=== PATIENT | female | born 1960 | race Caucasian/White ===

== ENCOUNTER 2020-02-23 14:48 | Emergency (ER) | payer MEDICARE, SELFPAY ==
[2020-02-23 14:56] VITALS: BMI 22.6
[2020-02-23 15:01] VITALS: BP 152/109; PULSE 110; RESP 18; TEMP 37.1; O2SAT 97
[2020-02-23 15:08] VITALS: PULSE 99; RESP 18; O2SAT 96
--- NOTE | 2020-02-23 15:12 | PC.NURSE ---
PT STATES SHE HAS A PENDING TEST RESULT FOR COVID. PT PLACED ON DROPLET/AIRBORN PRECAUTIONS.
--- NOTE | 2020-02-23 15:17 | XR_ITS ---
WS: [id number] CHEST XRAY TECHNIQUE: Portable chest. CLINICAL INFORMATION: cough sob COMPARISON: None. FINDINGS: Heart: Normal cardiac silhouette. Lungs: Chronic emphysematous changes. No acute pulmonary infiltrates. No focal pneumonia. Bones: Normal visualized bony structures. XR/XR chest 1V portable [id number] IMPRESSION: Chronic emphysematous changes. No acute chest finding.
--- NOTE | 2020-02-23 15:17 | W.ED.GENADLT ---
HPI - General Adult General: Chief complaint: General Medical Stated complaint: poss allergic reaction Time Seen by Provider: 02/23/20 15:07 Source: patient Mode of arrival: ambulatory Limitations: no limitations History of Present Illness: HPI narrative: 60-year-old female comes in today for abnormal sensation after using a breathing treatment. Patient reports that she felt jittery and tingly all over after her second breathing treatment today. Patient has been put on albuterol with ipratropium for persistent cough with the diagnosis of pneumonia. Patient is also been tested for COVID x2 with the first test coming back negative. Patient appears well. Patient appears in no pain. Patient does appear anxious. Review of Systems General: Reports: 10 or more systems reviewed and unremarkable except in HPI and below Psych: Reports: other (tingling all over) PFSH ED PFSH: Social History Smoking and tobacco status: never smoked Physical Exam Const: COMMON NORMALS: no apparent distress and oriented x3 GENERAL APPEARANCE: cooperative HENMT: COMMON NORMALS: normocephalic, TM's normal bilaterally and external nose normal HEAD & SCALP: normal to inspection and normocephalic NOSE: external nose normal TYMPANIC MEMBRANE: TM's normal bilaterally MOUTH: oral and palatal mucosa normal THROAT: posterior oropharynx normal Eye: GENERAL EYE: normal appearance of both eyes Neck/C-Spine: COMMON NORMALS: full ROM Lymph: LYMPHATIC: no lymphadenopathy noted Chest: COMMONS NORMALS: inspection of chest normal OTHER: bibasilar rhonchi Resp: COMMON NORMALS: normal respiratory effort EFFORT & INSPECTION: Yes able to speak in complete sentences Cardio: COMMON NORMALS: regular rate and regular rhythm RATE: regular rate RHYTHM: regular rhythm GI: COMMON NORMALS: non-tender : COMMON NORMALS: Yes no CVA tenderness BLADDER/KIDNEY EXAM: Yes no CVA tenderness Back/Pelvis: COMMON NORMALS: no CVA tenderness and thoracic and lumbar spine normal to inspection Extremity: COMMON NORMALS: normal to inspection Neuro: COMMON NORMALS: oriented x3 and moves all extremities Psych: COMMON NORMALS: mental status grossly normal and cooperative Skin: COMMON NORMALS: no rashes or lesions noted GENERAL SKIN EXAM: no rashes or lesions noted Course Vital Signs: Vital signs: Vital Signs Temperature 98.8 F 02/23/20 15:01 Pulse Rate 99 02/23/20 15:08 Respiratory Rate 18 02/23/20 15:08 Blood Pressure 152/109 02/23/20 15:01 Pulse Oximetry 96 02/23/20 15:08 MDM - General Adult MDM Narrative: Medical decision making narrative: Patient comes in today for concerns of increased numbness and tingling all over after using albuterol breathing treatments. Exam lungs had good air expansion except for crackles in the bases. Respirations were even. Skin was warm and dry. No rash was noted. Differential diagnosis includes anxiety, adverse drug effect, pneumonia, respiratory failure. X-ray was done showing emphysematous type lungs. Patient has no history of COPD or asthma. Recommended patient follow-up with pulmonology due to persistent dyspnea and persistent cough. Patient was agreeable to plan. Patient has a family history of interstitial lung disease with her mother being positive for. Discharge Plan Discharge Patient Disposition: Home, Self-Care Clinical Impression: Abnormality of lung on chest x-ray Adverse effects of medication Qualifiers: Encounter type: initial encounter Qualified Code(s): T50.905A - Adverse effect of unspecified drugs, medicaments and biological substances, initial encounter Condition: Stable Prescriptions: No Action promethazine-DM 6.25-15 mg/5 mL syrup 6.25 - 15 ml PO Q6H PRN (Reason: Cough) RF: 0 albuterol sulfate 1.25 mg/3 mL Solution For Nebulization 1.25 mg INHALATION Q4H RF: 0 prednisone 20 mg tablet 20 mg PO DAILY RF: 0 citalopram 20 mg tablet 20 mg PO DAILY RF: 0 budesonide 0.5 mg/2 mL suspension for nebulization 0.5 mg inhalation BID RF: 0 diazepam 10 mg tablet 10 mg PO QID RF: 0 levofloxacin 500 mg tablet 500 mg PO DAILY RF: 0 Mucus Relief 400 mg Tablet 400 mg PO Q4H PRN (Reason: Congestion) RF: 0 duloxetine 60 mg capsule,delayed release(DR/EC) 60 mg PO DAILY RF: 0 Discharge Orders: Discharge Order (Routine); Ordered 02/23/20 Ordered By: Jmashid Salomon Referrals: Antwan Soni DO [Primary Care Provider] - Discharge Diet: Usual diet Discharge Activity: Increase activity as tolerated Patient Instructions: Pneumonia (ED) Activity Restrictions/Additional Instructions: Continue with prescribed medical treatment. Drink plenty of water with medications. Continue with self quarantine until results of second COVID test. Healthy diet and exercise. Follow-up with primary care in 1 week. Return to the emergency department for worsening symptoms or new concerns. Case management will contact you with follow-up appointment with pulmonology. Coding Level of Care Code ED Filler Feeder for Carlos Rollins Exam Comprehensive
[2020-02-23 16:39] VITALS: BP 149/94; PULSE 85; RESP 17; O2SAT 93
--- NOTE | 2020-02-25 11:10 | DCPLANNER ---
finance insurance manager had message to schedule a follow up appointment for patient with [facility], with Dr. Mayen. finance insurance manager called [facility], spoke with Becky, gave clinic patients information. A follow up appointment was scheduled for , March 02, 2020 at 11:[address] Mayen. Clinic will call patient wit appointment information.
--- NOTE | 2020-04-26 10:18 | DCPLANNER ---
Appointment scheduled for 03.02.20 with [facility] was cancelled.
== END 2020-02-23 16:28 | disposition home or self-care (01) ==
PROVIDERS: Emergency Provider Nurse Practitioner Family; PCP Internal Medicine
DX: T88.7XXA Unspecified adverse effect of drug or medicament, initial encounter (principal); T50.905A Adverse effect of unspecified drugs, medicaments and biological substances, initial encounter; R91.8 Other nonspecific abnormal finding of lung field
CPT/HCPCS: 12345; 71045; 99282

== ENCOUNTER 2020-02-29 00:29 | Inpatient (IN) | payer MEDICARE, SELFPAY ==
[2020-02-29] VITALS (8 sets, daily range): BP systolic 96–146; BP diastolic 63–104; PULSE 74–97; RESP 16–20; TEMP 37.1–37.2; O2SAT 93–97; BMI 18.6
--- NOTE | 2020-02-29 01:05 | W.ED.GENADLT ---
HPI - General Adult General: Chief complaint: General Medical Stated complaint: bleeding from nose/vag/rectum Time Seen by Provider: 02/29/20 00:35 History of Present Illness: HPI narrative: Mrs. Woo is a 60-year-old female who comes in with multiple complaints. She is tearful and almost acts like a child at times when trying to interview and examine her. The patient is a poor historian secondary to these findings. As best as I can gather the patient states that she developed a nosebleed then vaginal spotting and rectal bleeding tonight. The patient states that she was diagnosed with a viral type of bronchitis or pneumonia but has not been getting better. She states she has been tested twice for COVID-19 but is tested negative on both occasions. Patient states that she hurts diffusely. When I tried to ask her about other symptoms she continues to go back to the story of nasal and vaginal/rectal bleeding. My charge nurse talk to the patient's over the phone who states the patient has been acting bizarre for the past several days. He states it started whenever she was diagnosed with the viral bronchitis. Associated symptoms: Deny chest pain, confusion, diaphoresis, dyspnea, headache(s), malaise, nausea, rash, palpitations, syncope or vomiting Review of Systems General: Reports: other (negative unless marked) Const: Denies: fever, chills, body aches, fatigue, malaise or diaphoresis Eyes: Denies: change in vision or blurry vision ENMT: Reports: nose bleeds; Denies: throat pain, painful swallowing, hoarseness, ear pain, ear discharge, Change in hearing or nasal discharge Card: Denies: chest pain, palpitations, irregular heart rhythm, syncope, pre-syncope, shortness of breath on exertion or shortness of breath when lying down Resp: Denies: shortness of breath, productive cough, non-productive cough, wheezing, coughing up blood or chest congestion GI: Reports: blood in stool; Denies: abdominal pain, nausea, vomiting, vomiting blood, coffee grounds in vomit, diarrhea, constipation, cramping or black tarry stool : Reports: vaginal bleeding; Denies: flank pain, painful urination, urinary frequency, urinary urgency, decreased urine ouput, urinary incontinence or blood in urine Musc: Denies: neck pain, back pain, extremity pain, extremity swelling, joint pain, joint swelling, joint warmth or joint stiffness Skin/Breast: Denies: rash, skin tenderness or yellow skin Neuro: Denies: headache, numbness in extremities, weakness in extremities, changes in sensation, lack of coordination, difficulty walking, dizziness, vertigo or confusion Endo: Denies: excessive thirst, tired all the time, cold intolerance, excessive sweating, flushing or hot flashes Tyrel/Lymph: Denies: easy bruising, easy bleeding, petechiae or enlarged lymph nodes All/Imm: Denies: hives, throat swelling, tongue swelling, facial swelling or acute wheezing PFSH ED PFSH: Medical History (Updated 02/29/20 @ 03:53 by Yue Coffey MD) BPPV (benign paroxysmal positional vertigo) Depression Fibromyalgia Hypertension Normal colonoscopy Palpitations Surgical History (Updated 02/29/20 @ 03:52 by Yue Coffey MD) H/O ovarian cystectomy Hx of cholecystectomy S/P brain surgery As per the patient she has had decompressive surgeries for 8th nerve decompression for vertigo Status post right breast lumpectomy Social History Smoking and tobacco status: never smoked Physical Exam Const: COMMON NORMALS: no apparent distress, oriented x3, no limitations, healthy appearing and well nourished EXAM LIMITATIONS: no altered mental status GENERAL APPEARANCE: cooperative, well kempt and well developed ORIENTATION/CONSCIOUSNESS: Yes awake HENMT: COMMON NORMALS: normocephalic, head/scalp atraumatic, hearing grossly normal bilaterally, external ears normal, EAC's normal and external nose normal HEAD & SCALP: normal to inspection, normocephalic and atraumatic FACE & SINUS: normal facial exam and face symmetric NOSE: external nose normal and nares normal EXTERNAL EAR: Yes external ears normal EXTERNAL AUDITORY CANAL: EAC's normal MOUTH: tongue normal and moist mucous membranes abnormal Details: parched Eye: COMMON NORMALS: PERRL, EOMs intact bilaterally, conjunctivae normal and no scleral icterus GENERAL EYE: normal appearance of both eyes and normal light reflex CONJUNCTIVA: Yes conjunctivae normal SCLERA: sclerae normal CORNEA: Yes corneas normal PUPIL: Yes PERRL DIRECT OPHTHALMOSCOPY: Yes normal light reflex Neck/C-Spine: COMMON NORMALS: full ROM, no lymphadenopathy, supple, no meningeal signs and no JVD GENERAL: Yes normal visual inspection and Yes trachea midline CERVICAL SPINE: Yes cervical ROM normal Chest: COMMONS NORMALS: inspection of chest normal and palpation of chest normal Resp: COMMON NORMALS: normal respiratory effort, no retractions, no use of accessory muscles and clear to auscultation bilaterally EFFORT & INSPECTION: Yes able to speak in complete sentences AUSCULTATION: clear to auscultation bilaterally Cardio: COMMON NORMALS: no JVD, regular rate, regular rhythm, S1 normal heart sound, S2 normal heart sound, no gallops, no clicks, no murmurs and no rub JUGULAR VENOUS DISTENTION: no JVD RATE: regular rate RHYTHM: regular rhythm HEART SOUNDS: S1 normal and S2 normal GI: COMMON NORMALS: soft to palpation, non-tender, no hepatosplenomegaly and no masses INSPECTION: Yes normal to inspection PALPATION: Yes soft and Yes no hepatosplenomegaly RECTAL EXAM: visual inspection normal, normal sphincter tone and No heme positive stool : COMMON NORMALS: Yes no CVA tenderness and Yes bimanual exam normal BLADDER/KIDNEY EXAM: Yes no CVA tenderness SPECULUM EXAM - VAGINA: Yes vagina atrophic mucosa, No vaginal cyst, No vaginal erythema, No foreign body in vagina, No vaginal laceration, No vaginal lesion, No vaginal bleeding, No tissue present in vagina, No vaginal mass, No vaginal swelling, No vaginal tenderness, No vaginal polyp, No vaginal discharge and No vaginal ecchymosis SPECULUM EXAM - CERVIX: No cervical mass and No cervical tenderness BIMANUAL EXAM - VAGINA & UTERUS: Yes normal bimanual exam, Yes normal vaginal palpation, Yes normal cervical palpation, Yes cervical motion tenderness and No cervical tenderness OB/EXTERNAL & SPECULUM: no foreign bodies, no tissue noted in vagina and vaginal bleeding Back/Pelvis: COMMON NORMALS: no CVA tenderness, thoracic and lumbar spine normal to inspection, no thoracic nor lumbar tenderness and thoraco-lumbar ROM normal Extremity: COMMON NORMALS: normal to inspection, full ROM, normal capillary refill, no joint enlargement, no clubbing, cyanosis or edema and no calf tenderness Neuro: COMMON NORMALS: oriented x3, CN's II-XII intact bilaterally, moves all extremities, no focal motor deficits and no sensory deficits noted MENINGEAL SIGNS: Yes no meningeal signs Psych: COMMON NORMALS: mental status grossly normal, thought process normal, cooperative, affect normal, speech normal and activity/motor behavior normal APPEARANCE: Yes well kempt SPEECH: Yes normal speech THOUGHT PROCESS: normal thought process Skin: COMMON NORMALS: no rashes or lesions noted, skin turgor normal, no jaundice, no petechiae and no mottling GENERAL SKIN EXAM: no rashes or lesions noted and turgor normal Course ED course: 0127 - Orthostatic VSs - normal. Vital Signs: Vital signs: Vital Signs Temperature 98.7 F 02/29/20 00:44 Pulse Rate 75 02/29/20 00:44 Respiratory Rate 18 02/29/20 00:44 Blood Pressure 139/104 02/29/20 00:44 Pulse Oximetry 96 02/29/20 00:44 MDM - General Adult MDM Narrative: Medical decision making narrative: The patient acting bizarre has been a limit to my abilities to get an accurate history. She is able to answer yes/no questions so I believe her review of systems is accurate as long as she is being truthful. I have tried to reach her again by phone to get more history but he has been unreachable up to this point. Clinically the patient does appear very dehydrated as she has dry mucous membranes and we placed a straight cath in and only got 1 cc of urine out. She is also hyponatremic. It is very possible this could be a secondary dehydration due to a viral syndrome. The patient does not clinically appear to have encephalitis or meningitis. I see no evidence of pneumonia on her chest x-ray. UTI of course is a possibility and we will test this when she is able to make urine. A Col[place] catheter has been placed to strictly monitor urine output. I endorsed the case to Dr. Coffey and he will come down to see the patient in the emergency department to see if any other testing will be necessary on an inpatient basis and to admit her for at least rehydration. The patient very well need a psychiatric consult once she has been cleared definitively of any medical issues. Lab Data: Attestation: I reviewed the patient's lab results. Labs: Lab Results 02/29/20 02/29/20 02/29/20 Range/Units 01:05 01:05 01:05 WBC 16.8 H (4.0-10.0) 10^3/ uL RBC 5.37 H (4.1-5.3) 10^6/u L Hgb 15.2 (11.5-15.3) g/dL Hct 47.3 H (37.0-47.0) % MCV 88.1 (81-99) fL MCH 28.3 (28.0-34.0) pg MCHC 32.1 (30.0-36.0) g/dL RDW 13.1 (12.1-15.1) % Plt Count 377 (130-400) 10^3/c mm MPV 9.7 (7.4-10.4) fL Neut % (Auto) 91.0 % Lymph % (Auto) 5.5 % Mcdonough % (Auto) 2.9 % Eos % (Auto) 0.1 % Baso % (Auto) 0.1 % Neut # (Auto) 15.3 H (1.8-7.7) 10^3/u L Lymph # (Auto) 0.9 (0.8-4.8) 10^3/u L Mcdonough # (Auto) 0.5 (0.2-0.9) 10^3/u L Eos # (Auto) 0.0 (0.0-0.8) 10^3/u L Baso # (Auto) 0.0 (0.0-0.1) 10^3/u L Nucleated RBC % (a uto) 0 % Nucleated RBCs # 0.0 /100WBC PT 12.10 (10.5-13.3) SECO NDS INR 0.87 (0.8-1.2) APTT 28.9 (23.9-36.7) SECO NDS Sodium (136-145) mmol/L Potassium (3.5-5.1) mmol/L Chloride (98-107) mmol/L Carbon Dioxide (22-29) mmol/L Anion Gap (5-19) BUN (6-20) mg/dL Creatinine (0.5-0.9) mg/dL GFR Calculation (90-130) mL/min Glucose (65-115) mg/dL Calculated Osmolal ity (285-295) mOsm/k g Lactic Acid (0.5-2.2) mmol/L Calcium (8.5-10.5) mg/dL Total Bilirubin (0.15-1.2) mg/dL AST (0-32) U/L ALT (0-33) U/L Alkaline Phosphata se (35-105) IU/L Troponin T Baselin e (0-10) ng/mL Troponin T 120 Min [place] (0-10) ng/mL Delta Troponin T (0-10) ABS# Total Protein (6.6-8.7) g/dL Albumin (3.5-5.2) g/dL Globulin (1.3-4.6) g/dL Urine Color (Yellow) Urine Appearance (CLEAR) Urine pH (5-7) Ur Specific Gravit y (1.005-1.030) Urine Protein (Negative) Urine Glucose (UA) (Normal) Urine Ketones (Negative) Urine Blood (Negative) Urine Nitrate (Negative) Urine Bilirubin (NEGATIVE) Urine Urobilinogen (Negative) mg/dL Ur Leukocyte Selam ase (Negative) Urine RBC (0-2) /hpf Urine WBC (0-5) /hpf Ur Squamous Epith Cells (0-5) Urine Bacteria (NONE) Serum Ketones (Negative) Blood Type A Positive Rho(D) Type Positive Antibody Screen Negative 02/29/20 02/29/20 02/29/20 Range/Units 01:05 01:05 02:32 WBC (4.0-10.0) 10^3/ uL RBC (4.1-5.3) 10^6/u L Hgb (11.5-15.3) g/dL Hct (37.0-47.0) % MCV (81-99) fL MCH (28.0-34.0) pg MCHC (30.0-36.0) g/dL RDW (12.1-15.1) % Plt Count (130-400) 10^3/c mm MPV (7.4-10.4) fL Neut % (Auto) % Lymph % (Auto) % Mcdonough % (Auto) % Eos % (Auto) % Baso % (Auto) % Neut # (Auto) (1.8-7.7) 10^3/u L Lymph # (Auto) (0.8-4.8) 10^3/u L Mcdonough # (Auto) (0.2-0.9) 10^3/u L Eos # (Auto) (0.0-0.8) 10^3/u L Baso # (Auto) (0.0-0.1) 10^3/u L Nucleated RBC % (a uto) % Nucleated RBCs # /100WBC PT (10.5-13.3) SECO NDS INR (0.8-1.2) APTT (23.9-36.7) SECO NDS Sodium 127 L (136-145) mmol/L Potassium 4.4 (3.5-5.1) mmol/L Chloride 84 L (98-107) mmol/L Carbon Dioxide 24 (22-29) mmol/L Anion Gap 23.4 H (5-19) BUN 6 (6-20) mg/dL Creatinine 0.6 (0.5-0.9) mg/dL GFR Calculation 102.7 (90-130) mL/min Glucose 99 (65-115) mg/dL Calculated Osmolal ity 260 L (285-295) mOsm/k g Lactic Acid 1.1 (0.5-2.2) mmol/L Calcium 10.0 (8.5-10.5) mg/dL Total Bilirubin 1.1 (0.15-1.2) mg/dL AST 28 (0-32) U/L ALT 16 (0-33) U/L Alkaline Phosphata se 157 H (35-105) IU/L Troponin T Baselin e 11 H (0-10) ng/mL Troponin T 120 Min [place] (0-10) ng/mL Delta Troponin T (0-10) ABS# Total Protein 8.6 (6.6-8.7) g/dL Albumin 5.2 (3.5-5.2) g/dL Globulin 3.4 (1.3-4.6) g/dL Urine Color (Yellow) Urine Appearance (CLEAR) Urine pH (5-7) Ur Specific Gravit y (1.005-1.030) Urine Protein (Negative) Urine Glucose (UA) (Normal) Urine Ketones (Negative) Urine Blood (Negative) Urine Nitrate (Negative) Urine Bilirubin (NEGATIVE) Urine Urobilinogen (Negative) mg/dL Ur Leukocyte Selam ase (Negative) Urine RBC (0-2) /hpf Urine WBC (0-5) /hpf Ur Squamous Epith Cells (0-5) Urine Bacteria (NONE) Serum Ketones (Negative) Blood Type Rho(D) Type Antibody Screen 02/29/20 02/29/20 02/29/20 Range/Units 02:32 03:15 03:24 WBC (4.0-10.0) 10^3/ uL RBC (4.1-5.3) 10^6/u L Hgb (11.5-15.3) g/dL Hct (37.0-47.0) % MCV (81-99) fL MCH (28.0-34.0) pg MCHC (30.0-36.0) g/dL RDW (12.1-15.1) % Plt Count (130-400) 10^3/c mm MPV (7.4-10.4) fL Neut % (Auto) % Lymph % (Auto) % Mcdonough % (Auto) % Eos % (Auto) % Baso % (Auto) % Neut # (Auto) (1.8-7.7) 10^3/u L Lymph # (Auto) (0.8-4.8) 10^3/u L Mcdonough # (Auto) (0.2-0.9) 10^3/u L Eos # (Auto) (0.0-0.8) 10^3/u L Baso # (Auto) (0.0-0.1) 10^3/u L Nucleated RBC % (a uto) % Nucleated RBCs # /100WBC PT (10.5-13.3) SECO NDS INR (0.8-1.2) APTT (23.9-36.7) SECO NDS Sodium (136-145) mmol/L Potassium (3.5-5.1) mmol/L Chloride (98-107) mmol/L Carbon Dioxide (22-29) mmol/L Anion Gap (5-19) BUN (6-20) mg/dL Creatinine (0.5-0.9) mg/dL GFR Calculation (90-130) mL/min Glucose (65-115) mg/dL Calculated Osmolal ity (285-295) mOsm/k g Lactic Acid (0.5-2.2) mmol/L Calcium (8.5-10.5) mg/dL Total Bilirubin (0.15-1.2) mg/dL AST (0-32) U/L ALT (0-33) U/L Alkaline Phosphata se (35-105) IU/L Troponin T Baselin e (0-10) ng/mL Troponin T 120 Min [place] 8.70 (0-10) ng/mL Delta Troponin T -2.30 L (0-10) ABS# Total Protein (6.6-8.7) g/dL Albumin (3.5-5.2) g/dL Globulin (1.3-4.6) g/dL Urine Color Yellow (Yellow) Urine Appearance Clear (CLEAR) Urine pH 6.5 (5-7) Ur Specific Gravit y 1.005 (1.005-1.030) Urine Protein Neg (Negative) Urine Glucose (UA) Norm (Normal) Urine Ketones 2+ H (Negative) Urine Blood 2+ H (Negative) Urine Nitrate Negative (Negative) Urine Bilirubin Neg (NEGATIVE) Urine Urobilinogen Norm (Negative) mg/dL Ur Leukocyte Selam ase Negative (Negative) Urine RBC 0-4 H (0-2) /hpf Urine WBC Rare (0-5) /hpf Ur Squamous Epith Cells 0-4 H (0-5) Urine Bacteria 1+ H (NONE) Serum Ketones Negative (Negative) Blood Type Rho(D) Type Antibody Screen Imaging Data^: CXR: My impression: Hyperinflation but no evidence of acute cardiopulmonary disease. Similar to previous. EKG Data^: EKG 1: Attestation: I personally reviewed and interpreted this EKG as follows: EKG interpretation date: 02/29/20 EKG interpretation time: 02:55 Interpretation: Normal sinus rhythm at 72 beats a minute, setting of wandering and baseline artifact. No definite ST or T wave changes. Discharge Plan Discharge Patient Disposition: Placed in Observation Clinical Impression: Acute dehydration, Acute hyponatremia Altered mental status Qualifiers: Altered mental status type: unspecified Qualified Code(s): R41.82 - Altered mental status, unspecified Condition: Stable Referrals: Antwan Soni DO [Primary Care Provider] - Coding Level of Care Code ED Nuclear Fuel Processing Technician for g Fwd Exam Comprehensive
[2020-02-29 01:13] LABS: Basophils % 0.1 %; Eosinophils % 0.1 %; Hematocrit 47.3 % (37.0-47.0); Hemoglobin 15.2 g/dL (11.5-15.3); Lymphocytes # 0.9 10^3/uL (0.8-4.8); Lymphocytes % 5.5 %; Mean Corpuscular HGB Conc 32.1 g/dL (30.0-36.0); Mean Corpuscular Hemoglobin 28.3 pg (28.0-34.0); Mean Corpuscular Volume 88.1 fL (81-99); Mean Platelet Volume 9.7 fL (7.4-10.4); Monocytes # 0.5 10^3/uL (0.2-0.9); Monocytes % 2.9 %; Neutrophils # 15.3 10^3/uL (1.8-7.7); Nucleated Red Blood Cells % 0 %; Platelet Count 377 10^3/cmm (130-400); Red Blood Count 5.37 10^6/uL (4.1-5.3); Red Cell Distribution Width 13.1 % (12.1-15.1); White Blood Count 16.8 10^3/uL (4.0-10.0)
--- NOTE | 2020-02-29 01:21 | XR_ITS ---
WS: [id number] PORTABLE CHEST HISTORY: cough COMPARISON: 02/23/2020 Pulmonary hyperexpansion with emphysema. No pneumonia. Normal vasculature. No pleural effusion or pne umothorax. Cardiac size: Normal. Mediastinum/Aorta: Normal mediastinum. No osseous abnormality seen. XR/XR chest 1V portable [id number] IMPRESSION: Chronic emphysema with no acute cardiopulmonary disease.
[2020-02-29 01:24] LABS: INR 0.87 (0.8-1.2)
[2020-02-29 01:25] LABS: Partial Thromboplastin Time 28.9 SECONDS (23.9-36.7)
[2020-02-29 01:35] LABS: Alanine Aminotransferase 16 U/L (0-33); Albumin Level 5.2 g/dL (3.5-5.2); Alkaline Phosphatase 157 IU/L (35-105); Anion Gap 23.4 (5-19); Aspartate Amino Transferase 28 U/L (0-32); Blood Urea Nitrogen 6 mg/dL (6-20); Carbon Dioxide 24 mmol/L (22-29); Chloride 84 mmol/L (98-107); Globulin 3.4 g/dL (1.3-4.6); Glomerular Filtration Rate 102.7 mL/min (90-130); Glucose 99 mg/dL (65-115); Osmolality Calculated 260 mOsm/kg (285-295); Potassium 4.4 mmol/L (3.5-5.1); Sodium 127 mmol/L (136-145); Total Bilirubin 1.1 mg/dL (0.15-1.2); Total Protein 8.6 g/dL (6.6-8.7)
--- NOTE | 2020-02-29 01:40 | ECG_ITS ---
Measurements Intervals [place] Rate: 72 P: MA: 0 QRS: 65 QRSD: 74 T: 101 QT: 382 QTc: [address] & T-WAVE ABNORMALITY ABNORMAL RHYTHM ECG No previous ECG available for comparison Electronically Signed On 02-29-2020 18:09:55 CDT by Yue Ramirez M.D. [id number]
[2020-02-29 02:14] LABS: Troponin(5th) Baseline 11 ng/mL (0-10)
[2020-02-29 02:51] LABS: ABG PCO2 33.8 mmHg (35-45); ABG PH Result 7.43 (7.35-7.45); Arterial Blood Gas Hematocrit 41.4 % (37-47); Base Excess ABG -1.3 mmol/L (-2.0-2.0); Blood Gas Allen Test Pos; Blood Gas Sample Site Brachial, left; Blood Gas Sample Type Arterial; HCO3 ABG 22.4 mmol/L (22-26); PO2 ABG 76.8 mmHg (80.0-100.0)
[2020-02-29 02:55] LABS: Lactic Sepsis W/Reflex 1.1 mmol/L (0.5-2.2)
[2020-02-29] MEDS: sodium chloride 0.9% 1,000 ML 999 ML IV (02:57)
[2020-02-29 02:59] LABS: Ketone (Acetest) Serum Negative (Negative)
--- NOTE | 2020-02-29 03:40 | ECG_ITS ---
Measurements Intervals [place] Rate: 69 P: 89 MO: 125 QRS: 78 QRSD: 76 T: 60 QT: 357 QTc: 384 SINUS RHYTHM RIGHT ATRIAL ENLARGEMENT [0.3mV P WAVE] POSSIBLE LEFT ATRIAL ENLARGEMENT [-0.1mV P WAVE IN V1/V2] NONSPECIFIC T-WAVE ABNORMALITY No previous ECG available for comparison Electronically Signed On 02-29-2020 18:12:48 CDT by Yue Ramirez M.D. [email or web address]
[2020-02-29] MEDS: sodium chloride 0.9% 1,000 ML 100 ML IV ×2 (03:42→09:30)
[2020-02-29 03:44] LABS: Bacteria Urine 1+; Bilirubin Urine Neg (NEGATIVE); Blood Urine 2+ (Negative); Glucose Urine UA Norm (Normal); Ketones Urine 2+ (Negative); Leukocyte Esterase Urine Negative (Negative); Nitrate Urine Negative (Negative); Protein Urine Neg (Negative); RBC Urine 0-4 /hpf (0-2); Specific Gravity, Urine 1.005 (1.005-1.030); Squamous Epithelial Cell Urine 0-4 (0-5); Urine Appearance Clear (CLEAR); Urine Color Yellow (Yellow); Urobilinogen Urine Norm (Negative); WBC Urine RARE /hpf (0-5); pH Urine 6.5 (5-7)
--- NOTE | 2020-02-29 03:48 | PM.HP ---
Providers/Chief Complaint Primary Care Provider: Antwan Soni DO Chief Complaint: bleeding from nose/vag/rectum History of Present Illness Alla Woo is a 60 year old female who carries diagnosis of fibromyalgia, anxiety/depression came in after experiencing generalized body aches. Patient is stating that she suffered from upper airway infection 3 weeks ago for which she was treated with p.o. antibiotics, she was tested for COVID twice which was negative. She is stating that she is hurting all over, her energy is very low, she also endorsed some of her feelings that God came down to take care of her, he took her in his lap . She is endorsing that she is not eating well because of abnormal taste, she is not able to drink water because of abnormal taste as well. She is denying orthopnea, PND, fever, dysuria, change in bowel habits. Endorsing nonproductive cough, difficulty concentration while talking or doing any activity. As per the she has been acting bizarre since diagnosis of bronchitis. She told ER physician back she came to the hospital because she was bleeding from her nose, per rectum and vaginally, ER physician examined her, no evidence of bleeding was found. Diagnostics in ER revealed signs of dehydration with positive urinary ketones, hyponatremia, leukocytosis, normal hemodynamics, chest x-ray shows normal lungs however hyperinflated, EKG showing sinus rhythm with normal heart rate Review of Systems Const: Reports: chills, body aches, change in appetite, change in weight and fatigue; Denies: fever Eyes: Denies: change in vision ENMT: Reports: throat pain, mouth pain and dry mouth Card: Denies: chest pain Resp: Denies: shortness of breath GI: Denies: abdominal pain or nausea : Denies: flank pain or difficulty urinating Musc: Reports: back pain, extremity pain, joint pain and muscle cramps Skin/Breast: Denies: rash Neuro: Denies: headache Psych: Denies: anxiety Endo: Denies: excessive urination Tyrel/Lymph: Denies: easy bruising All/Imm: Denies: hives Medications/Allergies Home Medications Medication Instructions Recorded Confirmed Last Taken Type albuterol sulfate 1.25 mg INHALATION Q4H 02/23/20 02/23/20 02/23/20 History budesonide 0.5 mg INHALATION BID 02/23/20 02/23/20 02/23/20 History citalopram 20 mg PO DAILY 02/23/20 02/23/20 02/23/20 History diazepam 10 mg PO QID 02/23/20 02/23/20 02/23/20 History duloxetine 60 mg PO DAILY 02/23/20 02/23/20 02/23/20 History guaifenesin [Mucus Relief] 400 mg PO Q4H PRN 02/23/20 02/23/20 02/23/20 History levofloxacin 500 mg PO DAILY 02/23/20 02/23/20 02/23/20 History prednisone 20 mg PO DAILY 02/23/20 02/23/20 02/23/20 History promethazine-DM 6.25 - 15 ml PO Q6H PRN 02/23/20 02/23/20 02/23/20 History Allergies Allergy/AdvReac Type Severity Reaction Status Date / Time codeine Allergy Unknown Verified 02/23/20 15:03 [email or web address] [From Nubain] Allergy ALGY-Rash Verified 02/23/20 15:03 PFSH Acute PFSH: Medical History BPPV (benign paroxysmal positional vertigo) Depression Fibromyalgia Hypertension Normal colonoscopy Palpitations Surgical History H/O ovarian cystectomy Hx of cholecystectomy S/P brain surgery As per the patient she has had decompressive surgeries for 8th nerve decompression for vertigo Status post right breast lumpectomy Family History (Updated 02/29/20 @ 04:54 by Yue Coffey MD) Denies family history of Diabetes Clotting disorder Dementia Social History (Updated 02/29/20 @ 04:54 by Yue Coffey MD) Smoking and tobacco status: never smoked Alcohol intake: never Substance/Drug Use: never Household members: spouse Housing: House Vitals/I&O/Wt Last Vital Signs Temp 98.7 F 02/29/20 00:44 Pulse 75 02/29/20 00:44 Resp 18 02/29/20 00:44 BP 139/104 02/29/20 00:44 Pulse Ox 96 02/29/20 00:44 Weight last 48 hrs Weight 77.111 kg Physical Exam Narrative: EXAM NARRATIVE: Patient covered in multiple layers complaining of chills She is articulating in a childish manner, Able to state above-mentioned story, awake alert oriented x3, GCS 15, she complains of pain wherever I touch on her upper and lower extremities She looks dehydrated, extremely dry tongue S1, S2 no active murmur Abdomen soft, nontender, nondistended bowel sound present Lungs are clear to auscultation She seems very anxious and talking about God taking care of her, dilated pupils reactive to light, Skin does not show any sign of ischemia gangrene or ulcer Colmenares catheter that was placed in the ER only drained 1 cc of urine, catheter was removed later on Data : 02/29/20 01:05 02/29/20 01:05 A&P Assessment and plan (1) Acute dehydration: Status: Acute (2) Hyponatremia: Status: Acute (3) Metabolic encephalopathy: Status: Acute (4) Altered mental status: Status: Acute Qualifiers: Altered mental status type: unspecified Qualified Code(s): R41.82 - Altered mental status, unspecified (5) Adverse effects of medication: Status: Acute Qualifiers: Encounter type: initial encounter Qualified Code(s): T50.905A - Adverse effect of unspecified drugs, medicaments and biological substances, initial encounter (6) Bizarre behavior: Status: Acute Additional A&P Information Metabolic encephalopathy due to dehydration Trend sodium level, sodium level to be checked at 8 AM and then around 12 PM Clinically patient is dry and dehydrated Patient has not been maintaining good p.o. intake, denying diarrhea or urinary frequency Normal saline at 100 mL, fluid rate to be titrated depending on next sodium level Hypovolemic hyponatremia She is dehydrated We will check urine and serum osmolarity, urine sodium level, acuity of hyponatremia is difficult to assess at this time however labs from 2008 shows normal sodium level, for now I would manage her as chronic hyponatremia with slow correction of sodium level I would go ahead and start normal saline for now Stop SSRI Check TSH and uric acid Fibromyalgia: Patient is complaining of hurting all over: Would continue duloxetine for now Subacute bronchitis Nonproductive cough, chest x-ray showing hyperinflated lungs without acute remarkable findings, I would treat her for upper airway infection with azithromycin Leukocytosis: This is most likely reaction to stress because of dehydration, no active source of infection identified, she is not septic, she is afebrile, lactic acid normal Full code DVT prophylaxis: Lovenox She might need a psychiatry consult for readjustment of her antidepressants Attestations Medical Necessity Statement*: Anticipating discharge in less than 48 hours if she improves clinically, trend sodium level, currently suffering from metabolic encephalopathy Time Spent in Patient Care: 45 Coding Level of Care Code Acute Computer Network Specialist for [facility] Fwd Diagnoses Acute dehydration E86.0 Hyponatremia E87.1 Metabolic encephalopathy G93.41 Altered mental status R41.82 Altered mental status type: unspecified Adverse effects of medication T50.376N Encounter type: initial encounter Bizarre behavior R46.2
[2020-02-29 07:44] LABS: Thyroid Stimulating Hormone 0.33 uIU/mL (0.27-4.20)
[2020-02-29 09:18] LABS: Sodium 139 mmol/L (136-145)
[2020-02-29] MEDS: duloxetine 60 mg Capsule PO (09:29)
[2020-02-29] MEDS: azithromycin 250 mg Tablet 500 MG PO (09:29)
[2020-02-29] MEDS: enoxaparin 40 mg/0.4 mL Syringe SUBCUT (09:30)
[2020-02-29 10:17] LABS: Urine Random Sodium 39 mmol/L
--- NOTE | 2020-02-29 12:00 | PC.CHAP ---
Pastoral Care Encounter/Spiritual Assessment Type of Contact [] Declined train brakeman visit [] Patient/Family/Request visit [] Outpatient visit [] Follow-up visit [] Physician referral [] Code/Alert [x] Routine visit [] Staff referral [] Actively dying [] Patient sleeping [] Family support [] [] Out of room [] Palliative care [] [x] Receiving care in room [] Pre-surgical visit [] Trauma [] Long length of stay [] ICU visit [] Other: Relational/Emotional Strength [x] Patient feels connected with others/family/visitors/staff [x] Distress [] Loneliness/isolation [] Abandonment Spirituality of Patient [x] Person of Na [] Attends Druze of their Na [x] Believes in Prayer [] Reads Bible or Islam materials [] There are Spiritual issues to be addressed Collection Analyst Interventions [x] Prayer [x] Active listening [x] Non-anxious presence [x] Spiritual/emotional support [x] Crisis/trauma care [x] Spiritual counseling [] Bereavement support [] Provided bereavement packet [] Provided Bible/devotional materials [] Provided toy/stuffed animal, coloring book to patient or family member [] Provided Communion [] Anointing/[employer] [] Salvation [x] Completed spiritual assessment [] Other: Impact on Illness or Injury [] Angry [] Fearful [x] Anxious [] Often cries [] Exhaustion [] Unable to work [] Unable to attend congregational [] Unable to walk/stand [] Unable to read [] Unable to drive [x] Unable to eat/drink [] Unable to sleep [] Unable to be with family [] Patient intubated [] Other: Summary unable to communiate well up set almost in tears, she felt better after tahing with her, does know aboiut treatments as of now? Time spent with patient 10 mins
[2020-02-29 12:36] LABS: Sodium 139 mmol/L (136-145)
[2020-02-29] MEDS: LORazepam 2 mg/mL INJ 1 mL 0.5 MG IVP ×3 (13:08→23:52)
--- NOTE | 2020-02-29 13:11 | PC.NURSE ---
patient states she had pills stuck in throat from 929, patient states she feels her throat is closing. technical document writer notified Dr Carlisle of change in condition.
--- NOTE | 2020-02-29 13:21 | PC.NURSE ---
patient refuses any oral intake at this time. patient refuses pain medication.
[2020-02-29 15:44] LABS: Rapid Strep A Test Negative (Negative)
[2020-02-29 16:50] LABS: Anion Gap 17.6 (5-19); Blood Urea Nitrogen 5 mg/dL (6-20); Calcium 8.9 mg/dL (8.5-10.5); Carbon Dioxide 22 mmol/L (22-29); Chloride 102 mmol/L (98-107); Glomerular Filtration Rate 102.7 mL/min (90-130); Glucose 90 mg/dL (65-115); Osmolality Calculated 281 mOsm/kg (285-295); Potassium 3.6 mmol/L (3.5-5.1); Sodium 138 mmol/L (136-145)
--- NOTE | 2020-02-29 17:15 | PM.PN ---
Subjective Subjective: Interval history: This morning she is feeling anxious, feels like she had swallowed her pills this morning, however, feels they did not completely progress to her stomach. She did subsequently have lunch without any issues, but still does feels the sensation that pills in her throat had progressed down to the base of her neck, but were still there. She states that previously she did not have any anaphylactic reactions to medications, recently had a reaction to albuterol which made her have nausea and vomiting last week. She reports feeling hot, at the same time having shaking/tremors/rigors in her arms and legs, although does not feel a chill. Was having this this morning. Reports at home was having a fever, although cannot exactly say how high. She says that she had previously called into the hospital stating that her temperature was 108 something, however, was told that could not survive with a temperature of like that, and now thinks that maybe it was 100.8, or 101.8. She says that then sometimes her temperature would be low. 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 She gets more emotional as she describes these events, although does redirect successfully. She appears very anxious. During the conversation she appears to calm down somewhat, and when her mind gets distracted does stop having the tremor, sugar, and they also intermittently slow down in amplitude. There is no focality to these findings. She denies having this issue in the past. She does complain of sore throat. She also has been having a cough, and has been tested for COVID-19 twice, both times with negative results. She does complain of sore throat. Vitals/I&O/Wt Last Vital Signs Temp 99.0 F 02/29/20 15:45 Pulse 74 02/29/20 15:45 Resp 16 02/29/20 15:45 BP 126/75 02/29/20 15:45 Pulse Ox 93 02/29/20 15:45 02/29/20 02/29/20 02/29/20 06:59 14:59 22:59 Intake Total 1000 / 1000 1420 / 1420 Balance 1000 / 1000 1420 / 1420 Weight last 48 hrs Weight 77.111 kg Physical Exam Narrative: EXAM NARRATIVE: Anxious. Tremulous. Const: COMMON NORMALS: no apparent distress and oriented x3 HENMT: TEETH & GINGIVA: Yes other (Erythema of pharynx, hypopharynx) Neck/C-Spine: COMMON NORMALS: no JVD Resp: COMMON NORMALS: normal respiratory effort AUSCULTATION: wheezes (mild) Cardio: COMMON NORMALS: no JVD, regular rhythm, S1 normal heart sound, S2 normal heart sound and no murmurs RHYTHM: regular rhythm HEART SOUNDS: S1 normal and S2 normal GI: COMMON NORMALS: normal to inspection, nondistended, normoactive bowel sounds, soft to palpation and non-tender PALPATION: Yes soft Extremity: COMMON NORMALS: no joint enlargement and no pedal edema Neuro: COMMON NORMALS: oriented x3 and moves all extremities OTHER: She is extremely very anxious, but cooperates, answers questions, follows commands. Tremulous at rest, which appears to stop if she gets distracted, given accounts of her prior history, although these tend to make her more emotional. She does not appear to have focal abnormality. She describes feeling hot. At the same time she has no rigidity. When she calm somewhat with conversation, no rigidity or clonus is present. Intermittently develops upper and lower bilateral symmetric tremor, variable in amplitude. Skin: COMMON NORMALS: no rashes or lesions noted GENERAL SKIN EXAM: no rashes or lesions noted Urinary Catheter Management^: Colmenares: Cath Placed During This Visit: yes Reason for Continuing Indwelling Catheter: Accurate Measurement of Urinary Output in Critically Ill Patients Urinary Catheter Date of Insertion: 02/29/20 Urinary Catheter Time of Insertion: 03:15 Data : 02/29/20 01:05 02/29/20 16:07 A&P Assessment and plan (1) Altered mental status: Very anxious this morning, with tremor, and subjectively she was stating may be feeling like her muscles are tightening, although on examination absolutely no rigidity, no clonus. Tremors appear to come and go, and appeared correlated with worsening when she becomes more emotional. I suspect that this may be an anxiety attack, possibly I may be concerned about withdrawal. Home medications list that she takes 10 mg diazepam 4 times daily, and so benzodiazepine withdrawal would be high on my differential. Cannot entirely rule out, but I would be less concerned regarding some toxicity from her antidepressant medication with duloxetine, citalopram. Although without rigidity, clonus, she is afebrile as well, would consider something like serotonin syndrome less likely. At the same time will decrease dose of SSRI, monitor. Tremulousness was reported on the way up to the floor this morning. Ativan as needed for symptoms of anxiety and concern for withdrawal. She was having some tingling sensation on her face, and was complaining of pills getting stuck in her throat, slow on progress down. At the same time after taking the pill she had an uneventful lunch, and has kept the food down. I suspect she may be having some pill esophagitis, or irritation secondary to pharyngitis. Her hypopharynx appears erythematous, although I do not see purulence. She is complaining about some soreness under the tongue, and does appear to have several aphthous ulcers there. There is no tongue swelling, throat swelling, or other indication that she is having anaphylactic reaction to azithromycin or Lovenox which she got this morning. There is mild wheezing on exam associated with her bronchitis. Blood pressure stable, she is not tachycardic. She responded well to Ativan. Will check rapid strep, which possibly could be because of her reported fever at home, chills here, although realizing that after course of antibiotics high likelihood test may be negative. She should have some coverage for this from azithromycin. She has been on prednisone, and acute encephalopathy secondary to steroid may be considered as well. She had a fairly quick rise in sodium, and so normal saline was discontinued, however, after initial rise this has plateaued, and decrease slightly down to 138. Hold off any additional IV fluids. Status: Acute Qualifiers: Altered mental status type: unspecified Qualified Code(s): R41.82 - Altered mental status, unspecified (2) Pharyngitis: As above. With dysphagia. In addition symptomatic phenaseptic septic spray. Change to liquid diet. She has been on inhaled steroid, and it appears possibly prednisone, (her will call with her medications), so concerned may be for candidal esophagitis as well. We will add nystatin swish and swallow. We will check Monospot. EBV. HIV. Status: Acute (3) Acute dehydration: Status: Acute (4) Hyponatremia: After IV hydration sodium andreea up to 139 fairly rapidly. Discontinued normal saline. On recheck stable. Slight decrease to 138 subsequently. Hold off any additional IV fluids at this time. Status: Acute (5) Metabolic encephalopathy: Status: Acute (6) Adverse effects of medication: Status: Acute Qualifiers: Encounter type: initial encounter Qualified Code(s): T50.900V - Adverse effect of unspecified drugs, medicaments and biological substances, initial encounter (7) Bizarre behavior: Status: Acute Additional A&P Information Fibromyalgia: Patient is complaining of hurting all over: Check CK. Subacute bronchitis. Nonproductive cough, chest x-ray showing hyperinflated lungs without acute remarkable findings. Azithromycin. Levalbuterol as needed as reports having some nausea from albuterol. Low suspicion for COVID-19 as she has been tested twice, and both times negative. Still unidentified cause of bronchitis, not well responding to treatment with outpatient antibiotic. Possible other viral bronchitis, pharyngitis, and with constellation of other above symptoms. For now will maintain under droplet isolation. Leukocytosis Attestations Medical Necessity Statement*: Continue admission for assessment of management of acute mental status changes, suspected medication withdrawal, medication adverse reaction, hyponatremia, pharyngitis and dysphagia, and bronchitis. Coding Level of Care Code Acute Montessori Toddler Teacher for [facility] Diagnoses Altered mental status R41.82 Altered mental status type: unspecified Pharyngitis J02.9 Acute dehydration E86.0 Hyponatremia E87.1 Metabolic encephalopathy G93.41 Adverse effects of medication T50.908I Encounter type: initial encounter Bizarre behavior R46.2
[2020-02-29] MEDS: phenol oral Spray 177 mL 3 SPRAY MUCOUS MEM (17:31)
--- NOTE | 2020-02-29 17:44 | PC.NURSE ---
patient's is going to call with med list. health technical writer notified Dr Carlisle
[2020-02-29 20:40] LABS: Creatine Phosphokinase 116 U/L (26-192)
[2020-02-29] MEDS: nystatin 100,000 unit/mL UDC 5 mL 400000 UNIT PO (20:51)
[2020-02-29 21:15] LABS: Monoscreen Negative (Negative)
[2020-02-29 21:36] LABS: HIV 1 & 2 Antibody Non-Reactive (Non-Reactiv); HIV 1 & 2 Antigen Non-Reactive (Non-Reactiv)
[2020-02-29] MEDS: levalbuterol 0.63 mg/3 mL Neb INHALATION (22:28)
[2020-03-01] VITALS (9 sets, daily range): BP systolic 114–144; BP diastolic 73–85; PULSE 69–80; RESP 16–22; TEMP 36.7–37; O2SAT 91–99
[2020-03-01 05:31] LABS: Basophils % 0.2 %; Eosinophils # 0.2 10^3/uL (0.0-0.8); Eosinophils % 2.3 %; Hematocrit 38.7 % (37.0-47.0); Lymphocytes # 2.1 10^3/uL (0.8-4.8); Lymphocytes % 21.8 %; Mean Corpuscular Hemoglobin 28.6 pg (28.0-34.0); Mean Corpuscular Volume 92.4 fL (81-99); Mean Platelet Volume 9.8 fL (7.4-10.4); Monocytes # 0.7 10^3/uL (0.2-0.9); Monocytes % 7.1 %; Neutrophils # 6.5 10^3/uL (1.8-7.7); Neutrophils % 68.4 %; Nucleated Red Blood Cells % 0 %; Platelet Count 278 10^3/cmm (130-400); Red Blood Count 4.19 10^6/uL (4.1-5.3); White Blood Count 9.5 10^3/uL (4.0-10.0)
[2020-03-01 05:51] LABS: Alanine Aminotransferase 14 U/L (0-33); Albumin Level 3.5 g/dL (3.5-5.2); Alkaline Phosphatase 87 IU/L (35-105); Anion Gap 15.3 (5-19); Aspartate Amino Transferase 19 U/L (0-32); Blood Urea Nitrogen 3 mg/dL (6-20); Calcium 8.8 mg/dL (8.5-10.5); Carbon Dioxide 24 mmol/L (22-29); Chloride 104 mmol/L (98-107); Globulin 2.4 g/dL (1.3-4.6); Glomerular Filtration Rate 126.7 mL/min (90-130); Glucose 97 mg/dL (65-115); Osmolality Calculated 286 mOsm/kg (285-295); Potassium 3.3 mmol/L (3.5-5.1); Sodium 140 mmol/L (136-145); Total Bilirubin 0.3 mg/dL (0.15-1.2); Total Protein 5.9 g/dL (6.6-8.7)
[2020-03-01] MEDS: azithromycin 250 mg Tablet 500 MG PO (09:05)
[2020-03-01] MEDS: nystatin 100,000 unit/mL UDC 5 mL 400000 UNIT PO ×4 (09:06→21:17)
--- NOTE | 2020-03-01 10:08 | PC.CHAP ---
Pastoral Care Encounter/Spiritual Assessment Type of Contact [] Declined sinker winder visit [] Patient/Family/Request visit [] Outpatient visit [] Follow-up visit [] Physician referral [] Code/Alert [x] Routine visit [] Staff referral [] Actively dying [] Patient sleeping [] Family support [] [] Out of room [] Palliative care [] [] Receiving care in room [] Pre-surgical visit [] Trauma [] Long length of stay [] ICU visit [] Other: Relational/Emotional Strength [] Patient feels connected with others/family/visitors/staff [] Distress [] Loneliness/isolation [] Abandonment Spirituality of Patient [x] Person of Na [] Attends Sabianist of their Na [x] Believes in Prayer [] Reads Bible or Yarsani materials [] There are Spiritual issues to be addressed Design Printing Machine Set Up Operator Interventions [x] Prayer [] Active listening [] Non-anxious presence [] Spiritual/emotional support [] Crisis/trauma care [] Spiritual counseling [] Bereavement support [] Provided bereavement packet [] Provided Bible/devotional materials [] Provided toy/stuffed animal, coloring book to patient or family member [] Provided Communion [] Anointing/[place] [] Salvation [x] Completed spiritual assessment [] Other: Impact on Illness or Injury [] Angry [x] Fearful [x] Anxious [] Often cries [] Exhaustion [] Unable to work [] Unable to attend episcopalian [] Unable to walk/stand [] Unable to read [] Unable to drive [] Unable to eat/drink [] Unable to sleep [] Unable to be with family [] Patient intubated [] Other: Summary Patient has difficulty remembering. Patient is afraid she is not being told what is wrong with her. Vasyl stressed na, and understanding in all things. Time spent with patient 15 min
--- NOTE | 2020-03-01 15:02 | PC.NURSE ---
Patient's mother Bety Rawls called to check on patient, she was not on the list to disclose information to. Patient was asked to see if it were okay if we speak with her mother, pt approved and mother updated.
[2020-03-01 15:06] LABS: Osmolality Serum 256 mOsm/kg (278-305)
--- NOTE | 2020-03-01 21:59 | PM.PN ---
Subjective Subjective: Interval history: She is feeling better today. Tremors have resolved in her lower extremities. Still feels like muscles and upper extremities are spasming a little bit. The feeling of pill stuck in her throat has passed. Sore throat has improved, responding well to spray medication. Reports she has stopped taking her Valium for several days prior to admission after instructed to do so while taking newly prescribed medications. Vitals/I&O/Wt Last Vital Signs Temp 98.1 F 03/01/20 19:23 Pulse 80 03/01/20 20:22 Resp 16 03/01/20 20:22 BP 136/83 03/01/20 19:23 Pulse Ox 97 03/01/20 20:22 03/01/20 03/01/20 03/01/20 06:59 14:59 22:59 Intake Total 120 / 2740 80 / 80 1120 / 1200 Output Total 575 / 1900 1250 / 1250 Balance -455 / 840 80 / 80 -130 / -50 Weight last 48 hrs Weight 77.111 kg Physical Exam Narrative: EXAM NARRATIVE: Anxious, but less so today. Tremors have resolved. Const: COMMON NORMALS: no apparent distress and oriented x3 HENMT: TEETH & GINGIVA: Yes other (Erythema of pharynx, hypopharynx) Neck/C-Spine: COMMON NORMALS: no JVD Resp: COMMON NORMALS: normal respiratory effort AUSCULTATION: wheezes (mild) Cardio: COMMON NORMALS: no JVD, regular rhythm, S1 normal heart sound, S2 normal heart sound and no murmurs RHYTHM: regular rhythm HEART SOUNDS: S1 normal and S2 normal GI: COMMON NORMALS: normal to inspection, nondistended, normoactive bowel sounds, soft to palpation and non-tender PALPATION: Yes soft Extremity: COMMON NORMALS: no joint enlargement and no pedal edema Neuro: COMMON NORMALS: oriented x3 and moves all extremities OTHER: Anxious, but much less so today no tremors. No rigidity, although has subjectively been feeling some muscle spasms. Skin: COMMON NORMALS: no rashes or lesions noted GENERAL SKIN EXAM: no rashes or lesions noted Urinary Catheter Management^: Colmenares: Cath Placed During This Visit: yes Reason for Continuing Indwelling Catheter: Not indwelling catheter Urinary Catheter Date of Insertion: 02/29/20 Urinary Catheter Time of Insertion: 03:15 Data : 03/01/20 05:23 03/01/20 05:23 A&P Assessment and plan (1) Altered mental status: Suspected withdrawal from benzodiazepines as she had discontinued taking diazepam, previously taking 3-4 tablets of 10 mg diazepam in a day. Symptoms have improved with intermittent IV Ativan administration. Will resume lower dose diazepam at 5 mg 3 times daily for now. Monitor. Status: Acute Qualifiers: Altered mental status type: unspecified Qualified Code(s): R41.82 - Altered mental status, unspecified (2) Pharyngitis: Rapid strep negative, although may be negative due to recent antibiotic administration. Continue azithromycin for now which should provide coverage alongside for bronchitis, although rapid strep considered less likely. Dysphagia improved. In addition symptomatic phenaseptic septic spray. Liquid diet. Continue nystatin swish and swallow. Less erythema today. Monospot negative. EBV. HIV negative. Status: Acute (3) Acute dehydration: Status: Acute (4) Hyponatremia: Sodium appears relatively stable, without further decreases. Status: Acute (5) Metabolic encephalopathy: Status: Acute (6) Adverse effects of medication: Status: Acute Qualifiers: Encounter type: initial encounter Qualified Code(s): T50.905A - Adverse effect of unspecified drugs, medicaments and biological substances, initial encounter (7) Bizarre behavior: Status: Acute Additional A&P Information Fibromyalgia: Patient is complaining of hurting all over: Check CK. Subacute bronchitis. Nonproductive cough, chest x-ray showing hyperinflated lungs without acute remarkable findings. Azithromycin. Levalbuterol as needed as reports having some nausea from albuterol. Low suspicion for COVID-19 as she has been tested twice, and both times negative. Still unidentified cause of bronchitis, not well responding to treatment with outpatient antibiotic. Possible other viral bronchitis, pharyngitis, and with constellation of other above symptoms. For now will maintain under droplet isolation. Leukocytosis Attestations Medical Necessity Statement*: Continue hospitalization for assessment of management of benzodiazepine withdrawal. 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
[2020-03-02] VITALS (10 sets, daily range): BP systolic 107–152; BP diastolic 68–89; PULSE 61–83; RESP 16–22; TEMP 36.5–37.2; O2SAT 95–99
[2020-03-02] MEDS: diazePAM 5 mg Tablet PO ×4 (00:21→20:20)
[2020-03-02] MEDS: acetaminophen 325 mg Tablet 650 MG PO ×3 (00:21→20:48)
[2020-03-02] MEDS: LORazepam 2 mg/mL INJ 1 mL 0.5 MG IVP (04:42)
[2020-03-02 05:26] LABS: Basophils % 0.2 %; Eosinophils # 0.3 10^3/uL (0.0-0.8); Hematocrit 39.9 % (37.0-47.0); Hemoglobin 12.5 g/dL (11.5-15.3); Lymphocytes # 2.5 10^3/uL (0.8-4.8); Lymphocytes % 27.9 %; Mean Corpuscular HGB Conc 31.3 g/dL (30.0-36.0); Mean Corpuscular Hemoglobin 28.5 pg (28.0-34.0); Mean Corpuscular Volume 90.9 fL (81-99); Mean Platelet Volume 10.3 fL (7.4-10.4); Monocytes # 0.8 10^3/uL (0.2-0.9); Neutrophils # 5.4 10^3/uL (1.8-7.7); Neutrophils % 59.7 %; Nucleated Red Blood Cells % 0 %; Platelet Count 287 10^3/cmm (130-400); Red Blood Count 4.39 10^6/uL (4.1-5.3); Red Cell Distribution Width 13.9 % (12.1-15.1); White Blood Count 9.1 10^3/uL (4.0-10.0)
[2020-03-02 05:42] LABS: Alanine Aminotransferase 13 U/L (0-33); Albumin Level 3.6 g/dL (3.5-5.2); Alkaline Phosphatase 84 IU/L (35-105); Anion Gap 12.6 (5-19); Aspartate Amino Transferase 17 U/L (0-32); Blood Urea Nitrogen 2 mg/dL (6-20); Calcium 8.9 mg/dL (8.5-10.5); Carbon Dioxide 28 mmol/L (22-29); Chloride 106 mmol/L (98-107); Globulin 2.2 g/dL (1.3-4.6); Glomerular Filtration Rate 102.7 mL/min (90-130); Glucose 95 mg/dL (65-115); Osmolality Calculated 291 mOsm/kg (285-295); Potassium 3.6 mmol/L (3.5-5.1); Sodium 143 mmol/L (136-145); Total Bilirubin 0.3 mg/dL (0.15-1.2); Total Protein 5.8 g/dL (6.6-8.7)
[2020-03-02] MEDS: azithromycin 250 mg Tablet 500 MG PO (08:22)
--- NOTE | 2020-03-02 10:08 | PC.NURSE ---
Patient unable to follow simple commands, ask her to touch her nose with her finger, unable to perform, even with eyes open. Ask patient to close right eyes, open the left. Patient unable to perform. ask patient to follow pen light with her eyes, without moving her head. Patient unable to perform. Patients unable to follow commands to squeeze my hand to check for packing checker strength. Patient unable to perform red heel exercise. Patient could wiggle toes. Patient asked her [place], [place] [facility] [place] Ask her what day, date, or month, patient was not able to answer. Speech slurred, speaking in coherently at times. Patient offered a bath, and she refused. Assisted patient with tray setup for breakfast. Patient was eating jello without spoon, smashing the container to her face, refusing to use a spoon. Reported concerns to charge nurse.
--- NOTE | 2020-03-02 10:37 | PC.CHAP ---
Pastoral Care Encounter/Spiritual Assessment Type of Contact [x] Declined penetration tester visit [] Patient/Family/Request visit [] Outpatient visit [] Follow-up visit [] Physician referral [] Code/Alert [] Routine visit [] Staff referral [] Actively dying [] Patient sleeping [] Family support [] [] Out of room [] Palliative care [] [] Receiving care in room [] Pre-surgical visit [] Trauma [] Long length of stay [] ICU visit [] Other: Relational/Emotional Strength [] Patient feels connected with others/family/visitors/staff [] Distress [] Loneliness/isolation [] Abandonment Spirituality of Patient [] Person of Na [] Attends Holiness of their Na [] Believes in Prayer [] Reads Bible or Methodist materials [] There are Spiritual issues to be addressed Roofing Superintendent Interventions [] Prayer [] Active listening [] Non-anxious presence [] Spiritual/emotional support [] Crisis/trauma care [] Spiritual counseling [] Bereavement support [] Provided bereavement packet [] Provided Bible/devotional materials [] Provided toy/stuffed animal, coloring book to patient or family member [] Provided Communion [] Anointing/[place] [] Salvation [] Completed spiritual assessment [] Other: Impact on Illness or Injury [] Angry [] Fearful [] Anxious [] Often cries [] Exhaustion [] Unable to work [] Unable to attend methodist [] Unable to walk/stand [] Unable to read [] Unable to drive [] Unable to eat/drink [] Unable to sleep [] Unable to be with family [] Patient intubated [] Other: Summary Time spent with patient
--- NOTE | 2020-03-02 10:39 | PC.NURSE ---
pt concerned for patient, wants to speak to physician. pt has family who works for [employer] who have also voiced concerns and would like to be present for physician rounds. This was approved through Dr. Carlisle. I spoke with Michael who was in agreeance with the plan. Dr. Carlisle also spoke with patient over the phone.
[2020-03-02] MEDS: nystatin 100,000 unit/mL UDC 5 mL 400000 UNIT PO ×2 (10:54→20:20)
--- NOTE | 2020-03-02 11:32 | MR_ITS ---
WS: [id number] MRI BRAIN WITH AND WITHOUT CONTRAST HISTORY: difficulty with speech, confusion COMPARISON: None available. TECHNIQUE: Multiplanar imaging performed through the brain with Prohance 17 ml's IV. Very tiny diffusion-weighted infarcts noted in the cortex of the RIGHT frontoparietal region. Area of increased T2 signal in the inferior RIGHT parietal lobe. There is no enhancement or diffusion-weight ed abnormality. Favor this is probably from a remote infarct. No hemorrhage. No susceptibility artifacts or prior lacunar infarcts. Ventricles and extra-axial spaces are normal. Clivus and pituitary gland are normal. Postcontrast images are negative for masses or vascular malformations. Fenestration basilar artery. Dural venous sinuses are normal. Paranasal sinuses: Well aerated with no significant disease. Mastoid air cells: Normal. Calvarium and scalp: Normal. MR/MR head wo/w con [id number] IMPRESSION: 1. Tiny acute lacunar infarct cortex RIGHT frontoparietal region. 2. Remote infarct inferior RIGHT cerebellum. 3. No enhancing masses. 4. Quality the study is slightly limited by motion.
--- NOTE | 2020-03-02 14:56 | PC.NURSE ---
Patient tolerated her diet/lunch well. Patient became agitated while tray was being picked up. She wanted to keep the plastic lids and trash on her tray. Patient tried to explain why she wanted them, but struggled to find her words. Patient given Valium. She said she was shaking on the inside. Patient to have MRI at 1500 today. Family notified.
--- NOTE | 2020-03-02 15:42 | PC.NURSE ---
Transport team with patient to transfer patient to [facility] for MRI. Patient needed max assist to transfer times 2, to stretcher. Patient was incontinent of stool. Has large amount of stool.
--- NOTE | 2020-03-02 19:49 | P.PN_ITS ---
Subjective Subjective: Interval history: Today she is noted with slowed/delayed responses, taking her a while to collect her thoughts, produce verbal responses, or follow commands. She has been using her hands more to communicate. Has been somewhat more withdrawn, not as cooperative. When asked to perform different tasks at times stops and refuses to perform them, stating that she cannot. Complaining of some soreness in both feet. Still feeling some tremors. Denies numbness or weakness in any particular extremity. She is very tearful. Not able to express well what is troubling her or causing her sluggishness. Her niece is visiting with her at bedside, whom she recognizes. Vitals/I&O/Wt Last Vital Signs Temp 98.4 F 03/02/20 14:44 Pulse 83 03/02/20 14:44 Resp 20 H 03/02/20 14:44 BP 133/81 03/02/20 14:44 Pulse Ox 99 03/02/20 14:44 03/02/20 03/02/20 03/02/20 06:59 14:59 22:59 Intake Total 480 / 480 360 / 840 Output Total 1400 / 2650 2150 / 2150 350 / 2500 Balance -1400 / -1450 -1670 / -1670 10 / -1660 Physical Exam Narrative: EXAM NARRATIVE: Anxious. Delayed responses. Tearful, not very cooperative. Word finding difficulty, taking her a while to formulate short responses. Const: COMMON NORMALS: oriented x3 Neck/C-Spine: COMMON NORMALS: no JVD Resp: COMMON NORMALS: normal respiratory effort AUSCULTATION: no wheezes Cardio: COMMON NORMALS: no JVD, regular rhythm, S1 normal heart sound, S2 normal heart sound and no murmurs RHYTHM: regular rhythm HEART SOUNDS: S1 normal and S2 normal GI: COMMON NORMALS: normal to inspection, nondistended, normoactive bowel sounds, soft to palpation and non-tender PALPATION: Yes soft Extremity: COMMON NORMALS: no joint enlargement and no pedal edema Neuro: COMMON NORMALS: oriented x3 OTHER: The neurological exam is very difficult today. Definitely has had a change, although timing is unclear, today taking a very long time to formulate even short statements, and I am having very difficult time having her produce commands. She inconsistently participates in exam, and sometimes performs actions, and other times refuses to perform them. Sometimes performs actions when she is distracted by another action, for example stating she cannot open her right eye, but does so when asked to perform other actions. Appears to have some sluggishness in the left arm, although after some encouragement power appears to be symmetrical. No drift is noted in upper or lower extremities. She does eventually follow all commands. Does not have issues with tracking. Visual miller full to confrontation on the left side, although did not participate in exam on the right. Did well on cerebellar functions, although performing actions very slowly. No dysmetria in upper extremities. Noted possibly mild dysmetria in the lower extremities, although she is complaining of some aching in her feet, particularly dorsal right foot, although no erythema, swelling or other changes noted on exam. Sensation appears to be symmetrical and intact, though she gives inconsistent responses. Skin: COMMON NORMALS: no rashes or lesions noted GENERAL SKIN EXAM: no rashes or lesions noted Urinary Catheter Management^: Colmenares: Cath Placed During This Visit: yes Reason for Continuing Indwelling Catheter: Acute Urinary Retention or Obstruction Urinary Catheter Date of Insertion: 02/29/20 Urinary Catheter Time of Insertion: 03:15 Data : 03/02/20 04:52 03/02/20 04:52 Micro: Microbiology 02/29/20 14:44 Group A Streptococcus Rapid Screen - Preliminary Throat A&P Assessment and plan (1) Altered mental status: Today with noted worsening in her responsiveness, worse yesterday was anxious, and still with some altered mental status per family, with some mild tremulousness, mild spasm complaints, today during my visit is very slow to respond, and it takes her a while to formulate even short statements. Inconsistently follows commands. After discussing with her and her family neurological examination is inconsistent, however, they were agreeable for additional assessment by MRI to rule out additional structural etiology contributing to her symptoms in addition to already suspected benzodiazepine withdrawal, possibly encephalopathy due to steroid, perhaps other medication. Appears to have several CVA noted on MRI, and older and a more acute on the right side. Exact timing of onset of symptoms and changes in symptoms cannot be pinpointed, unfortunately. Discussing her today's condition with her he noted similar troubles and expressing herself, waxing and waning, as well as inconsistent movement issues since around Friday. She is started on aspirin, statin. Given lack of clear timing she is not a candidate for intervention. Will evaluate for additional risk factors for CVA. Assess with A1c, continue telemetry, assess carotid Doppler, echo. PT, OT, ST assessment. 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 Significance of whether this relates to her CVA is not clear. No aneurysm is noted on the postcontrast study. Would recommend additional follow-up with neurology in clinic. Suspected withdrawal from benzodiazepines as she had discontinued taking diazepam, previously taking 3-4 tablets of 10 mg diazepam in a day. Supportive care with lorazepam. Restarted on 5 mg diazepam 3 times daily. Monitor for any additional withdrawal symptoms. Discussed with her possible withdrawal yesterday, and she felt indeed that a lot of her symptoms fit this possible diagnosis. Earlier today some medications were removed from her room by nursing staff after worsening in her condition, although it is not clear whether she had taken any of her home medications on her own. Status: Acute Qualifiers: Altered mental status type: unspecified Qualified Code(s): R41.82 - Altered mental status, unspecified (2) Pharyngitis: Rapid strep negative, although may be negative due to recent antibiotic administration. Continue azithromycin for now which should provide coverage alongside for bronchitis, although rapid strep considered less likely. Continue nystatin swish and swallow. Monospot negative. EBV. HIV negative. Status: Acute (3) Acute dehydration: Status: Acute (4) Hyponatremia: Sodium appears relatively stable, without further decreases. Status: Acute (5) Metabolic encephalopathy: Status: Acute (6) Adverse effects of medication: Status: Inactive Qualifiers: Encounter type: initial encounter Qualified Code(s): T50.905A - Adverse effect of unspecified drugs, medicaments and biological substances, initial encounter (7) Bizarre behavior: Status: Acute Additional A&P Information Fibromyalgia: Patient is complaining of hurting all over: Check CK. Subacute bronchitis. Improving. Barely any cough. Wheezing has resolved. Azithromycin. Levalbuterol as needed as reports having some nausea from albuterol. Low suspicion for COVID-19 as she has been tested twice, and both times negative. Still unidentified cause of bronchitis, not well responding to treatment with outpatient antibiotic. Possible other viral bronchitis, pharyngitis, and with constellation of other above symptoms. For now will maintain under droplet isolation. Leukocytosis Attestations Medical Necessity Statement*: Morning admission of over 2 midnights for assessment and management of acute encephalopathy, CVA, medication withdrawal. 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
[2020-03-02] MEDS: aspirin 325 mg Tablet PO (20:19)
[2020-03-02] MEDS: atorvastatin 40 mg Tablet PO (20:20)
[2020-03-03] VITALS (8 sets, daily range): BP systolic 104–130; BP diastolic 69–87; PULSE 64–100; RESP 16–20; TEMP 36.4–37.2; O2SAT 92–97
[2020-03-03 03:33] LABS: Estmated Average Glucose 126
[2020-03-03 05:44] LABS: Basophils % 0.3 %; Eosinophils # 0.3 10^3/uL (0.0-0.8); Eosinophils % 2.6 %; Hematocrit 46.1 % (37.0-47.0); Hemoglobin 13.8 g/dL (11.5-15.3); Lymphocytes # 3.2 10^3/uL (0.8-4.8); Lymphocytes % 26.2 %; Mean Corpuscular HGB Conc 29.9 g/dL (30.0-36.0); Mean Corpuscular Hemoglobin 29.7 pg (28.0-34.0); Mean Corpuscular Volume 99.1 fL (81-99); Monocytes # 0.7 10^3/uL (0.2-0.9); Monocytes % 5.9 %; Neutrophils # 7.9 10^3/uL (1.8-7.7); Neutrophils % 64.7 %; Nucleated Red Blood Cells % 0 %; Platelet Count 285 10^3/cmm (130-400); Red Blood Count 4.65 10^6/uL (4.1-5.3); Red Cell Distribution Width 14.5 % (12.1-15.1); White Blood Count 12.3 10^3/uL (4.0-10.0)
[2020-03-03 06:36] LABS: Basophils % 0.3 %; Eosinophils # 0.4 10^3/uL (0.0-0.8); Eosinophils % 3.1 %; Hematocrit 40.8 % (37.0-47.0); Hemoglobin 12.5 g/dL (11.5-15.3); Lymphocytes # 2.9 10^3/uL (0.8-4.8); Lymphocytes % 24.5 %; Mean Corpuscular HGB Conc 30.6 g/dL (30.0-36.0); Mean Corpuscular Hemoglobin 28.7 pg (28.0-34.0); Mean Corpuscular Volume 93.8 fL (81-99); Mean Platelet Volume 10.1 fL (7.4-10.4); Monocytes # 0.8 10^3/uL (0.2-0.9); Monocytes % 6.9 %; Neutrophils # 7.7 10^3/uL (1.8-7.7); Neutrophils % 64.9 %; Nucleated Red Blood Cells % 0 %; Platelet Count 250 10^3/cmm (130-400); Red Blood Count 4.35 10^6/uL (4.1-5.3); Red Cell Distribution Width 13.9 % (12.1-15.1); White Blood Count 11.9 10^3/uL (4.0-10.0)
--- NOTE | 2020-03-03 07:00 | USCV_ITS ---
Alla Woo Age: 60 Gender: F : 1960 Exam Date: 03/03/2020 13:52 Ordering Phys: Quan Carlisle MD Technologist: Aroldo Felder [place] [facility] [place]: CVA BP: 112 / 68 HR: 83 Rhythm: Sinus Technical Quality: Good MEASUREMENTS (Male / Female) Normal Values 2D ECHO LV Diastolic Diameter PLAX 3.5 cm 4.2 - 5.9 / 3.9 - 5.3 cm LV Systolic Diameter PLAX 1.7 cm IVS Diastolic Thickness 0.8 cm 0.6 - 1.0 / 0.6 - 0.9 cm IVS Systolic Thickness 1.0 cm LVPW Diastolic Thickness 0.8 cm 0.6 - 1.0 / 0.6 - 0.9 cm LVPW Systolic Thickness 0.9 cm LVOT Diameter 2.0 cm LV Ejection Fraction 2D Teich 84.1 % LV Ejection Fraction MOD 2C 54.7 % LV Ejection Fraction 2C AL 55.7 % LA Diameter 2.9 cm LA Width 3.3 cm LA Height 4.3 cm RA Width 4.0 cm RA Height 3.5 cm Aorta at Sinotubular Diameter 3.1 cm M-MODE LV Diastolic Diameter MM 3.6 cm 4.2 - 5.9 / 3.9 - 5.3 cm LV Systolic Diameter MM 1.9 cm LV Ejection Fraction MM Teich 79.1 % IVS Diastolic Thickness MM 1.0 cm 0.6 - 1.0 / 0.6 - 0.9 cm IVS Systolic Thickness MM 1.2 cm LVPW Diastolic Thickness MM 0.8 cm 0.6 - 1.0 / 0.6 - 0.9 cm LVPW Systolic Thickness MM 1.2 cm RV Diastolic Diameter MM 1.8 cm Aortic Annulus Diameter 3.1 cm LA Ao Ratio MM 0.9 MV E Point Septal Separation 0.5 cm DOPPLER AV Peak Velocity 134.0 cm/s LVOT Peak Velocity 132.0 cm/s AV Area Cont Eq vti 2.8 cm squared AV Area Cont Eq pk 3.2 cm squared MV Area PHT 5.0 cm squared Mitral E to A Ratio 0.7 MV E' Velocity 10.0 cm/s Mitral E to MV E' Ratio 6.6 Mitral E to LV E' Lateral Ratio 6.4 Mitral E to LV E' Septal Ratio 6.9 TR Peak Velocity 228.0 cm/s TR Peak Gradient 20.7 mmHg TV Peak E Velocity 90.0 cm/s Right Atrial Pressure 3.0 mmHg Pulmonary Artery Systolic Pressu 23.8 mmHg FINDINGS Left Ventricle Normal left ventricular cavity size. Normal left ventricular systolic function. No regional wall motion abnormalities. Left ventricular ejection fraction is estimated at 60 %. Grade I/IV diastolic dysfunction (abnormal relaxation filling pattern), normal to mildly elevated filling pressures. Right Ventricle The right ventricle is normal in size and function. Right Atrium The right atrium is normal in size. Left Atrium The left atrium is normal in size. Mitral Valve Structurally normal mitral valve without significant stenosis or prolapse. There is no mitral regurgitation. Aortic Valve Moderate aortic valve calcification. No aortic valve stenosis. Mild aortic valve regurgitation. Tricuspid Valve Mild tricuspid valve regurgitation. Pulmonic Valve Structurally normal pulmonic valve without significant stenosis. There is no pulmonic regurgitation. Pericardium Normal pericardium without effusion. Aorta Normal ascending aorta dimension. CONCLUSIONS 1-Normal left ventricular cavity size. Normal left ventricular systolic function. No regional wall motion abnormalities. Left ventricular ejection fraction is estimated at 60 %. Grade I/IV diastolic dysfunction (abnormal relaxation filling pattern), normal to mildly elevated filling pressures. 2-Moderate aortic valve calcification. No aortic valve stenosis. Mild aortic valve regurgitation. 3-There is no pericardial effusion. 4-Pulmonary artery systolic pressure is within normal limits. 5-Right atrial pressure is around 5 mm of mercury. 6-There are no prior echocardiogram studies to compare. Yue Ramirez MD (Electronically Signed) Final Date: 03 Mar 2020 16:12 S
--- NOTE | 2020-03-03 07:00 | USCV_ITS ---
Alla Woo Age: 60 Gender: F : 1960 Exam Date: 03/03/2020 14:07 Ordering Phys: Quan Carlisle MD Technologist: Aroldo Felder [place] [facility] [place]: CVA Risk Factors: Previous Vascular Surgery: Right Brachial BP: / Left Brachial BP: / Right Left Velocity (cm/s) Spectral Plaque Velocity (cm/s) Spectral Plaque Syst/Diast Broadening Syst/Diast Broadening 85.20/ 30.20 Prox CCA 67.20 / 21.00 76.00/ 22.90 Mid CCA 73.10 / 23.50 72.40/ 9.20 Distal CCA 70.60 / 25.20 69.60/ 11.40 Prox ICA 62.20 / 18.50 72.40/ 22.70 Mid ICA 73.10 / 22.70 75.60/ 25.20 Distal ICA 80.20 / 32.60 77.90 ECA 66.40 0.89 ICA/CCA 1.10 Antegrade Vertebral Antegrade 58.80/ 25.20 cm/s 38.30/ 11.30 cm/s Tri Subclavian Tri 89.10 86.50 FINDINGS Comparison: none available. No significant elevation of systolic or diastolic velocities. Waveforms are normal. No significant amount of calcified plaque or intimal thickening identified. CONCLUSIONS Normal carotid doppler ultrasound. Dr. Glenda Solomon DO (Electronically Signed) Final Date: 03 Mar 2020 16:16 S
[2020-03-03] MEDS: azithromycin 250 mg Tablet 500 MG PO (07:44)
[2020-03-03] MEDS: citalopram 20 mg Tablet 10 MG PO (07:44)
[2020-03-03] MEDS: aspirin 325 mg Tablet PO (07:44)
[2020-03-03] MEDS: diazePAM 5 mg Tablet PO ×3 (07:45→20:53)
[2020-03-03] MEDS: duloxetine 30 mg Capsule PO (07:59)
[2020-03-03] MEDS: nystatin 100,000 unit/mL UDC 5 mL 400000 UNIT PO ×4 (08:00→20:53)
--- NOTE | 2020-03-03 10:05 | PC.CHAP ---
Pastoral Care Encounter/Spiritual Assessment Type of Contact [] Declined library media specialist visit [] Patient/Family/Request visit [] Outpatient visit [] Follow-up visit [] Physician referral [] Code/Alert [x] Routine visit [] Staff referral [] Actively dying [] Patient sleeping [] Family support [] [] Out of room [] Palliative care [] [] Receiving care in room [] Pre-surgical visit [] Trauma [] Long length of stay [] ICU visit [] Other: Relational/Emotional Strength [] Patient feels connected with others/family/visitors/staff [] Distress [] Loneliness/isolation [] Abandonment Spirituality of Patient [] Person of Na [] Attends Shinto of their Na [x] Believes in Prayer [] Reads Bible or Muslim materials [] There are Spiritual issues to be addressed 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 Interventions [x Prayer [] Active listening [] Non-anxious presence [] Spiritual/emotional support [] Crisis/trauma care [] Spiritual counseling [] Bereavement support [] Provided bereavement packet [x] Provided Bible/devotional materials [] Provided toy/stuffed animal, coloring book to patient or family member [] Provided Communion [] Anointing/[place] [] Salvation [x] Completed spiritual assessment [] Other: Impact on Illness or Injury [] Angry [] Fearful [] Anxious [] Often cries [] Exhaustion [] Unable to work [] Unable to attend buddhist [] Unable to walk/stand [] Unable to read [] Unable to drive [] Unable to eat/drink [] Unable to sleep [] Unable to be with family [] Patient intubated [] Other [place] met this patient Friday. This visit she doesn't speak, understands conversation. Provided her with color book and colors to pass her time. Time spent with patient 20min
--- NOTE | 2020-03-03 14:00 | XRR_ITS ---
PROCEDURE INFORMATION: Exam: XR Chest, 1 View Exam date and time: 03/03/2020 2:40 PM Age: 60 years old Clinical indication: Other: Leukocytosis TECHNIQUE: Imaging protocol: XR of the chest Views: 1 view. COMPARISON: CR XR chest 1V portable [id number] 02/29/2020 1:58 AM FINDINGS: Lungs: There is no pulmonary vascular congestion. There is no evidence of focal parenchymal consolidation. Pleural space: There are no pleural effusions. There is no evidence of pneumothorax. Heart/Mediastinum: The cardiac silhouette is within normal limits. Bones/joints: No acute osseous abnormality is identified. XR/XR chest 1V portable [id number] IMPRESSION: No acute cardiopulmonary disease identified.
[2020-03-03 15:01] LABS: EBV IGM TEST <36.00 U/mL
--- NOTE | 2020-03-03 17:42 | PC.NURSE ---
passing pt room metallurgical technician stopped me to tell me that the pt had pulled out her tabor.saw pt bent over side of bed with tabor in hand. nurse notified
--- NOTE | 2020-03-03 18:32 | PC.NURSE ---
PT ROUNDING 1515 PROPERTY COORDINATOR REPORTED TO NURSE THAT PT PULLED OUT SCHULTZ CATHETER. NURSE CHECKED ON PT. PT NOTED TO HAVE SMALL AMOUNT OF ON BLOOD ON MEATUS. NURSE CLEANED PT UP AND ASKED PT WHAT HAPPENED. PT SAID, IT FELL OUT. NURSE ASKED PT IF SHE HAD ANY PAIN. PT REPLIED, NO, I DON'T HAVE ANY PAIN, BUT IT DOES HURT. NURSE NOTIFIED DR. ELISE. WILL CONTINUE TO MONITOR.
--- NOTE | 2020-03-03 18:48 | PC.NURSE ---
pt voided in bed post tabor removal. nurse notified
[2020-03-03] MEDS: atorvastatin 40 mg Tablet PO (20:53)
--- NOTE | 2020-03-03 21:38 | PM.PN ---
Subjective Subjective: Interval history: Today she is doing slightly better. She states were as before if things were as bad as 1000% , currently they are down to 10% . She does overall appear to have less trouble with speech fluency today. Certainly a lot less sluggish. Sluggishness in movements appears to fluctuate depending on how much attention she is being to what she is doing. Vitals/I&O/Wt Last Vital Signs Temp 99 F 03/03/20 20:00 Pulse 76 03/03/20 20:51 Resp 18 03/03/20 20:51 BP 121/82 03/03/20 20:00 Pulse Ox 96 03/03/20 20:51 03/03/20 03/03/20 03/03/20 06:59 14:59 22:59 Output Total 1450 / 3950 200 / 200 Balance -1450 / -3110 -200 / -200 Physical Exam Narrative: EXAM NARRATIVE: Today she is less anxious, in better spirits. Cooperative. Much more alert and responsive. Const: COMMON NORMALS: oriented x3 Neck/C-Spine: COMMON NORMALS: no JVD Resp: COMMON NORMALS: normal respiratory effort AUSCULTATION: no wheezes Cardio: COMMON NORMALS: no JVD, regular rhythm, S1 normal heart sound, S2 normal heart sound and no murmurs RHYTHM: regular rhythm HEART SOUNDS: S1 normal and S2 normal GI: COMMON NORMALS: normal to inspection, nondistended, normoactive bowel sounds, soft to palpation and non-tender PALPATION: Yes soft Extremity: COMMON NORMALS: no joint enlargement and no pedal edema Neuro: COMMON NORMALS: oriented x3 OTHER: Still complains of intermittent tremors of all muscles, which she complains are also sore. Intermittently having tremors which do appear like conscious shivering and which appears like she is able to stop volitionally. Again no rigidity noted on exam, no clonus. Sensation is symmetrical. She does not have any pronator drift. Has very good power while at rest, although does say she gets easily fatigued. Visual miller are full to confrontation. She is tracking well. No nystagmus. Follows commands very well. Does perfectly on FNF without any dysmetria. Today very mild a aphasia noted. No dysarthria. Skin: COMMON NORMALS: no rashes or lesions noted GENERAL SKIN EXAM: no rashes or lesions noted Urinary Catheter Management^: Colmenares: Cath Placed During This Visit: yes, but has since been removed by the nurse Reason for Continuing Indwelling Catheter: Not indwelling catheter Urinary Catheter Date of Insertion: 02/29/20 Urinary Catheter Time of Insertion: 03:15 Date Urinary Catheter Removed: 03/03/20 Time Urinary Catheter Discontinued: 16:40 Data : 03/03/20 06:26 03/02/20 04:52 Micro: Microbiology 02/29/20 14:44 Group A Streptococcus Rapid Screen - Final Throat A&P Assessment and plan (1) Altered mental status: Today with improvement, much more interactive, less sluggish in responses, movements. Much more fluency in speech, and in fact before I walked in fluently speaking with echocardiogram tech, although I note mild aphasia during my visit. Still complains of intermittent tremor, and sometimes appears to be having some shivers, although these appear somewhat volitional. There is no rigidity, no clonus, and serotonin syndrome is not suspected. 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 Pending carotid Doppler, echocardiogram, continuous monitoring on telemetry. Aspirin, statin. Will evaluate for additional risk factors for CVA. Assess with A1c, continue telemetry, assess carotid Doppler, echo. PT, OT, ST assessment. 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 Significance of whether this relates to her CVA is not clear. No aneurysm is noted on the postcontrast study. Would recommend additional follow-up with neurology in clinic. Suspected withdrawal from benzodiazepines as she had discontinued taking diazepam, previously taking 3-4 tablets of 10 mg diazepam in a day. Supportive care with lorazepam. Restarted on 5 mg diazepam 3 times daily. Monitor for any additional withdrawal symptoms. Discussed with her possible withdrawal yesterday, and she felt indeed that a lot of her symptoms fit this possible diagnosis. Earlier today some medications were removed from her room by nursing staff after worsening in her condition, although it is not clear whether she had taken any of her home medications on her own. Given her overall deconditioning, recovering from acute encephalopathy, functional decline she would benefit from rehabilitation prior to return home. Appreciate discharge planning assistance with arrangements she and are agreeable. Status: Acute Qualifiers: Altered mental status type: unspecified Qualified Code(s): R41.82 - Altered mental status, unspecified (2) Pharyngitis: Rapid strep negative, although may be negative due to recent antibiotic administration. Continue azithromycin for now which should provide coverage alongside for bronchitis, although rapid strep considered less likely. Continue nystatin swish and swallow. Monospot negative. EBV serologies suggestive of past infection. HIV negative. Status: Acute (3) Acute dehydration: Improved. Status: Acute (4) Hyponatremia: Sodium appears relatively stable, without further decreases. Status: Acute (5) Metabolic encephalopathy: Status: Acute (6) Adverse effects of medication: Status: Inactive Qualifiers: Encounter type: initial encounter Qualified Code(s): T50.905A - Adverse effect of unspecified drugs, medicaments and biological substances, initial encounter (7) Bizarre behavior: Status: Acute Additional A&P Information Fibromyalgia: Patient is complaining of hurting all over: Check CK. Subacute bronchitis. Improving. Barely any cough. Wheezing has resolved. Azithromycin. Levalbuterol as needed as reports having some nausea from albuterol. Low suspicion for COVID-19 as she has been tested twice, and both times negative. Still unidentified cause of bronchitis, not well responding to treatment with outpatient antibiotic. Possible other viral bronchitis, pharyngitis, and with constellation of other above symptoms. For now will maintain under droplet isolation. Leukocytosis: Today there is return of mild leukocytosis. Because of this is not clear. She is afebrile. No tachycardia or other signs of sepsis. Will monitor clinically for development of any suggestion of infection. Attestations Medical Necessity Statement*: Continue admission versus management of acute encephalopathy, CVA. Coding Level of Care Code Acute Mandolin Repair Person for Carlos Rollins Diagnoses Altered mental status R41.82 Altered mental status type: unspecified Pharyngitis J02.9 Acute dehydration E86.0 Hyponatremia E87.1 Metabolic encephalopathy G93.41 Adverse effects of medication T50.906S Encounter type: initial encounter Bizarre behavior R46.2
[2020-03-04] VITALS (9 sets, daily range): BP systolic 92–130; BP diastolic 55–78; PULSE 74–95; RESP 17–18; TEMP 36.7–37.1; O2SAT 93–99
[2020-03-04 06:21] LABS: Basophils % 0.3 %; Eosinophils # 0.3 10^3/uL (0.0-0.8); Eosinophils % 2.9 %; Hematocrit 38.1 % (37.0-47.0); Hemoglobin 11.7 g/dL (11.5-15.3); Lymphocytes % 16.6 %; Mean Corpuscular HGB Conc 30.7 g/dL (30.0-36.0); Mean Corpuscular Hemoglobin 28.3 pg (28.0-34.0); Mean Platelet Volume 9.8 fL (7.4-10.4); Monocytes % 8.1 %; Neutrophils # 8.5 10^3/uL (1.8-7.7); Neutrophils % 71.7 %; Nucleated Red Blood Cells % 0 %; Platelet Count 281 10^3/cmm (130-400); Red Blood Count 4.14 10^6/uL (4.1-5.3); Red Cell Distribution Width 14.3 % (12.1-15.1); White Blood Count 11.8 10^3/uL (4.0-10.0)
[2020-03-04 06:38] LABS: Anion Gap 11.8 (5-19); Blood Urea Nitrogen 14 mg/dL (6-20); Calcium 8.7 mg/dL (8.5-10.5); Carbon Dioxide 30 mmol/L (22-29); Chloride 103 mmol/L (98-107); Glomerular Filtration Rate 102.7 mL/min (90-130); Glucose 116 mg/dL (65-115); Osmolality Calculated 289 mOsm/kg (285-295); Potassium 3.8 mmol/L (3.5-5.1); Sodium 141 mmol/L (136-145)
[2020-03-04] MEDS: levalbuterol 0.63 mg/3 mL Neb INHALATION (07:42)
--- NOTE | 2020-03-04 08:30 | XRR_ITS ---
PROCEDURE INFORMATION: Exam: XR Chest, 1 View Exam date and time: 03/04/2020 10:49 AM Age: 60 years old Clinical indication: Chest pain; Additional info: Assess for pna TECHNIQUE: Imaging protocol: XR of the chest Views: 1 view. COMPARISON: CR XR chest 1V portable [id number] 03/03/2020 5:04 PM FINDINGS: Lungs: Emphysematous change and interstitial prominence. No acute infiltrate. Pleural space: No pleural effusion. Heart/Mediastinum: Normal configuration of the heart. Bones/joints: Mild degenerative change. When correlating with the previous study, no significant interval changes are present. XR/XR chest 1V portable [id number] IMPRESSION: Emphysematous change and interstitial prominence.
[2020-03-04] MEDS: azithromycin 250 mg Tablet 500 MG PO (09:11)
[2020-03-04] MEDS: citalopram 20 mg Tablet 10 MG PO (09:11)
[2020-03-04] MEDS: aspirin 325 mg Tablet PO (09:12)
[2020-03-04] MEDS: diazePAM 5 mg Tablet PO ×3 (09:12→22:31)
[2020-03-04] MEDS: dextrose 5% 1,000 ML 30 ML IV (09:16)
[2020-03-04] MEDS: nystatin 100,000 unit/mL UDC 5 mL 400000 UNIT PO ×4 (09:27→22:31)
[2020-03-04 13:17] LABS: Add Urine Microscopic? NO
[2020-03-04 13:24] LABS: Bilirubin Urine Neg (NEGATIVE); Blood Urine Neg (Negative); Glucose Urine UA Norm (Normal); Ketones Urine Negative (Negative); Leukocyte Esterase Urine Negative (Negative); Nitrate Urine Negative (Negative); Protein Urine Neg (Negative); Sulfosalicylic Acid Urine Negative (Negative); Urine Appearance Clear (CLEAR); Urine Color Yellow (Yellow); Urobilinogen Urine Norm (Negative); pH Urine 8 (5-7)
[2020-03-04] MEDS: acetaminophen 325 mg Tablet 650 MG PO (14:36)
--- NOTE | 2020-03-04 19:36 | P.PN_ITS ---
Subjective Subjective: Interval history: States that still having muscle aches, occasional shivers. Experience shivering episode during my presence, closes her eyes, and begins having a tremor, holding out her index finger up here to pause during conversation. During episode I asked her whether she is having a shaver, and she nods yes . After about 30 seconds 3 opens her eyes, and we continue with the conversation. Subjectively she feels she has been coughing up some phlegm, and has coughed multiple times during my visit. She states that she feels warm as if she is running a fever. States that has not been agreeable with the temperature measurements feeling that they should be higher than they are when they are read as normal. Vitals/I&O/Wt Last Vital Signs Temp 98.0 F 03/04/20 15:43 Pulse 82 03/04/20 15:43 Resp 18 03/04/20 15:43 BP 103/65 03/04/20 15:43 Pulse Ox 98 03/04/20 15:43 03/04/20 03/04/20 03/04/20 06:59 14:59 22:59 Intake Total 1440 / 1440 1080 / 2520 Output Total 350 / 550 600 / 600 600 / 1200 Balance -350 / -550 840 / 840 480 / 1320 Physical Exam Narrative: EXAM NARRATIVE: Today similar to yesterday. Speech is more fluent, with occasional episode of a aphasia, sometimes slower movements to try to reach for something or perform an action. Again depends on how much she is focusing on it. Const: COMMON NORMALS: oriented x3 HENMT: TEETH & GINGIVA: Yes other (Erythema of pharynx, hypopharynx) Neck/C-Spine: COMMON NORMALS: no JVD Resp: COMMON NORMALS: normal respiratory effort AUSCULTATION: no wheezes Cardio: COMMON NORMALS: no JVD, regular rhythm, S1 normal heart sound, S2 normal heart sound and no murmurs RHYTHM: regular rhythm HEART SOUNDS: S1 normal and S2 normal GI: COMMON NORMALS: normal to inspection, nondistended, normoactive bowel sounds, soft to palpation and non-tender PALPATION: Yes soft Extremity: COMMON NORMALS: no joint enlargement and no pedal edema Neuro: COMMON NORMALS: oriented x3 OTHER: Still complains of intermittent tremors or shivers/rigors of all muscles, which she complains are also sore. Intermittently having tremors which do appear like conscious shivering and which appears like she is able to stop volitionally. Again no rigidity noted on exam, no clonus. Sensation is symmetrical. She does not have any pronator drift. Has very good power while at rest, although does say she gets easily fatigued. Visual miller are full to confrontation. She is tracking well. No nystagmus. Follows commands very well. Does perfectly on FNF without any dysmetria. Today very mild a aphasia noted. No dysarthria. Skin: COMMON NORMALS: no rashes or lesions noted GENERAL SKIN EXAM: no rashes or lesions noted Urinary Catheter Management^: Colmenares: Cath Placed During This Visit: yes, but has since been removed by the nurse Reason for Continuing Indwelling Catheter: Decision to DC Catheter Urinary Catheter Date of Insertion: 02/29/20 Urinary Catheter Time of Insertion: 03:15 Date Urinary Catheter Removed: 03/03/20 Time Urinary Catheter Discontinued: 10:53 Data : 03/04/20 06:02 03/04/20 06:02 A&P Assessment and plan (1) Altered mental status: She has worked with physical therapy today. Requiring set-up, minimal or standby assist on many of the tasks with OT. Perseverates on tasks. Per discussion with her prior to the current illness she has had issues with her balance over the past 30 years due to chronic neurologic condition, although had been able to shower herself, feed herself, and get around. He states that she does still have issues with her speech, speaking like a negative person in an old Western movie . He does state that the subjects that they discuss with her over the phone are kind of like the usual topics they used to talk about prior to the current illness. Today she is coughing more during my visit. She does have leukocytosis, and blood pressure is somewhat soft. Requested for repeat chest x-ray due to concern for progression of pneumonia. Does have some interstitial changes. Discussed with her that she may be having viral pneumonia other than COVID-19. Perhaps this may also explain her recurrent episodes of Reiger's. She has been, however, afebrile. Carotid Doppler unremarkable. TTE is good with normal ejection fraction, grade 1 diastolic dysfunction. No obvious thrombus or vegetation. I do not see A. fib on continuous monitoring on telemetry. Continue aspirin, statin. A1c is normal. 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 Significance of whether this relates to her CVA is not clear. No aneurysm is noted on the postcontrast study. PT, OT, ST assessment. Per discussion with her and her, the preference is for her to return home with home health. He is arranging for his granddaughter to also stay with them to help care for her needs. Suspected multifactorial encephalopathy on presentation with combination of viral bronchitis/pneumonia, withdrawal from benzodiazepines as she had discontinued taking diazepam, previously taking 3-4 tablets of 10 mg diazepam in a day. Possible encephalopathy secondary to steroid. Frontoparietal CVA. At this time meningitis or other [employer] infection is probably less likely given she does not have meningeal signs, fever. If there is any worsening may consider obtaining an LP. There were no temporal findings on MRI to suggest HSV encephalitis. On presentation also with sodium 127 with hypovolemic hyponatremia. This andreea to 139 after she received IV hydration, so IVF was discontinued and sodium remained stable, decreasing slightly to 138. I doubt ODS given not very severe initial hyponatremia and not a very severe increase, although in very rare instances it may be possible. Discussed w her . Will additionally reassess TSH which was borderline low, B12, folic acid, ESR, CRP. Would recommend additional follow-up with neurology in clinic. Additional component of somatic symptomatology may be also consideredas well. describes recent significant stress in the family, and states she always gets easily affected emotionally by things. Discussed with that this is possible as well. Status: Acute Qualifiers: Altered mental status type: unspecified Qualified Code(s): R41.82 - Altered mental status, unspecified (2) Viral pneumonia: She is having leukocytosis, today also with soft BP in the morning. Some recurrence of rigors (although much milder than on presentation). On repeat chest x-ray interstitial changes without systemic signs of fluid overload. I suspect this may be again part of the same syndrome with her bronchitis, pharyngitis. Will request rapid flu. Requested also for UA as she had had a Colmenares catheter. This is unremarkable, however. Given overall somewhat strange constellation of symptoms, will additionally check ESR, CRP. Status: Acute (3) Pharyngitis: Rapid strep negative, although may be negative due to recent antibiotic administration. Continue azithromycin for now which should provide coverage alongside for bronchitis, although rapid strep considered less likely. Continue nystatin swish and swallow. Monospot negative. EBV serologies suggestive of past infection. HIV negative. Status: Acute (4) Acute dehydration: Improved. Status: Acute (5) Hyponatremia: Sodium appears relatively stable, without further decreases. Status: Acute (6) Metabolic encephalopathy: Status: Acute (7) Adverse effects of medication: Status: Inactive Qualifiers: Encounter type: initial encounter Qualified Code(s): T50.904U - Adverse effect of unspecified drugs, medicaments and biological substances, initial encounter (8) Bizarre behavior: Status: Acute Additional A&P Information Fibromyalgia: Patient is complaining of hurting all over: CK initially normal. Today worse muscle ache. Will recheck. Subacute bronchitis. Improving. Barely any cough. Wheezing has resolved. Azithromycin. Levalbuterol as needed as reports having some nausea from albuterol. Low suspicion for COVID-19 as she has been tested twice, and both times negative. Still unidentified cause of bronchitis, not well responding to treatment with outpatient antibiotic. Possible other viral bronchitis, pharyngitis, and with constellation of other above symptoms. Leukocytosis: Today there is return of mild leukocytosis. As above. Attestations Medical Necessity Statement*: Due to multifactorial acute encephalopathy, with reaction to medication, CVA, and concern for ongoing infection requires additio nal assessment and inpatient care. Continuing arrangements for discharge. Coding Level of Care Code Acute Weight Control Engineer for Carlos Rollins Diagnoses Altered mental status R41.82 Altered mental status type: unspecified Viral pneumonia J12.9 Pharyngitis J02.9 Acute dehydration E86.0 Hyponatremia E87.1 Metabolic encephalopathy G93.41 Adverse effects of medication T50.902W Encounter type: initial encounter Bizarre behavior R46.2
[2020-03-04 20:25] LABS: Procalcitonin 0.15 ng/mL (0-0.5); Thyroid Stimulating Hormone 0.93 uIU/mL (0.27-4.20); Vitamin B12 569 pg/mL (232-1245)
[2020-03-04 20:38] LABS: C Reactive Protein 42.7 mg/L (0.0-4.9); Creatine Phosphokinase 48 U/L (26-192)
[2020-03-04 20:58] LABS: Folate Level 5.1 ng/mL (4.8-37.3)
[2020-03-04 21:00] LABS: Erythrocyte Sedimentation Rate 7 mm/hr (0-15)
[2020-03-04] MEDS: atorvastatin 40 mg Tablet PO (22:31)
[2020-03-05] VITALS (8 sets, daily range): BP systolic 102–147; BP diastolic 62–88; PULSE 64–85; RESP 18–22; TEMP 36.2–36.7; O2SAT 95–98
--- NOTE | 2020-03-05 02:44 | PC.NURSE ---
rash pt has very red, barely blanchable rash to right buttocks and hamstring that is reaching to left buttock fold. pt is complaining of pain to that area. this nurse had pt last night and redness had not been noted.
[2020-03-05 03:06] LABS: Influenza A by IFA Negative (Negative); Influenza B by IFA Negative (Negative)
--- NOTE | 2020-03-05 03:20 | PM.EVENT ---
Event Note Event Note: I was called to evaluate skin rash Patient has skin eruption around her right buttocks area without any purulent drainage, I have demarcated the rash area, it is maculopapular rash without any purulent drainage, tender and warm on palpation, no aphthous ulcers or conjunctival rash or hyperemia patient is endorsing skin dryness, mouth ulcers, recurrent genital ulcers. She has not received any medication that she is allergic to. She has been admitted with altered mental status, with recurrent oral and genital lesions and the skin rash my suspicion will be high for Behcet's disease. I would start Keflex send ANGEL to rule out vasculitis Start low-dose prednisone
[2020-03-05] MEDS: predniSONE 10 mg Tablet PO ×2 (03:50→09:33)
[2020-03-05] MEDS: ibuprofen 200 mg Tablet 400 MG PO ×2 (03:50→09:44)
[2020-03-05 05:50] LABS: Basophils % 0.4 %; Eosinophils # 0.4 10^3/uL (0.0-0.8); Eosinophils % 4.3 %; Hematocrit 40.4 % (37.0-47.0); Hemoglobin 12.3 g/dL (11.5-15.3); Lymphocytes # 2.8 10^3/uL (0.8-4.8); Lymphocytes % 28.3 %; Mean Corpuscular HGB Conc 30.4 g/dL (30.0-36.0); Mean Corpuscular Hemoglobin 28.4 pg (28.0-34.0); Mean Corpuscular Volume 93.3 fL (81-99); Mean Platelet Volume 10.2 fL (7.4-10.4); Monocytes # 0.7 10^3/uL (0.2-0.9); Monocytes % 6.9 %; Neutrophils # 5.8 10^3/uL (1.8-7.7); Neutrophils % 59.8 %; Nucleated Red Blood Cells % 0 %; Platelet Count 271 10^3/cmm (130-400); Red Blood Count 4.33 10^6/uL (4.1-5.3); Red Cell Distribution Width 14.1 % (12.1-15.1); White Blood Count 9.7 10^3/uL (4.0-10.0)
[2020-03-05 06:11] LABS: Anion Gap 14.2 (5-19); Blood Urea Nitrogen 15 mg/dL (6-20); Calcium 8.8 mg/dL (8.5-10.5); Carbon Dioxide 31 mmol/L (22-29); Chloride 103 mmol/L (98-107); Glomerular Filtration Rate 102.7 mL/min (90-130); Glucose 100 mg/dL (65-115); Osmolality Calculated 296 mOsm/kg (285-295); Potassium 3.2 mmol/L (3.5-5.1); Sodium 145 mmol/L (136-145)
[2020-03-05] MEDS: levalbuterol 0.63 mg/3 mL Neb INHALATION (08:36)
[2020-03-05] MEDS: cephALEXin 500 mg Capsule PO ×2 (09:32→14:16)
[2020-03-05] MEDS: azithromycin 250 mg Tablet 500 MG PO (09:32)
[2020-03-05] MEDS: citalopram 20 mg Tablet 10 MG PO (09:32)
[2020-03-05] MEDS: nystatin 100,000 unit/mL UDC 5 mL 400000 UNIT PO ×3 (09:33→21:41)
[2020-03-05] MEDS: diazePAM 5 mg Tablet PO ×3 (09:33→21:41)
[2020-03-05] MEDS: aspirin 325 mg Tablet PO (09:33)
--- NOTE | 2020-03-05 14:46 | XR_ITS ---
WS: [id number] XR hip RT 2-3V wo/w pel* [id number] REASON FOR EXAM: R buttock erythema, pt not sure if she fell FINDINGS: The right hip is rotated slightly but there is no definite fractures of the head, neck, or intertrochanteric area. The right hemipelvis appears to be normal. XR/XR hip RT 2-3V wo/w pel* [id number] IMPRESSION: Negative right hip and pelvis.
--- NOTE | 2020-03-05 15:02 | PC.SOCIAL ---
Pg 2 IMM Explained to pt Pg 2 IMM. Pt verbally understands. No questions voiced. Provided pt a copy & left on pt's bedside table. Signed, dated, & timed a copy & placed in pt's chart.
--- NOTE | 2020-03-05 19:57 | PM.PN ---
Subjective Subjective: Interval history: Today feeling achy, and has developed a large area of rash over the right buttock and proximal posterior lateral right thigh. Vitals/I&O/Wt Last Vital Signs Temp 98.1 F 03/05/20 15:24 Pulse 72 03/05/20 15:24 Resp 18 03/05/20 15:24 BP 104/62 03/05/20 15:24 Pulse Ox 98 03/05/20 15:24 03/05/20 03/05/20 03/05/20 06:59 14:59 22:59 Intake Total 720 / 720 1120 / 1840 Output Total 1700 / 1700 600 / 2300 Balance -980 / -980 520 / -460 Physical Exam Narrative: EXAM NARRATIVE: Today he is slightly more restless, tangential, speech appears from fluid to moderately aphasic. Const: COMMON NORMALS: oriented x3 HENMT: TEETH & GINGIVA: Yes other (Erythema of pharynx, hypopharynx) Neck/C-Spine: COMMON NORMALS: no JVD Resp: COMMON NORMALS: normal respiratory effort AUSCULTATION: no wheezes Cardio: COMMON NORMALS: no JVD, regular rhythm, S1 normal heart sound, S2 normal heart sound and no murmurs RHYTHM: regular rhythm HEART SOUNDS: S1 normal and S2 normal GI: COMMON NORMALS: normal to inspection, nondistended, normoactive bowel sounds, soft to palpation and non-tender PALPATION: Yes soft Extremity: COMMON NORMALS: no joint enlargement and no pedal edema Neuro: COMMON NORMALS: oriented x3 OTHER: Still complains of intermittent tremors or shivers/rigors of all muscles, which she complains are also sore. Intermittently having tremors which do appear like conscious shivering and which appears like she is able to stop volitionally. Again no rigidity noted on exam, no clonus. Sensation is symmetrical. She does not have any pronator drift. Has very good power while at rest, although does say she gets easily fatigued. Visual miller are full to confrontation. She is tracking well. No nystagmus. Follows commands very well. Does perfectly on FNF without any dysmetria. Today very mild a aphasia noted. No dysarthria. Skin: RASHES: rashes noted (Right buttock, posterior lateral proximal right thigh area of confluent erythema with few smaller surrounding islands of macular lesions, small amount of excoriation) Urinary Catheter Management^: Colmenares: Cath Placed During This Visit: yes, but has since been removed by the nurse Reason for Continuing Indwelling Catheter: Decision to DC Catheter Urinary Catheter Date of Insertion: 02/29/20 Urinary Catheter Time of Insertion: 03:15 Date Urinary Catheter Removed: 03/03/20 Time Urinary Catheter Discontinued: 10:53 Data : 03/05/20 05:11 03/05/20 05:11 A&P Assessment and plan (1) Altered mental status: Persistent of aphasia which varies in intensity from fluent speech to moderate aphasia. Today again having some slight radiation, stating that God was speaking to her last night. This appears possibly delirium associated with the current rash, either cellulitis, or possible vasculitic process. With persistent encephalopathy, which appears to be multifactorial with combination of viral bronchitis/pneumonia, withdrawal from benzodiazepines as she had discontinued taking diazepam, previously taking 3-4 tablets of 10 mg diazepam in a day. Possible encephalopathy secondary to steroid. Frontoparietal CVA. Symptoms started reportedly with bronchitis and/or viral pneumonia. Some of theses changes appear to be persistent on lung images. Covid19 had been negative twice. Now also appears with cellulitis with some suspicion for possible vasculitic process on R buttock, although ESR is entirely normal. CRP is moderately eleavted at 42.7. Started on antibiotic. Will obtain biopsy for pathology. ANGEL pending. B12, folate normal. TSH normal. Continue aspirin, statin. Carotid Doppler unremarkable. TTE is good with normal ejection fraction, grade 1 diastolic dysfunction. No obvious thrombus or vegetation. I do not see A. fib on continuous monitoring on telemetry. A1c is normal. 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 Significance of whether this relates to her CVA is not clear. No aneurysm is noted on the postcontrast study. 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 If there is any worsening consider obtaining an LP. There were no temporal findings on MRI to suggest HSV encephalitis. On presentation also with sodium 127 with hypovolemic hyponatremia. This andreea to 139 after she received IV hydration, so IVF was discontinued and sodium remained stable, decreasing slightly to 138. I doubt ODS given not very severe initial hyponatremia and not a very severe increase, although in very rare instances it may be possible. Discussed w her . PT, OT, ST assessment. Per discussion with her and her, the preference is for her to return home with home health. He is arranging for his granddaughter to also stay with them to help care for her needs. Would recommend additional follow-up with neurology in clinic. Additional component of somatic symptomatology may be also consideredas well. describes recent significant stress in the family, and states she always gets easily affected emotionally by things. Status: Acute Qualifiers: Altered mental status type: unspecified Qualified Code(s): R41.82 - Altered mental status, unspecified (2) Viral pneumonia: Leukocytosis resolved. She is afebrile. Leukocytosis may been related to helping cellulitis on right buttock. Recurrence of rigors (although much milder than on presentation). On repeat chest x-ray interstitial changes without systemic signs of fluid overload. I suspect this may be again part of the same syndrome with her bronchitis, pharyngitis. Rapid flu negative. Covid 19 had been negative. HIV negative. Procalcitonin negative. UA unremarkable. Status: Acute (3) Pharyngitis: Rapid strep negative, although may be negative due to recent antibiotic administration. Monospot negative. EBV serologies suggestive of past infection. Continue azithromycin for now which should provide coverage alongside for bronchitis, although rapid strep considered less likely. Continue nystatin swish and swallow. HIV negative. Status: Acute (4) Acute dehydration: Improved. Status: Acute (5) Hyponatremia: Sodium appears relatively stable, without further decreases. Status: Acute (6) Metabolic encephalopathy: Status: Acute (7) Adverse effects of medication: Status: Inactive Qualifiers: Encounter type: initial encounter Qualified Code(s): T50.905A - Adverse effect of unspecified drugs, medicaments and biological substances, initial encounter (8) Bizarre behavior: Status: Acute (9) Rash: Status: Acute Additional A&P Information Fibromyalgia: Patient is complaining of hurting all over: Complains of muscle aches with CK repeatedly normal. Subacute bronchitis. Improving. Barely any cough. Wheezing has resolved. Azithromycin. Levalbuterol as needed as reports having some nausea from albuterol. Low suspicion for COVID-19 as she has been tested twice, and both times negative. Still unidentified cause of bronchitis, not well responding to treatment with outpatient antibiotic. Possible other viral bronchitis, pharyngitis, and with constellation of other above symptoms. Leukocytosis: Resolved. As above. Attestations Medical Necessity Statement*: Continue admission management of cellulitis, IV antibiotic, additional assessment as above for acute encephalopathy, CVA, protracted viral bronchitis/pneumonia. 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
[2020-03-05] MEDS: atorvastatin 40 mg Tablet PO (21:41)
[2020-03-06] VITALS (7 sets, daily range): BP systolic 124–158; BP diastolic 78–84; PULSE 70–87; RESP 18–20; TEMP 36.4–36.9; O2SAT 95–97
[2020-03-06 05:57] LABS: Anion Gap 16.2 (5-19); Blood Urea Nitrogen 17 mg/dL (6-20); Calcium 8.7 mg/dL (8.5-10.5); Carbon Dioxide 23 mmol/L (22-29); Chloride 107 mmol/L (98-107); Glomerular Filtration Rate 126.7 mL/min (90-130); Glucose 131 mg/dL (65-115); Osmolality Calculated 292 mOsm/kg (285-295); Potassium 4.2 mmol/L (3.5-5.1); Sodium 142 mmol/L (136-145)
[2020-03-06 06:25] LABS: Basophils % 0.2 %; Eosinophils # 0.2 10^3/uL (0.0-0.8); Hematocrit 37.1 % (37.0-47.0); Hemoglobin 11.4 g/dL (11.5-15.3); Lymphocytes # 2.9 10^3/uL (0.8-4.8); Lymphocytes % 27.5 %; Mean Corpuscular HGB Conc 30.7 g/dL (30.0-36.0); Mean Corpuscular Hemoglobin 29.1 pg (28.0-34.0); Mean Corpuscular Volume 94.6 fL (81-99); Mean Platelet Volume 10.3 fL (7.4-10.4); Monocytes # 0.8 10^3/uL (0.2-0.9); Monocytes % 7.7 %; Neutrophils # 6.6 10^3/uL (1.8-7.7); Neutrophils % 62.3 %; Nucleated Red Blood Cells % 0 %; Platelet Count 254 10^3/cmm (130-400); Red Blood Count 3.92 10^6/uL (4.1-5.3); Red Cell Distribution Width 14.5 % (12.1-15.1); White Blood Count 10.6 10^3/uL (4.0-10.0)
[2020-03-06] MEDS: levalbuterol 0.63 mg/3 mL Neb INHALATION (08:10)
[2020-03-06] MEDS: aspirin 325 mg Tablet PO (09:19)
[2020-03-06] MEDS: nystatin 100,000 unit/mL UDC 5 mL 400000 UNIT PO ×3 (09:19→17:20)
[2020-03-06] MEDS: diazePAM 5 mg Tablet PO ×2 (09:20→17:20)
[2020-03-06] MEDS: citalopram 20 mg Tablet 10 MG PO (09:20)
[2020-03-06] MEDS: predniSONE 10 mg Tablet PO (09:20)
[2020-03-06] MEDS: azithromycin 250 mg Tablet 500 MG PO (09:25)
--- NOTE | 2020-03-06 09:40 | PC.CHAP ---
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 [] Patient/Family/Request visit [] Outpatient visit [x] Follow-up visit [] Physician referral [] Code/Alert [] Routine visit [] Staff referral [] Actively dying [] Patient sleeping [] Family support [] [] Out of room [] Palliative care [] [] Receiving care in room [] Pre-surgical visit [] Trauma [] Long length of stay [] ICU visit [] Other: Relational/Emotional Strength [] Patient feels connected with others/family/visitors/staff [] Distress [] Loneliness/isolation [] Abandonment Spirituality of Patient [x] Person of Na [] Attends Islam of their Na [x] Believes in Prayer [] Reads Bible or Mandaen materials [] There are Spiritual issues to be addressed Safety Investigator Interventions [x] Prayer [] Active listening [] Non-anxious presence [] Spiritual/emotional support [] Crisis/trauma care [] Spiritual counseling [] Bereavement support [] Provided bereavement packet [] Provided Bible/devotional materials [] Provided toy/stuffed animal, coloring book to patient or family member [] Provided Communion [] Anointing/Waddy [] Salvation [x] Completed spiritual assessment [] Other: Impact on Illness or Injury [] Angry [] Fearful [] Anxious [] Often cries [] Exhaustion [] Unable to work [] Unable to attend yarsani [] Unable to walk/stand [] Unable to read [] Unable to drive [] Unable to eat/drink [] Unable to sleep [] Unable to be with family [] Patient intubated [] Other: Summary Patient speaking with more clarity this visit. Patient continues to speak of spiritual matters. Time spent with patient 20min
--- NOTE | 2020-03-06 10:21 | PC.NURSE ---
trying to obtain consent for biopsy of skin lesion on thigh, insurance underwriter sales called [phone] and [phone], no answer at this time. will call again.
--- NOTE | 2020-03-06 10:56 | PC.NURSE ---
called patient's family for consent for biopsy. [phone] and [phone]. no answer
[2020-03-06 15:46] LABS: Anti-Double Strand DNA AB <1 IU/mL; Jo-1 Antibody <1.0 NEG AI (<1.0 NEG); SM/RNP Antibodies <1.0 NEG AI (<1.0 NEG); SS-B/LA IGG <1.0 NEG AI (<1.0 NEG); Scleroderma Ab(Scl-70) Ab <1.0 NEG AI (<1.0 NEG); Ss-A/Ro Igg <1.0 NEG AI (<1.0 NEG)
--- NOTE | 2020-03-06 16:38 | P.PCN_ITS ---
Procedure Note: Date of procedure: 03/06/20 Pre-procedure diagnosis: Suspicious skin rash posterior right thigh Post-procedure diagnosis: same Op report anesthesia: Local Performing Provider: Benjamin Vickers Pathology: other Other Information: The posterior aspect of the right thigh around the rash was prepped and draped in a sterile manner after consent had been obtained from the . 5 cc of 1% lidocaine was infiltrated and using 4 mm punch biopsy blade, 2 specimens were obtained and sent in formalin. Pressure dressings were applied. Patient was stable throughout the procedure. Coding Level of Care Code Acute Grounds Person for Carlos Rollins
[2020-03-06] MEDS: lidocaine 1% INJ 20 mL INJECTION (17:20)
[2020-03-06 18:06] LABS: Vancomycin Trough 20.3 ug/mL (10-15)
--- NOTE | 2020-03-06 22:08 | PM.DCS ---
Discharge Providers Date of Admission: 03/02/20 13:35 Date of Discharge: March 06, 2020 Attending Provider at Admission: Yue Coffey MD Attending Provider at Discharge: Quan Carlisle Primary Care Provider: Antwan Soni DO Diagnoses at Discharge Discharge Diagnosis (1) Altered mental status: Status: Acute Qualifiers: Altered mental status type: unspecified Qualified Code(s): R41.82 - Altered mental status, unspecified (2) Viral pneumonia: Status: Acute (3) Pharyngitis: Status: Acute (4) Acute dehydration: Status: Acute (5) Hyponatremia: Status: Acute (6) Metabolic encephalopathy: Status: Acute (7) Adverse effects of medication: Status: Inactive Qualifiers: Encounter type: initial encounter Qualified Code(s): T50.905A - Adverse effect of unspecified drugs, medicaments and biological substances, initial encounter (8) Bizarre behavior: Status: Acute (9) Rash: Status: Acute Problem details: Pending skin biopsy. Most likely cellulitis, but cannot exclude vasculitis. Pending ANGEL, ANCA. (10) CVA (cerebral vascular accident): Status: Acute Reason for Visit Reason for Visit: Reason For Visit: [facility] Hospital Course: Pleasant 60-year-old lady with history of balance and gait difficulties over the past 40 years following neurological surgery of decompression of 8th cranial nerve due to chronic vertigo, HTN, depression, anxiety, fibromyalgia, was recently assessed by several providers due to viral bronchitis and pneumonia starting about 3 weeks ago, and had received treatment with antibiotic, as well as prednisone. She was tested for COVID 19 twice, both times negative. Starting from around last Friday, noted with worsening difficulties with ambulation, movement, on and off difficulties with speech fluency, as well as hyper latter day ideation, which was not previously present. On presentation to the hospital she was complaining of hurting all over, with low energy, and stating that God came down to take care of her . She complained of poor appetite, as well as sore throat, and shortly after admission with scraping in the back of the throat as if a pill got stuck there. She had persistent nonproductive cough. Difficulties with concentration. She was noted to have hyponatremia, as well as dehydration, for which was started on normal saline. Her SSRI was stopped. Thyroid function was checked and was normal. Duloxetine initially continued. She was started on azithromycin due to concern for persistent bronchitis. She had very mild wheezing still present on admission. Initially with leukocytosis, which resolved after holding prednisone. She complaint of sore throat and some aphthous ulcers, with erythema noted, and recently with antibiotic and steroid administration, symptoms most likely consistent with candidal pharyngitis, and was treated with nystatin swish and swallow with improvement. Rapid strep was negative. EBV was assessed indicating possible past infection. HIV negative. On presentation with noted intermittent tremors/rigors, extreme anxiety. She was complaining of muscle spasms, tenderness. CK was checked and was normal. At the same time when she was talked to, on assessment of muscular tone, no rigidity could be noted, or clonus elicited. She remained afebrile. Serotonin syndrome was considered, but thought not likely with her symptoms. Citalopram was initially held. Duloxetine initially also discontinued due to vague motor complaints. On additional questioning she revealed that she had stopped taking diazepam when she initiated antibiotic and steroid stating that someone had told her there may be concern for interaction. She normally takes 10 mg of diazepam 3 and sometimes 4 times a day. Acute delirium secondary to withdrawal from benzodiazepine is highly likely, as well as possible encephalopathy secondary to steroid. Initially noted emotional lability, severe anxiety. Next day also noted worsening of speech fluency with a aphasia of unclear timing of onset. On exam noted also variable/changing degree of weakness of left upper extremity, as well as variable delay in following commands during neurological examination. Worsened emotional lability, more withdrawn. Possibly some sensory neglect, although difficult to assess as he was not cooperating with exam very well. Discussed findings with her who also stated she has had some variable degree of motor dysfunction, and trouble speaking starting around Friday. also did describe that recently she has been under a lot of emotional stress, and that she has always had some difficulties coping with stressful situations, although never had history of extremely strange behavior. With possibility of some the focal neurologic deficits masked by encephalopathy, was assessed by MRI brain for CVA. With unclear timing with multiple different symptoms ongoing for days was not a candidate for intervention. Was noted to have what appears to be old CVA in the right cerebellum, and per radiology noted tiny CVA focus in frontoparietal cortex. She was started on aspirin, statin, underwent assessment for risk factors of CVA with carotid Doppler which was unremarkable, telemetry monitoring which did not show A. fib, A1c which was normal, blood pressure monitoring which was mostly well controlled. TTE was performed and was unremarkable without sign of obvious thrombus or vegetation. With initial therapy her symptoms appear to have improved, fluency of language returned, however, she had recurrent episodes of variable degree a aphasia, recurrent short lasting shivers/tremors during which she would close her eyes and intensely focus, which would last a variable duration. She still complains of muscle spasms, and tenderness, although again with normal repeat CK. Without rigidity or clonus. MRI without suggestion of temporal lobe involvement to suggest HSV encephalitis. Her electrolytes remained normal. B12, folic acid, thyroid function were normal. Her symptoms did appear to improve initially with symptomatic Ativan and resumption of diazepam 5 mg 3 times daily, but were still recurrent/persistent. Her electrolytes remained normal. Her sodium did increase after initial hydration from 127 to 139 where it stayed and decreased slightly later in the day. Discussed with her that in rare situations osmotic demyelination syndrome may occur although is less likely with this degree of hyponatremia, without signs noted on MRI. ESR and CRP were assessed, and CRP was moderately elevated at 42.7. ESR was normal. She worked with PT/OT/ST making progress. Citalopram was reduced at lower dose, but this did not seem to make much difference. Duloxetine was also held for time during hospitalization, but will be resumed on discharge at reduced dosing. With persistence of symptoms as well as recurrence of mild leukocytosis of 11,000 was reassessed with chest x-ray, with finding of emphysema, possibly mild interstitial prominence, UA which was unremarkable. 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 Steroid was not continued. Antibiotic while in hospital switched over to vancomycin from Keflex. With most likely cellulitis, with mild abrasion, and she did state that she try to get out from bed by herself, and slipped against the edge (although per discussion with RN bed alarm should have been maintained most of the time, and this was not reported or documented, so questioned). Right hip x-ray negative for fracture or acute pathology. Due to unusual constellation of symptoms, elevated CRP, area of erythema was also assessed by skin biopsy. Results will be pending and need to be followed up for possible vasculitis. Due to this we will also have her follow-up with rheumatology. ANGEL and ANCA were ordered and pending. Erythema did significantly improve after treatment today. She will complete the course with cephalexin. Per discussion with neurology she will be followed up with outpatient repeat MRI and EEG as stroke and right frontoparietal cortex is not impressive. She will subsequently be seen by neurology in office for additional assessment and recommendations. Discussed with her , as well as with her PCP regarding the strange presentation and lack of clear etiology. Her primary care provider will be expecting her in office, as well as to follow-up on pending studies and referrals. Discussed with her that she requires constant supervision, and per their preference she is returning home with home health as opposed to care home facility. He is arranged for extra family members to help out at home. The patient was overjoyed about returning home as was her since they are not used to staying apart from each other for any prolonged amount of time. Physical Exam Narrative: EXAM NARRATIVE: Today he is slightly more restless, tangential, speech appears from fluid to moderately aphasic. Const: COMMON NORMALS: oriented x3 HENMT: TEETH & GINGIVA: Yes other (Erythema of pharynx, hypopharynx almost resolved. No ulcers noted in the mouth.) Neck/C-Spine: COMMON NORMALS: no JVD Resp: COMMON NORMALS: normal respiratory effort AUSCULTATION: no wheezes Cardio: COMMON NORMALS: no JVD, regular rhythm, S1 normal heart sound, S2 normal heart sound and no murmurs RHYTHM: regular rhythm HEART SOUNDS: S1 normal and S2 normal GI: COMMON NORMALS: normal to inspection, nondistended, normoactive bowel sounds, soft to palpation and non-tender PALPATION: Yes soft Extremity: COMMON NORMALS: no joint enlargement and no pedal edema Neuro: COMMON NORMALS: oriented x3 OTHER: Still complains of intermittent tremors or shivers/rigors of all muscles, which she complains are also sore. Intermittently having tremors which do appear like conscious shivering and which appears like she is able to stop volitionally. Again no rigidity noted on exam, no clonus. Sensation is symmetrical. She does not have any pronator drift. Has very good power while at rest, although does say she gets easily fatigued. Visual miller are full to confrontation. She is tracking well. No nystagmus. Follows commands very well. Does perfectly on FNF without any dysmetria. Variable degree of aphasia. Skin: COMMON NORMALS: no rashes or lesions noted GENERAL SKIN EXAM: no rashes or lesions noted RASHES: rashes noted (Right buttock, posterior lateral proximal right thigh area of confluent erythema with few smaller macular lesions, small amount of excoriation. Significantly paler today.) Urinary Catheter Management^: Colmenares: Cath Placed During This Visit: yes, but has since been removed by the nurse Reason for Continuing Indwelling Catheter: Decision to DC Catheter Urinary Catheter Date of Insertion: 02/29/20 Urinary Catheter Time of Insertion: 03:15 Date Urinary Catheter Removed: 03/03/20 Time Urinary Catheter Discontinued: 10:53 Discharge Data Data Completed and Pending: Completed Studies During Hospitalization Category Date Time Status XR chest 1V jose ble [id number] Routine Exams 03/03/20 14:00 Completed XR chest 1V jose ble [id number] Routine Exams 03/04/20 08:30 Completed XR chest 1V jose ble [id number] Stat Exams 02/29/20 01:21 Completed XR hip RT 2-3V wo /w pel* [id number] Rout ine Exams 03/05/20 14:46 Completed MR head wo/w con [id number] Routine MRI 03/02/20 11:32 Completed CV carotid duplex BI* [id number] Routine Ultrasound 03/03/20 07:00 Completed CV echo complete* [id number] Routine Ultrasound 03/03/20 07:00 Completed Pending at discharge Category Date Time Status ANGEL Screen w/ Ref serina Routine Lab 03/06/20 17:50 Received Complete Blood Co unt w/Auto AM LABS Lab 03/07/20 04:00 Ordered Miscellaneous Paula t Routine Lab 03/06/20 17:50 Received Pathology: Surgic al [PTH] Routine Pth 03/06/20 16:47 Ordered Labs from last 24 hours 03/06/20 03/06/20 03/06/20 15:30 06:07 04:34 WBC 10.6 H RBC 3.92 L Hgb 11.4 L Hct 37.1 MCV 94.6 MCH 29.1 MCHC 30.7 RDW 14.5 Plt Count 254 MPV 10.3 Neut % (Auto) 62.3 Lymph % (Auto) 27.5 Cole % (Auto) 7.7 Eos % (Auto) 2.0 Baso % (Auto) 0.2 Neut # (Auto) 6.6 Lymph # (Auto) 2.9 Cole # (Auto) 0.8 Eos # (Auto) 0.2 Baso # (Auto) 0.0 Nucleated RBC % (a uto) 0 Nucleated RBCs # 0.0 Sodium 142 Potassium 4.2 Chloride 107 Carbon Dioxide 23 Anion Gap 16.2 BUN 17 Creatinine 0.5 GFR Calculation 126.7 Glucose 131 H Calculated Osmolal ity 292 Calcium 8.7 Vancomycin Trough 20.3 H SHANTI-1 Antibody SS-A/Ro IgG Antibo dy SS-B/La IgG Antibo dy Anti-nRNP/Sm IgG A b Scl-70 Scleroderma Ab Anti-ds DNA IgG Ab 03/05/20 05:11 WBC RBC Hgb Hct MCV MCH MCHC RDW Plt Count MPV Neut % (Auto) Lymph % (Auto) Cole % (Auto) Eos % (Auto) Baso % (Auto) Neut # (Auto) Lymph # (Auto) Cole # (Auto) Eos # (Auto) Baso # (Auto) Nucleated RBC % (a uto) Nucleated RBCs # Sodium Potassium Chloride Carbon Dioxide Anion Gap BUN Creatinine GFR Calculation Glucose Calculated Osmolal ity Calcium Vancomycin Trough SHANTI-1 Antibody <1.0 neg SS-A/Ro IgG Antibo dy <1.0 neg SS-B/La IgG Antibo dy <1.0 neg Anti-nRNP/Sm IgG A b <1.0 neg Scl-70 Scleroderma Ab <1.0 neg Anti-ds DNA IgG Ab <1 Vitals: Last Vital Signs Temp 98.4 F 03/06/20 16:00 Pulse 70 03/06/20 16:00 Resp 18 03/06/20 16:00 BP 143/84 03/06/20 16:00 Pulse Ox 97 03/06/20 16:00 Discharge Plan Discharge Patient Disposition: Home Health Service Condition: Stable Prescriptions: New atorvastatin 40 mg Tablet 40 mg PO BEDTIME Qty: 30 RF: 0 azithromycin 250 mg Tablet 500 mg PO DAILY Qty: 2 RF: 0 aspirin 325 mg Tablet 325 mg PO DAILY Qty: 30 RF: 0 cephalexin 500 mg Capsule 500 mg PO QID 7 Days Qty: 28 RF: 0 nystatin 100,000 unit/mL Suspension 400,000 unit PO QID Qty: 200 RF: 0 Continued promethazine-DM 6.25-15 mg/5 mL syrup 5 - 10 ml PO Q6H PRN (Reason: Cough) RF: 0 albuterol sulfate 1.25 mg/3 mL Solution For Nebulization 1.25 mg INHALATION Q4H RF: 0 Mucus Relief 400 mg Tablet 400 mg PO Q4H PRN (Reason: Congestion) RF: 0 Changed ipratropium-albuterol 0.5 mg-3 mg(2.5 mg base)/3 mL Solution For Nebulization 3 ml INHALATION QID PRN (Reason: Shortness Of Breath Or Wheezing) Qty: 0 RF: 0 citalopram 20 mg tablet 10 mg PO DAILY Qty: 0 RF: 0 diazepam 10 mg tablet 5 mg PO TID Qty: 0 RF: 0 duloxetine 60 mg capsule,delayed release(DR/EC) 60 mg PO EVERY OTHER DAY Qty: 0 RF: 0 Discontinued prednisone 20 mg tablet 20 mg PO DAILY RF: 0 budesonide 0.5 mg/2 mL suspension for nebulization 0.5 mg inhalation BID RF: 0 levofloxacin 500 mg tablet 500 mg PO DAILY RF: 0 duloxetine 60 mg capsule,delayed release(DR/EC) 60 mg PO DAILY RF: 0 Discharge Orders: Discharge Order (Routine); Ordered 03/06/20 Ordered By: Quan Carlisle Other Ambulatory Orders: EEG electroencephalogram (Routine) Timeframe: 3 Days Facility: [facility] - Location: Neurology Ordered By: Quan Carlisle MR head wo/w con [id number] (Routine) Timeframe: 3 Days Facility: [facility] - Location: Radiology [facility] Ordered By: Quan Carlisle Referrals: Rheumatology [Provider Group] - 2 weeks (Tomorrow morning, please call [facility] to schedule an appointment to be seen in 2 weeks. [phone]) [facility] [Outside] Sara Ontiveros MD [Physician] - 1 week (After MRI and EEG, Please call Dr. Lopez office to schedule a followup) Antwan Soni DO [Primary Care Provider] - 4-7 days (Tomorrow Morning, Please call to schedule a hospital followup with Dr. Soni to be seen in 4 to 7 days.) Discharge Diet: Full LIquid Discharge Activity: Increase activity as tolerated and As per PT/OT instructions Patient Instructions: Dehydration - Adult, Cephalexin (By mouth), Aspirin (By mouth), Azithromycin (By mouth), Atorvastatin (By mouth), Altered Mental Status (GEN) Activity Restrictions/Additional Instructions: Maintain strict fall precautions. Strict aspiration precautions. Continue working with speech therapy as well as physical and Occupational Therapy. Please maintain supervision at all times. [facility] Centralized Scheduling Department will be calling to set your outpatient MRI and EEG. If you don't hear from them by by tomorrow afternoon, please call them at [phone]. Please complete the requested follow-up MRI and EEG, as well as follow-up with neurology in office. Please complete antibiotic for skin infection, and the skin biopsy results after they are investigated by pathology will need to be followed up with the primary care doctor. Please do not discontinue medications suddenly. If you experience any worsening in mental status, any high fever, any worsening in breathing, severe headache, seizure or other abnormal symptoms please seek medical attention without delay. Discharge Attestations Time Spent in Discharge Care*: greater than 30 min Quality Metrics Clinical Quality Measures During this hospital stay, did patient experience: None Coding Level of Care Code Acute Hospice Bereavement Coordinator for Carlos Rollins Diagnoses Altered mental status R41.82 Altered mental status type: unspecified Viral pneumonia J12.9 Pharyngitis J02.9 Acute dehydration E86.0 Hyponatremia E87.1 Metabolic encephalopathy G93.41 Adverse effects of medication T50.905A Encounter type: initial encounter Bizarre behavior R46.2 Rash R21 CVA (cerebral vascular accident) I63.9
[2020-03-07 06:46] VITALS: BP 143/84; PULSE 70; RESP 18; TEMP 36.9; O2SAT 97
[2020-03-08 14:47] LABS: Anti-Nuclear Antibody Screen NEGATIVE (NEGATIVE)
== END 2020-03-06 19:15 | disposition home health service (06) | DRG 70 ==
LOC: ER 06:19 → MEDSURG 07:43
PROVIDERS: Admitting Provider Internal Medicine; Emergency Provider Emergency Medicine; PCP Internal Medicine; Visit Provider Internal Medicine
DX: G93.41 Metabolic encephalopathy (principal); J18.9 Pneumonia, unspecified organism; E87.1 Hypo-osmolality and hyponatremia; L03.317 Cellulitis of buttock; M35.2 Behcet's disease; M79.7 Fibromyalgia; F41.8 Other specified anxiety disorders; E86.0 Dehydration; H81.10 Benign paroxysmal vertigo, unspecified ear; I10 Essential (primary) hypertension; R41.82 Altered mental status, unspecified; T42.4X6A Underdosing of benzodiazepines, initial encounter; Z91.128 Patient's intentional underdosing of medication regimen for other reason; J20.9 Acute bronchitis, unspecified; R46.2 Strange and inexplicable behavior; J02.9 Acute pharyngitis, unspecified; R25.1 Tremor, unspecified; Z86.73 Personal history of transient ischemic attack (TIA), and cerebral infarction without residual deficits
CPT/HCPCS: 12345; 36415; 36600; 51702; 70553; 71045; 73502; 80048; 80053; 80202; 81001; 81003; 82009; 82550; 82607; 82746; 82803; 83036; 83516; 83605; 83930; 84145; 84295; 84300; 84443; 84484; 84550; 85025; 85610; 85651; 85730; 86140; 86225; 86235; 86308; 86850; 86900; 87081; 87804; 87806; 87880; 88305; 92523; 92610; 93005; 93306; 93880; 94640; 94762; 96105; 96372; 96375; 97110; 97161; 97165; 97530; 97535; 99283; A9579; G0378; J1650; J2001; J2060; J3370; J7030; J7050; J7512; J7614; Q0144

== ENCOUNTER → 2020-03-21 07:33 | Outpatient (BNVA) | payer MEDICARE, SELFPAY | PROVIDERS: PCP Internal Medicine; Visit Provider Specialist | DX: G93.40 Encephalopathy, unspecified (principal) | CPT/HCPCS: 95816 ==

== ENCOUNTER 2020-04-06 10:15 | Outpatient (CLI) | payer MEDICARE, SELFPAY ==
--- NOTE | 2020-04-06 10:23 | MR_ITS ---
WS: [id number] MRI BRAIN WITH AND WITHOUT CONTRAST HISTORY: CVA COMPARISON: 03/02/2020 TECHNIQUE: Multiplanar imaging performed through the brain with Prohance 14 ml's IV. No acute infarcts are seen. Lira-white matter differentiation is well preserved. No residual or new a cute infarcts are identified. Increased T2 and FLAIR signal abnormality in the RIGHT cerebellum with mild volume loss is most typical for prior ischemic infarct. There is no enhancement. History of prio r surgery in this region. No susceptibility artifacts or prior lacunar infarcts. Ventricles and extra-axial spaces are normal. Clivus and pituitary gland are normal. There is a small round mass centered within the mid LEFT internal auditory canal involving the 7th an d 8th cranial nerve complex. Mass is of decreased signal on the T1 and T2 sequences with significant enhancement on the post contrast. There is a small dural tail. There is diffuse enhancement within th e mass measuring 4.4 x 4.0 mm. No intracranial mass. Dural venous sinuses are normal. Paranasal sinuses: Well aerated with no significant disease. Mastoid air cells: Normal. Calvarium and scalp: Normal. MR/MR head wo/w con [id number] IMPRESSION: 1. No acute infarcts. Resolution of previously described infarct. 2. Remote infarct or postsurgical gliosis in the RIGHT cerebellum is stable. 3. Enhancing mass in the LEFT mid internal auditory canal involving the 7th an d 8th cranial nerve complex. Statistically this is probably a small schwannoma or meningioma measuring 4.4 x 4.0 mm. Follow-up with ENT.
== END 2020-04-06 10:16 | disposition home or self-care (01) ==
LOC: RADWPI 10:18
PROVIDERS: Family Provider Internal Medicine; PCP Internal Medicine; Visit Provider Internal Medicine
DX: I63.9 Cerebral infarction, unspecified (principal); R22.0 Localized swelling, mass and lump, head
CPT/HCPCS: 70553; A9579

== ENCOUNTER 2020-04-10 | Outpatient (RCR) | payer MEDICARE, SELFPAY | END 2020-04-10 23:00 | disposition home or self-care (01) | LOC: SST | PROVIDERS: PCP Internal Medicine; Referring Provider Internal Medicine; Visit Provider Internal Medicine | DX: G93.41 Metabolic encephalopathy; I99.8 Other disorder of circulatory system; Z86.73 Personal history of transient ischemic attack (TIA), and cerebral infarction without residual deficits | CPT/HCPCS: 99204; 99999 ==

== ENCOUNTER 2020-05-19 07:58 | Outpatient (CLI) | payer MEDICARE, SELFPAY ==
--- NOTE | 2020-05-19 08:06 | CT_ITS ---
WS: [id number] CT scan of the intracerebral circulation with and without IV contrast Additional two-dimensional aurelia nal and sagittal reconstruction was performed. MIP images were also performed. 05/19/2020 Clinical Data: UNSPECIFIED CEREBRAL INFARCTION Comparison: MRI of the head and brain, 04/06/2020. DLP: 2108.[address] scans at [facility] use at least one of these dose optimization techniques: automat ed exposure control; mA and/or kV adjustment per patient size (includes targeted exams where dose is matched to clinical indication); or iterative reconstruction. Findings: The patient has had a right occipital craniotomy. The ventricular system is modestly dilated without shift. No recent infarct or hemorrhage is seen. There is a small area of encephalomalacia of the late ral aspect of the right cerebellar hemisphere. The intracerebral circulation appears to be normal. Th e internal carotid arteries bifurcate into the anterior and middle cerebral arteries. The basilar art sandi forms the posterior cerebral arteries. No abnormal contrast enhancement any structure occurs. Spe cifically there is no abnormal enhancement of the region of the left 7th and 8th cranial nerves. No a bnormal intracranial mass can be seen. No skull fractures or erosions are seen. The mastoid air cells , internal auditory canals, sella turcica, intraorbital contents and paranasal sinuses are unremarkab le. CT/CT angio head [id number] Impression: 1. Status post right occipital craniotomy with small area of right cerebellar h emisphere encephalomalacia. 2. Negative for intracerebral aneurysm or hemorrhage. 3. No abnormal enhancement occurs in the regions of the left 7th and 8th crania l nerves.
[2020-05-19] MEDS: iohexol 350 mg/mL 100 mL Btl IV (08:38)
== END 2020-05-19 07:59 | disposition home or self-care (01) ==
LOC: RADWPI 08:01
PROVIDERS: Family Provider Internal Medicine; PCP Internal Medicine; Visit Provider Nurse Practitioner
DX: I63.9 Cerebral infarction, unspecified (principal); G93.89 Other specified disorders of brain
CPT/HCPCS: 70496; Q9967

== ENCOUNTER 2020-06-27 14:12 | Emergency (ER) | payer MEDICARE, SELFPAY ==
[2020-06-27 14:33] VITALS: BP 142/98; PULSE 84; RESP 18; TEMP 37.3; O2SAT 98; BMI 23.6
--- NOTE | 2020-06-27 15:09 | XRR_ITS ---
PROCEDURE INFORMATION: Exam: XR Chest, 1 View Exam date and time: 06/27/2020 3:14 PM Age: 60 years old Clinical indication: Cough and dyspnea and fever; Additional info: Dyspnea, fever, covid exposure TECHNIQUE: Imaging protocol: XR of the chest Views: 1 view. COMPARISON: CR XR chest 1V portable [id number] 03/04/2020 10:26 AM FINDINGS: Lungs: Unremarkable. No consolidation. Pleural space: Unremarkable. No pleural effusion. No pneumothorax. Heart/Mediastinum: No cardiomegaly. Mildly tortuous aorta. Bones/joints: Unremarkable. XR/XR chest 1V portable [id number] IMPRESSION: No acute findings.
--- NOTE | 2020-06-27 15:10 | ECG_ITS ---
[facility] Test Date: 2020-06-27 Pat Name: Alla Woo Department: Room: Gender: Female Director Alumni Relations: : 1960 Requested By: Jolie Elena Order Number: [id number] Alva MD: Yue Ramirez M.D. Measurements Intervals [place] Rate: 68 P: 33 MD: 119 QRS: 11 QRSD: 73 T: 15 QT: 394 QTc: 421 Interpretive Statements SINUS RHYTHM WITH SHORT MD INTERVAL POSSIBLE LEFT ATRIAL ENLARGEMENT [-0.1mV P WAVE IN V1/V2] POSSIBLE RIGHT VENTRICULAR CONDUCTION DELAY [RSR (QR) IN V1/V2] Compared to ECG 02/29/2020 04:28:01 Short MD interval now present T-wave abnormality no longer present Electronically Signed On 06-27-2020 17:28:28 CDT by Yue Ramirez M.D. [email or web address]
[2020-06-27] MEDS: sodium chloride 0.9% 500 ML 999 ML IV (15:20)
[2020-06-27 16:00] LABS: Basophils % 0.4 %; Eosinophils # 0.1 10^3/uL (0.0-0.8); Eosinophils % 0.8 %; Hematocrit 43.6 % (37.0-47.0); Hemoglobin 13.4 g/dL (11.5-15.3); Lymphocytes # 1.6 10^3/uL (0.8-4.8); Lymphocytes % 15.3 %; Mean Corpuscular HGB Conc 30.7 g/dL (30.0-36.0); Mean Corpuscular Hemoglobin 28.4 pg (28.0-34.0); Mean Corpuscular Volume 92.4 fL (81-99); Mean Platelet Volume 10.6 fL (7.4-10.4); Monocytes # 0.6 10^3/uL (0.2-0.9); Monocytes % 5.8 %; Neutrophils # 8.15 10^3/uL (1.8-7.7); Neutrophils % 77.5 %; Nucleated Red Blood Cells % 0 %; Platelet Count 366 10^3/cmm (130-400); Red Blood Count 4.72 10^6/uL (4.1-5.3); Red Cell Distribution Width 13.2 % (12.1-15.1); White Blood Count 10.5 10^3/uL (4.0-10.0)
[2020-06-27 16:05] LABS: Troponin(5th) Baseline 6 ng/L (0-10)
[2020-06-27 16:08] LABS: Alanine Aminotransferase 17 U/L (0-33); Albumin Level 4.5 g/dL (3.5-5.2); Alkaline Phosphatase 93 IU/L (35-105); Aspartate Amino Transferase 17 U/L (0-32); Blood Urea Nitrogen 15 mg/dL (6-20); Calcium 9.9 mg/dL (8.5-10.5); Carbon Dioxide 27 mmol/L (22-29); Chloride 103 mmol/L (98-107); Globulin 1.9 g/dL (1.3-4.6); Glomerular Filtration Rate 102.7 mL/min (90-130); Glucose 123 mg/dL (65-115); Osmolality Calculated 290 mOsm/kg (285-295); Sodium 141 mmol/L (136-145); Total Bilirubin 0.3 mg/dL (0.15-1.2); Total Protein 6.4 g/dL (6.6-8.7)
[2020-06-27 16:12] VITALS: BP 145/92; PULSE 65; RESP 16
[2020-06-27 16:17] LABS: Anion Gap 15.8 (5-19); Potassium 4.8 mmol/L (3.5-5.1)
--- NOTE | 2020-06-27 16:27 | ED_ITS ---
HPI - URI/Sore Throat General: Chief Complaint: Upper Respiratory Infection Stated Complaint: covid s/s Time Seen by Provider: 06/27/20 14:46 History of Present Illness: HPI Narrative: This patient is a 60-year-old female presenting with bronchitis. She has been seeing her primary care doctor with this for several weeks. She has been on a prednisone taper and only has 2 doses left. She is not been treated with antibiotics. She has been tested for COVID 4 times, the most recent was 2 or 3 weeks ago. Since that time she has been around 2 family members who were exposed to a known case of COVID. Neither of them are symptomatic. Today she was feeling very shaky and her thought that she was having another stroke. She was here a few months ago with similar symptoms of shaking and was diagnosed with a stroke. She denies any other symptoms suggestive of stroke. She also says that she has had panic attacks that felt similar to this. Her bronchitis is not improving. She feels a little bit short of breath and she feels like her voice is very hoarse. She has run a low-grade fever for the last day or so. She said it was 100.1 at home. MD elicited complaint: fever, cough and sore throat Onset (ago): week(s) (2) Consistency: constant Severity: moderate Exacerbating factors: nothing Relieving factors: nothing Associated symptoms: Reports fever(s), short of breath and other (Anxiety and shaking inside); Deny abdominal pain, chest pain, headache(s), nausea or vomiting Review of Systems General: Reports: 10 or more systems reviewed and unremarkable except in HPI and below Const: Reports: fever(s) Eyes: Denies: change in vision ENMT: Denies: odynophagia Card: Denies: chest pain or swelling of feet/ankles Resp: Reports: dyspnea and non-productive cough; Denies: productive cough GI: Denies: abdominal pain, nausea or vomiting : Denies: flank pain or difficulty voiding Musc: Denies: neck pain or back pain Skin/Breast: Denies: rash Neuro: Denies: headache(s), numbness in extremities or weakness in extremities Psych: Reports: anxiety Tyrel/Lymph: Denies: easy bruising or easy bleeding PFSH ED PFSH: Medical History BPPV (benign paroxysmal positional vertigo) Depression Fibromyalgia Hypertension Metabolic encephalopathy Normal colonoscopy Palpitations Surgical History H/O ovarian cystectomy Hx of cholecystectomy S/P brain surgery As per the patient she has had decompressive surgeries for 8th nerve decompression for vertigo Status post right breast lumpectomy Family History Other Heart disorder Social History Smoking and tobacco status: never smoked Alcohol intake: never Household members: spouse Housing: House Pets and animals: No Physical Exam Const: COMMON NORMALS: no acute distress, patient oriented x3, no limitations and alert GENERAL APPEARANCE: cooperative and comfortable HENMT: HEAD & SCALP: normal to inspection FACE & SINUS: normal facial exam Eye: GENERAL EYE: appearance normal, both eyes and all related structures Neck/C-Spine: COMMON NORMALS: supple, no meningeal signs and no JVD Chest: COMMONS NORMALS: normal inspection of the chest Resp: COMMON NORMALS: normal respiratory effort, No use of accessory muscles and clear to auscultation bilaterally AUSCULTATION: clear to auscultation bilaterally Cardio: COMMON NORMALS: no JVD, regular rate, regular rhythm and No murmurs present (Cardio) RATE: regular rate RHYTHM: regular rhythm GI: COMMON NORMALS: Normal to inspection, nondistended, normoactive bowel sounds present, Soft to palpation and non-tender INSPECTION: Yes normal to inspection AUSCULTATION: Yes normoactive bowel sounds PALPATION: Yes Soft to palpation Back/Pelvis: COMMON NORMALS: thoracic and lumbar spine normal to inspection Extremity: COMMON NORMALS: normal to inspection Neuro: COMMON NORMALS: patient oriented x3, moves all extremities, no focal motor deficits and no sensory deficits noted SENSORIUM/ORIENTATION: Yes alert MENINGEAL SIGNS: Yes no meningeal signs Psych: COMMON NORMALS: mental status grossly normal, cooperative and normal affect Skin: COMMON NORMALS: no rashes or lesions noted and turgor normal GENERAL SKIN EXAM: no rashes or lesions noted and turgor normal Course ED course: This patient is extremely anxious. She has complaints of a cough that she relates to bronchitis. She is on a steroid taper. She is been following up with her PCP. Her oxygen level is fine and she does not have typical symptoms of COVID although it is possible. She has had a potential exposure and send out COVID was ordered and sent. She was reassured that e verything looked okay and she will continue to self quarantine at home. Vital Signs: Vital signs: Vital Signs Temperature 99.1 F 06/27/20 14:33 Pulse Rate 70 06/27/20 18:10 Respiratory Rate 16 06/27/20 18:10 Blood Pressure 145/70 06/27/20 18:10 Pulse Oximetry 99 06/27/20 18:10 MDM - URI/Sore Throat Lab Data: Labs: Lab Results 06/27/20 06/27/20 06/27/20 Range/Units 15:30 15:30 15:30 WBC 10.5 H (4.0-10.0) 10^3/ uL RBC 4.72 (4.1-5.3) 10^6/u L Hgb 13.4 (11.5-15.3) g/dL Hct 43.6 (37.0-47.0) % MCV 92.4 (81-99) fL MCH 28.4 (28.0-34.0) pg MCHC 30.7 (30.0-36.0) g/dL RDW 13.2 (12.1-15.1) % Plt Count 366 (130-400) 10^3/c mm MPV 10.6 H (7.4-10.4) fL Neut % (Auto) 77.5 % Lymph % (Auto) 15.3 % Hutchinson % (Auto) 5.8 % Eos % (Auto) 0.8 % Baso % (Auto) 0.4 % Neut # (Auto) 8.15 H (1.8-7.7) 10^3/u L Lymph # (Auto) 1.6 (0.8-4.8) 10^3/u L Hutchinson # (Auto) 0.6 (0.2-0.9) 10^3/u L Eos # (Auto) 0.1 (0.0-0.8) 10^3/u L Baso # (Auto) 0.0 (0.0-0.1) 10^3/u L Nucleated RBC % (a uto) 0 % Nucleated RBCs # 0.0 /100WBC Sodium 141 (136-145) mmol/L Potassium 4.8 (3.5-5.1) mmol/L Chloride 103 (98-107) mmol/L Carbon Dioxide 27 (22-29) mmol/L Anion Gap 15.8 (5-19) BUN 15 (6-20) mg/dL Creatinine 0.6 (0.5-0.9) mg/dL GFR Calculation 102.7 (90-130) mL/min Glucose 123 H (65-115) mg/dL Calculated Osmolal ity 290 (285-295) mOsm/k g Calcium 9.9 (8.5-10.5) mg/dL Total Bilirubin 0.3 (0.15-1.2) mg/dL AST 17 (0-32) U/L ALT 17 (0-33) U/L Alkaline Phosphata se 93 (35-105) IU/L Troponin T Baselin e 6 (0-10) ng/L Troponin T 120 Min match-e-be-nash-she-wish band (0-10) ng/L Delta Troponin T (0-10) ABS# C-Reactive Protein 2.1 (0.0-4.9) mg/L Total Protein 6.4 L (6.6-8.7) g/dL Albumin 4.5 (3.5-5.2) g/dL Globulin 1.9 (1.3-4.6) g/dL 08/25/20 Range/Units 17:50 WBC (4.0-10.0) 10^3/ uL RBC (4.1-5.3) 10^6/u L Hgb (11.5-15.3) g/dL Hct (37.0-47.0) % MCV (81-99) fL MCH (28.0-34.0) pg MCHC (30.0-36.0) g/dL RDW (12.1-15.1) % Plt Count (130-400) 10^3/c mm MPV (7.4-10.4) fL Neut % (Auto) % Lymph % (Auto) % Hutchinson % (Auto) % Eos % (Auto) % Baso % (Auto) % Neut # (Auto) (1.8-7.7) 10^3/u L Lymph # (Auto) (0.8-4.8) 10^3/u L Hutchinson # (Auto) (0.2-0.9) 10^3/u L Eos # (Auto) (0.0-0.8) 10^3/u L Baso # (Auto) (0.0-0.1) 10^3/u L Nucleated RBC % (a uto) % Nucleated RBCs # /100WBC Sodium (136-145) mmol/L Potassium (3.5-5.1) mmol/L Chloride (98-107) mmol/L Carbon Dioxide (22-29) mmol/L Anion Gap (5-19) BUN (6-20) mg/dL Creatinine (0.5-0.9) mg/dL GFR Calculation (90-130) mL/min Glucose (65-115) mg/dL Calculated Osmolal ity (285-295) mOsm/k g Calcium (8.5-10.5) mg/dL Total Bilirubin (0.15-1.2) mg/dL AST (0-32) U/L ALT (0-33) U/L Alkaline Phosphata se (35-105) IU/L Troponin T Baselin e (0-10) ng/L Troponin T 120 Min [place] 6.00 (0-10) ng/L Delta Troponin T 0 (0-10) ABS# C-Reactive Protein (0.0-4.9) mg/L Total Protein (6.6-8.7) g/dL Albumin (3.5-5.2) g/dL Globulin (1.3-4.6) g/dL Discharge Plan Discharge Patient Disposition: Home Clinical Impression: Cough, Anxiety Condition: Stable Prescriptions: No Action citalopram 20 mg tablet 20 mg PO DAILY RF: 0 atorvastatin 40 mg Tablet 40 mg PO BEDTIME Qty: 30 RF: 0 azithromycin 250 mg Tablet 500 mg PO DAILY Qty: 2 RF: 0 aspirin 325 mg Tablet 325 mg PO DAILY Qty: 30 RF: 0 ipratropium-albuterol 0.5 mg-3 mg(2.5 mg base)/3 mL Solution For Nebulization 3 ml INHALATION QID PRN (Reason: Shortness Of Breath Or Wheezing) Qty: 0 RF: 0 citalopram 20 mg tablet 10 mg PO DAILY Qty: 0 RF: 0 diazepam 10 mg tablet 5 mg PO TID Qty: 0 RF: 0 duloxetine 60 mg capsule,delayed release(DR/EC) 60 mg PO EVERY OTHER DAY Qty: 0 RF: 0 nystatin 100,000 unit/mL Suspension 400,000 unit PO QID Qty: 200 RF: 0 promethazine-DM 6.25-15 mg/5 mL syrup 5 - 10 ml PO Q6H PRN (Reason: Cough) RF: 0 albuterol sulfate 1.25 mg/3 mL Solution For Nebulization 1.25 mg INHALATION Q4H RF: 0 Mucus Relief 400 mg Tablet 400 mg PO Q4H PRN (Reason: Congestion) RF: 0 Discharge Orders: Discharge Order (Routine); Ordered 06/27/20 Ordered By: Jolie Trinidad Referrals: Antwan Soni DO [Primary Care Provider] - Discharge Diet: Usual diet Discharge Activity: Resume usual activity Patient Instructions: Acute Bronchitis (ED) Activity Restrictions/Additional Instructions: Remain on self quarantine until the COVID test results come back. Follow-up with Dr. Soni regarding your continuing symptoms. Discharge Date/Time: 06/27/20 18:11 Coding Level of Care Code ED Relationship Executive for Carlos Fwd Exam Comprehensive
[2020-06-27 16:37] LABS: C Reactive Protein 2.1 mg/L (0.0-4.9)
--- NOTE | 2020-06-27 17:10 | ECG_ITS ---
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 Measurements Intervals [place] Rate: 73 P: 62 ND: 122 QRS: 39 QRSD: 68 T: 23 QT: 385 QTc: 425 Interpretive Statements SINUS RHYTHM WITH SINUS ARRHYTHMIA POSSIBLE LEFT ATRIAL ENLARGEMENT [-0.1mV P WAVE IN V1/V2] Compared to ECG 06/27/2020 15:28:46 Short ND interval no longer present Electronically Signed On 06-28-2020 18:39:19 CDT by John Vallejo M.D. [id number]
[2020-06-27 18:10] VITALS: BP 145/70; PULSE 70; RESP 16; O2SAT 99
[2020-06-27 18:30] LABS: Troponin 5 2HR Delta 0 ABS# (0-10)
[2020-06-29 03:42] LABS: Quest SARS-CoV-2 RNA NOT DETECTED (NOT DETECTED)
== END 2020-06-27 18:11 | disposition home or self-care (01) ==
PROVIDERS: Emergency Provider Emergency Medicine; PCP Internal Medicine
DX: R05 Cough (principal); F41.9 Anxiety disorder, unspecified; Z79.82 Long term (current) use of aspirin; I10 Essential (primary) hypertension
CPT/HCPCS: 12345; 36415; 71045; 80053; 84484; 85025; 86140; 87635; 93005; 99283; J7040

== ENCOUNTER 2020-07-21 12:48 | Outpatient (CLI) | payer MEDICARE, SELFPAY ==
--- NOTE | 2020-07-21 13:21 | MRR_ITS ---
PROCEDURE INFORMATION: Exam: MR Head Without and With Contrast; Internal Auditory Canals Exam date and time: 07/21/2020 1:22 PM Age: 60 years old Clinical indication: Other: Snsmrl hear loss, ; prior surgery; Surgery type: Bilat 8th cranial nerve; Additional info: Snsmrl hear loss, uni, left ear, w unrestr spencer cnra side TECHNIQUE: Imaging protocol: MR of the head without and with intravenous contrast. Exam focused on the internal auditory canals. 3D rendering (Not supervised by radiologist): MIP and/or 3D reconstructed images were created by the technologist. Contrast material: PROHANCE; Contrast volume: 13 ml; Contrast route: INTRAVENOUS (IV); COMPARISON: MR head wo/w con [id number] 04/06/2020 10:20 AM FINDINGS: Brain: Minimal signal changes in the periventricular white matter are nonspecific but statistically most likely reflect chronic microvascular ischemic disease. There is no evidence of an acute ischemic event. There is no evidence of intracranial hemorrhage. There is no evidence of a parenchymal mass. No cerebellopontine angle mass is seen. No abnormal extra-axial fluid collections are identified. Ventricles: The ventricles are normal in size and configuration. Sinuses: The visualized sinuses are unremarkable. Mastoid air cells: Minimal right mastoid effusion. Orbits: The orbits are normal. MR/MR iac's wo/w con* [id number] IMPRESSION: 1. No acute ischemia, mass or hemorrhage identified. 2. Minimal signal changes in the periventricular white matter are nonspecific but statistically most likely reflect chronic microvascular ischemic disease.
[2020-07-21 16:12] LABS: Alanine Aminotransferase 25 U/L (0-33); Albumin Level 4.4 g/dL (3.5-5.2); Alkaline Phosphatase 98 IU/L (35-105); Anion Gap 11.5 (5-19); Aspartate Amino Transferase 25 U/L (0-32); Blood Urea Nitrogen 9 mg/dL (6-20); C Reactive Protein 2.1 mg/L (0.0-4.9); Calcium 9.3 mg/dL (8.5-10.5); Carbon Dioxide 32 mmol/L (22-29); Chloride 101 mmol/L (98-107); Globulin 2.6 g/dL (1.3-4.6); Glomerular Filtration Rate 126.7 mL/min (90-130); Glucose 87 mg/dL (65-115); Osmolality Calculated 288 mOsm/kg (285-295); Potassium 4.5 mmol/L (3.5-5.1); Sodium 140 mmol/L (136-145); Total Bilirubin 0.3 mg/dL (0.15-1.2)
[2020-07-21 16:31] LABS: Erythrocyte Sedimentation Rate 16 mm/hr (0-15)
[2020-07-22 13:07] LABS: Basophils # 0.1 10^3/uL (0.0-0.1); Basophils % 0.7 %; Eosinophils # 0.4 10^3/uL (0.0-0.8); Eosinophils % 5.9 %; Hematocrit 43.1 % (37.0-47.0); Hemoglobin 13.1 g/dL (11.5-15.3); Lymphocytes # 1.7 10^3/uL (0.8-4.8); Lymphocytes % 23.9 %; Mean Corpuscular HGB Conc 30.4 g/dL (30.0-36.0); Mean Corpuscular Hemoglobin 27.5 pg (28.0-34.0); Mean Corpuscular Volume 90.5 fL (81-99); Mean Platelet Volume 11.4 fL (7.4-10.4); Monocytes # 0.4 10^3/uL (0.2-0.9); Monocytes % 6.2 %; Neutrophils % 63.2 %; Nucleated Red Blood Cells % 0 %; Platelet Count 303 10^3/cmm (130-400); Red Blood Count 4.76 10^6/uL (4.1-5.3); Red Cell Distribution Width 13.4 % (12.1-15.1)
[2020-07-25 10:52] LABS: Anti-Double Strand DNA AB 1 IU/mL; Anti-Nuclear Antibody Screen NEGATIVE (NEGATIVE); JO-1 Antibody <1.0 NEG AI (<1.0 NEG); SCL 70 <1.0 NEG AI (<1.0 NEG); SS A Ro Sjogrens Antibody <1.0 NEG AI (<1.0 NEG); SS-B/LA IGG <1.0 NEG AI (<1.0 NEG)
[2020-07-25 17:08] LABS: Cyclic Citrullinated Peptide <16 UNITS
[2020-07-26 15:48] LABS: Alternaria Alternata (M6) Ige <0.10 kU/L; Alternaria Class 0; Bermuda Class 0; Bermuda Grass (G2) Ige <0.10 kU/L; Cat Dander (E1) Ige <0.10 kU/L; Cat Dander Class 0; Common Ragweed (Short) (W1) Ig <0.10 kU/L; D. Farinae Class 0; Dermatophagoides Class 0; Dermatophagoides Farinae (D2) <0.10 kU/L; Dermatophagoides Pteronyssinus <0.10 kU/L; Dog Dander (E5) Ige <0.10 kU/L; Dog Dander Class 0; Elm (T8) Ige <0.10 kU/L; Elm Class 0; English Plantain (W9) Ige <0.10 kU/L; English Plantain Class 0; House Dust (Greer) (H1) Ige <0.10 kU/L; House Dust (Hollister- Stier) <0.10 kU/L; House Dust Class 0; Immunoglobulin E 4 kU/L (<OR=114); Immunoglobulin E 5 kU/L (<OR=114); Johnson Grass (G10) Ige <0.10 kU/L; Johnson Grass Cl 0; June Grass Class 0; June Grass(Kentucky Blue) (G8) <0.10 kU/L; Lamb'S Quarters (Goose Foot) <0.10 kU/L; Lamb'S Quarters Class 0; Maple (Box Elder) (T1) Ige <0.10 kU/L; Maple Class 0; Meadow Fescue (G4) Ige <0.10 kU/L; Meadow Fescue Class 0; Mucor Racemosus Class 0; Oak (T7) Ige <0.10 kU/L; Oak Class 0; Orchard Grass (Cocksfoot) (G3) <0.10 kU/L; Penicillium Class 0; Penicillium Notatum (M1) Ige <0.10 kU/L; Perennial Rye Grass (G5) Ige <0.10 kU/L; Perennial Rye Grass Class 0; Ragweeed Class 0; Rough Marsh Elder (W16) Ige <0.10 kU/L; Rough Marsh Elder Class 0; Sweet Vernal Class 0; Sweet Vernal Grass (G1) Ige <0.10 kU/L; Timothy Grass (G6) Ige <0.10 kU/L; Timothy Grass Class 0
[2020-07-28 19:52] LABS: Aspergillus Fumigatus, Igg Ab, 5.6 mg/L (<=102)
[2020-07-31 02:52] LABS: Smooth Muscle Ab Screen NEGATIVE (NEGATIVE)
== END 2020-07-21 12:49 | disposition home or self-care (01) ==
LOC: RADSHAW 12:52
PROVIDERS: Internal Medicine Pulmonary Disease; PCP Internal Medicine; Visit Provider Specialist
DX: H90.42 Sensorineural hearing loss, unilateral, left ear, with unrestricted hearing on the contralateral side (principal); R06.02 Shortness of breath; J45.909 Unspecified asthma, uncomplicated; R21 Rash and other nonspecific skin eruption
CPT/HCPCS: 70553; 80053; 82785; 83516; 85025; 85651; 86003; 86038; 86140; 86225; 86235; 86431

== ENCOUNTER → 2020-08-04 07:53 | Outpatient (BNVA) | payer MEDICARE, SELFPAY | PROVIDERS: PCP Internal Medicine; Visit Provider Internal Medicine Pulmonary Disease | DX: Z11.59 Encounter for screening for other viral diseases (principal) | CPT/HCPCS: 87635 ==

== ENCOUNTER 2020-08-08 09:48 | Outpatient (CLI) | payer MEDICARE, SELFPAY ==
--- NOTE | 2020-08-08 13:11 | PFTS_ITS ---
Date of Study:08/08/20 Date of Dictation: 08/09/2020 MECHANICS: Forced vital capacity (FVC) is normal Forced expiratory volume in one second (FEV1) is normal FEV1/FVC is normal FLOW VOLUME LOOP: Normal . LUNG VOLUMES: Total lung capacity (TLC) is mildly reduced. Residual volume (RV) is reduced DIFFUSING CAPACITY FOR CARBON MONOXIDE: Mildly reduced . INTERPRETATION: The pulmonary function tests are restrictive pattern with mild reduction in lung volumes and gas transfer. MTDD
== END 2020-08-08 09:49 | disposition home or self-care (01) ==
LOC: RT 09:50
PROVIDERS: PCP Internal Medicine; Visit Provider Internal Medicine Pulmonary Disease
DX: J45.909 Unspecified asthma, uncomplicated (principal)
CPT/HCPCS: 94010; 94726; 94729

== ENCOUNTER 2020-08-29 09:18 | Outpatient (CLI) | payer MEDICARE, SELFPAY ==
--- NOTE | 2020-08-29 09:23 | CT_ITS ---
WS: [id number] CT CHEST TECHNIQUE: High-resolution Noncontrast CT of the chest with coronal and sagittal reformatted images. High-resolution supine and prone imaging. CLINICAL INFORMATION: shortness of breath with f/h/o ILD COMPARISON: None. DLP: 850.[address] scans at [facility] use at least one of these dose optimization techniques: automat ed exposure control; mA and/or kV adjustment per patient size (includes targeted exams where dose is matched to clinical indication); or iterative reconstruction. FINDINGS: Mild chronic emphysematous changes. No acute pulmonary infiltrates. No evidence of interstitial lung disease or pulmonary fibrosis. No subpleural honeycombing. Subsegmental atelectasis left lower lobe. No focal pneumonia. No consolidation or pleural fluid. Normal thyroid gland. No mediastinal or hilar lymphadenopathy. No axillary lymphadenopathy. Adrenal glands are normal. Prior cholecystectomy. Mild thoracic kyphosis. No significant air trapping . CT/CT chest wo con [id number] IMPRESSION: 1. No evidence of interstitial lung disease. No honeycombing or subpleural fib rosis. 2. No air trapping on the expiratory images. 3. Mild chronic emphysematous changes. 4. No mediastinal or hilar lymphadenopathy. 5. No other significant findings.
== END 2020-08-29 09:19 | disposition home or self-care (01) ==
LOC: RADWPI 09:21
PROVIDERS: Family Provider Internal Medicine; PCP Internal Medicine; Visit Provider Internal Medicine Pulmonary Disease
DX: R06.02 Shortness of breath (principal)
CPT/HCPCS: 71250

== ENCOUNTER 2020-10-12 06:59 | Outpatient (CLI) | payer MEDICARE, SELFPAY ==
[2020-10-12 07:28] VITALS: BMI 23.8
--- NOTE | 2020-10-12 07:55 | ECG_ITS ---
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 Interpretive Statements NAME OF STUDY: LEXISCAN SESTAMIBI STRESS TEST INDICATION: Chest Pain PROCEDURE: At the baseline, the blood pressure was 145/94 mmHg, oxygen saturation 96% with a heart rate of 71 beats per. The electrocardiogram showed normal sinus rhythm, normal axis with normal ST and T's. The Lexiscan was infused over a period of 20 seconds. A total of 0.4 milligrams of Lexiscan was infused. The stress phase was continued for a total of 5 minutes. Heart rate at the end of the stress phase was 87 bpm, oxygen saturation 96% with a blood pressure of 159/91 mmHg. The EKG at the peak infusion revealed sinus rhythm at 87 bpm with no significant ST-T wave changes. The study was terminated due to protocol completion. Sestamibi was injected 20 seconds after the Lexiscan infusion. Blood pressure at the end of the recovery phase was 137/92 mmHg, oxygen saturation 95% with a heart rate of 89 beats per minute. CONCLUSION: 1. Normal EKG response to LexiScan infusion 2. No LexiScan induced chest pain or cardiac arrhythmia. 3. Normal blood pressure and heart rate response. 4. Sestamibi/sestamibi perfusion scan pending; see separate report. Electronically Signed On 10-16-2020 13:16:38 CATECHIST by April Morocho M.D. [id number]
--- NOTE | 2020-10-12 07:55 | NMCV_ITS ---
NM americo perf SPECT r/s* [id number] Alla Woo Age: 60 Gender: F : 1960 Exam Date: 10/12/2020 07:55 Ordering Phys: John Vallejo M.D ([email or web address]) Technologist: JG Hodges Exam Location: [facility] Indications: Chest pain STRESS TEST Please see separate stress test report in [facility] for full findings IMAGE PROTOCOL Rest/Stress 1 Lexiscan Day Radiopharmaceutical Dose (mCi) Administration Site Administered by Rest: Tc-99m 10.9 IV JG Hodges Sestamibi Stress:Tc-99m 33.0 IV JG Hodges Sestamibi Rest: 10/12/2020 60 Discovery 630 Stress: 10/12/2020 60 Discovery 630 0.4mg Lexiscan. Images obtained in supine and prone position. SPECT RESULTS Technical Quality: Good Raw Data Analysis: Normal Image Corrections: No attenuation or motion correction applied Summed Stress Score: 0 Summed Rest Score: 0 Summed Difference Score: 0 PERFUSION FINDINGS SPECT images demonstrate homogeneous tracer distribution throughout the myocardium. FUNCTIONAL RESULTS (calculated via Gated SPECT) Stress Image LV EF (%): 91 Stress EDV (mL):47 TID: 0.91 Stress ESV (mL):4 Rest Image LV EF (%): 91 FUNCTIONAL FINDINGS: Left ventricle function is hyperdynamic IMPRESSIONS Myocardial perfusion imaging is normal and low probability for obstructive coronary artery disease. EKG segment will be documented separately. Yue Ramirez MD (Electronically Signed) Final Date: 12 October 2020 16:59 S
[2020-10-12] MEDS: regadenoson 0.4 Mg/5 ml Syringe IVP (09:21)
[2020-10-12 10:01] LABS: Glucose Point of Care 116 mg/dL (70-110)
[2020-10-12 10:05] VITALS: BP 137/92; PULSE 88
== END 2020-10-12 07:00 | disposition home or self-care (01) ==
PROVIDERS: Family Provider Internal Medicine; PCP Internal Medicine; Visit Provider Internal Medicine
DX: R07.9 Chest pain, unspecified (principal)
CPT/HCPCS: 36416; 78452; 82962; 93017; A9500; J2785

== ENCOUNTER 2020-10-12 10:09 | Emergency (ER) | payer MEDICARE, SELFPAY ==
--- NOTE | 2020-10-12 10:11 | ECG_ITS ---
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 Measurements Intervals [place] Rate: 80 P: 41 MO: 111 QRS: 35 QRSD: 74 T: 17 QT: 382 QTc: 442 Interpretive Statements SINUS RHYTHM WITH SHORT MO INTERVAL Compared to ECG 06/27/2020 17:36:03 Short MO interval now present Sinus arrhythmia no longer present Electronically Signed On 10-12-2020 21:23:07 TIPPLE BOSS by April Morocho M.D. [id number]
[2020-10-12 10:12] VITALS: BP 145/94; PULSE 87; RESP 18; TEMP 36.6; O2SAT 98; BMI 24.6
--- NOTE | 2020-10-12 10:12 | W.ED.DIZZY ---
HPI - Dizziness General: Chief Complaint: Dizziness Stated Complaint: syncopal fall Time Seen by Provider: 10/12/20 10:10 Source: patient Mode of arrival: ambulatory Limitations: no limitations History of Present Illness: HPI Narrative: 60-year-old female had a rapid response called on her today. She is getting a Lexiscan stress test and just received the medicine. She states she started to feel lightheaded having some palpitations. She denies any chest pain before or after the event. States she is feeling improved now. She was tachycardic initially and heart rate is now 85 and blood pressure is normal. Denies any worsening improving factors. Associated symptoms: Reports palpitations; Denies chills, nausea or vomiting Review of Systems Const: Denies: fever(s), chills, body aches or change in appetite Eyes: Denies: blurry vision or eye discomfort ENMT: Denies: throat pain or dental pain Card: Reports: palpitations Resp: Denies: dyspnea GI: Denies: abdominal pain, nausea, vomiting or diarrhea : Denies: dysuria Musc: Denies: neck pain or back pain Skin/Breast: Denies: rash Neuro: Reports: dizziness Psych: Denies: depression Tyrel/Lymph: Denies: easy bruising All/Imm: Denies: urticaria PFSH ED PFSH: Medical History BPPV (benign paroxysmal positional vertigo) Depression Fibromyalgia Hypertension Metabolic encephalopathy Normal colonoscopy Palpitations Surgical History H/O ovarian cystectomy Hx of cholecystectomy S/P brain surgery As per the patient she has had decompressive surgeries for 8th nerve decompression for vertigo Status post right breast lumpectomy Family History Other Heart disorder Social History Smoking and tobacco status: never smoked Second hand smoke exposure: Yes Smoking risk assessment/counseling performed?: No Alcohol intake: never Lives independently: Yes Household members: spouse Housing: House Marital status: Current occupational status: disabled Pets and animals: No History of recent travel: No Current gender identity: Female Physical Exam Const: COMMON NORMALS: no acute distress, patient oriented x3 and healthy appearing HENMT: COMMON NORMALS: normocephalic and atraumatic HEAD & SCALP: normocephalic and atraumatic Eye: COMMON NORMALS: Equal, round and reactive pupils present and EOMs intact bilaterally PUPIL: Yes Equal, round and reactive pupils present Neck/C-Spine: COMMON NORMALS: full ROM and supple Chest: COMMONS NORMALS: normal inspection of the chest and normal palpation of entire chest wall Resp: COMMON NORMALS: normal respiratory effort, No retractions, No use of accessory muscles and clear to auscultation bilaterally AUSCULTATION: clear to auscultation bilaterally Cardio: COMMON NORMALS: regular rate, regular rhythm and No murmurs present (Cardio) RATE: regular rate RHYTHM: regular rhythm GI: COMMON NORMALS: Normal to inspection, nondistended, normoactive bowel sounds present, Soft to palpation, non-tender and no masses PALPATION: Yes Soft to palpation Extremity: COMMON NORMALS: normal to inspection and full ROM Neuro: COMMON NORMALS: patient oriented x3, moves all extremities and no focal motor deficits Psych: COMMON NORMALS: mental status grossly normal, Normal thought process present and cooperative THOUGHT PROCESS: Normal thought process present Skin: COMMON NORMALS: no rashes or lesions noted and no wounds GENERAL SKIN EXAM: no rashes or lesions noted Course Vital Signs: Vital signs: Vital Signs Temperature 97.9 F 10/12/20 10:12 Pulse Rate 71 10/12/20 11:58 Respiratory Rate 18 10/12/20 11:58 Blood Pressure 116/80 10/12/20 11:58 Pulse Oximetry 99 10/12/20 11:58 MDM - Dizziness MDM Narrative: Medical decision making narrative: Patient presents with a near syncopal event. She is well-appearing here and feels much improved. I believe this is likely from the medication for stress test. Her lab work and EKG here are normal. She did finish her stress test and is to follow-up with her ply splicer and return if worsening. She understands and agrees to plan. Lab Data: Labs: Lab Results 10/12/20 10/12/20 10/12/20 Range/Units 11:42 11:42 11:42 WBC 11.4 H (4.0-10.0) 10^3/ uL RBC 4.96 (4.1-5.3) 10^6/u L Hgb 13.9 (11.5-15.3) g/dL Hct 44.7 (37.0-47.0) % MCV 90.1 (81-99) fL MCH 28.0 (28.0-34.0) pg MCHC 31.1 (30.0-36.0) g/dL RDW 14.0 (12.1-15.1) % Plt Count 335 (130-400) 10^3/c mm MPV 9.9 (7.4-10.4) fL Neut % (Auto) 86.8 % Lymph % (Auto) 9.3 % Merrick % (Auto) 3.4 % Eos % (Auto) 0.0 % Baso % (Auto) 0.2 % Neut # (Auto) 9.88 H (1.8-7.7) 10^3/u L Lymph # (Auto) 1.1 (0.8-4.8) 10^3/u L Merrick # (Auto) 0.4 (0.2-0.9) 10^3/u L Eos # (Auto) 0.0 (0.0-0.8) 10^3/u L Baso # (Auto) 0.0 (0.0-0.1) 10^3/u L Nucleated RBC % (a uto) 0 % Nucleated RBCs # 0.0 /100WBC Sodium 140 (136-145) mmol/L Potassium 4.3 (3.5-5.1) mmol/L Chloride 102 (98-107) mmol/L Carbon Dioxide 30 H (22-29) mmol/L Anion Gap 12.3 (5-19) BUN 15 (6-20) mg/dL Creatinine 0.6 (0.5-0.9) mg/dL GFR Calculation 102.7 (90-130) mL/min Glucose 130 H (65-115) mg/dL Calculated Osmolal ity 293 (285-295) mOsm/k g Calcium 9.8 (8.5-10.5) mg/dL Total Bilirubin 0.5 (0.15-1.2) mg/dL AST 16 (0-32) U/L ALT 12 (0-33) U/L Alkaline Phosphata se 74 (35-105) IU/L Troponin T Baselin e 10 (0-10) ng/L Total Protein 6.3 L (6.6-8.7) g/dL Albumin 4.4 (3.5-5.2) g/dL Globulin 1.9 (1.3-4.6) g/dL EKG Data^: EKG 1: Attestation: I personally reviewed and interpreted this EKG as follows: EKG interpretation date: 10/12/20 EKG interpretation time: 10:21 Interpretation: nsr hr 8- with no st or t wave abnormalities qrs 74 qtc 418 Discharge Plan Discharge Patient Disposition: Home Clinical Impression: Near syncope Condition: Stable Prescriptions: No Action citalopram 20 mg tablet 20 mg PO DAILY@09 RF: 0 aspirin 81 mg tablet,delayed release (DR/EC) 81 mg PO DAILY@09 RF: 0 prednisone 10 mg tablet 10 mg PO DAILY Qty: 60 RF: 0 hydroxyzine HCl 25 mg tablet 25 mg PO BEDTIME PRN (Reason: itching) RF: 0 diazepam 10 mg tablet 5 mg PO TID@ PRN (Reason: Anxiety) RF: 0 duloxetine 60 mg capsule,delayed release(DR/EC) 60 mg PO DAILY@09 RF: 0 Spiriva with HandiHaler 18 mcg Capsule, W/Inhalation Device 2 cap INHALATION DAILY@09 RF: 0 Discharge Orders: Discharge ED (Routine); Ordered 10/12/20 Ordered By: Alexsandra Us Referrals: Antwan Soni DO [Primary Care Provider] - Discharge Diet: Advance as tolerated Discharge Activity: Resume usual activity Patient Instructions: Near Syncope (ED) Coding Level of Care Code ED Vice President & General Manager [employer] for Chg Fwd Exam Comprehensive
[2020-10-12 10:25] VITALS: BP 145/94; PULSE 78; RESP 18; O2SAT 96
[2020-10-12] MEDS: sodium chloride 0.9% 1,000 ML 999 ML IV (11:49)
[2020-10-12 11:50] LABS: Basophils % 0.2 %; Hematocrit 44.7 % (37.0-47.0); Hemoglobin 13.9 g/dL (11.5-15.3); Lymphocytes # 1.1 10^3/uL (0.8-4.8); Lymphocytes % 9.3 %; Mean Corpuscular HGB Conc 31.1 g/dL (30.0-36.0); Mean Corpuscular Volume 90.1 fL (81-99); Mean Platelet Volume 9.9 fL (7.4-10.4); Monocytes # 0.4 10^3/uL (0.2-0.9); Monocytes % 3.4 %; Neutrophils # 9.88 10^3/uL (1.8-7.7); Neutrophils % 86.8 %; Nucleated Red Blood Cells % 0 %; Platelet Count 335 10^3/cmm (130-400); Red Blood Count 4.96 10^6/uL (4.1-5.3); White Blood Count 11.4 10^3/uL (4.0-10.0)
[2020-10-12 11:58] VITALS: BP 116/80; PULSE 71; RESP 18; O2SAT 99
[2020-10-12 12:08] LABS: Alanine Aminotransferase 12 U/L (0-33); Albumin Level 4.4 g/dL (3.5-5.2); Alkaline Phosphatase 74 IU/L (35-105); Anion Gap 12.3 (5-19); Aspartate Amino Transferase 16 U/L (0-32); Blood Urea Nitrogen 15 mg/dL (6-20); Calcium 9.8 mg/dL (8.5-10.5); Carbon Dioxide 30 mmol/L (22-29); Chloride 102 mmol/L (98-107); Globulin 1.9 g/dL (1.3-4.6); Glomerular Filtration Rate 102.7 mL/min (90-130); Glucose 130 mg/dL (65-115); Osmolality Calculated 293 mOsm/kg (285-295); Potassium 4.3 mmol/L (3.5-5.1); Sodium 140 mmol/L (136-145); Total Bilirubin 0.5 mg/dL (0.15-1.2); Total Protein 6.3 g/dL (6.6-8.7)
[2020-10-12 12:11] LABS: Troponin(5th) Baseline 10 ng/L (0-10)
[2020-10-12 12:28] VITALS: BP 130/73; PULSE 70; RESP 18; O2SAT 99
== END 2020-10-12 12:29 | disposition home or self-care (01) ==
PROVIDERS: Emergency Provider Emergency Medicine; PCP Internal Medicine
DX: R55 Syncope and collapse (principal); Z79.82 Long term (current) use of aspirin; I10 Essential (primary) hypertension; Z77.22 Contact with and (suspected) exposure to environmental tobacco smoke (acute) (chronic)
CPT/HCPCS: 12345; 80053; 84484; 85025; 93005; 99282; 99283; J7030

== ENCOUNTER 2020-11-30 12:52 | Outpatient (CLI) | payer MEDICARE, SELFPAY ==
--- NOTE | 2020-11-30 13:06 | XR_ITS ---
WS: [id number] Exam: XR chest 2V* [id number] Date/Time of Exam: 11/30/2020 1:17 PM Reason For Exam: rule out pneumonia Comparison 06/27/2020. The lungs are hyperinflated and clear. Normal cardiomediastinal structures and bony elements. No pleu ral effusions. Right suprahilar pulmonary scarring. This is stable in appearance. XR/XR chest 2V* [id number] IMPRESSION: 1. No acute cardiopulmonary finding. 2. Pulmonary hyperinflation. Chronic right suprahilar changes.
== END 2020-11-30 12:53 | disposition home or self-care (01) ==
PROVIDERS: PCP Internal Medicine; Visit Provider Internal Medicine Pulmonary Disease
DX: J18.9 Pneumonia, unspecified organism (principal)
CPT/HCPCS: 71046

== ENCOUNTER → 2021-01-12 13:26 | Outpatient (BNVA) | payer MEDICARE, SELFPAY | PROVIDERS: PCP Internal Medicine; Visit Provider Psychiatry & Neurology Psychiatry | DX: F41.1 Generalized anxiety disorder (principal); F33.2 Major depressive disorder, recurrent severe without psychotic features | CPT/HCPCS: 99204 ==

== ENCOUNTER → 2021-02-08 15:48 | Outpatient (BNVA) | payer MEDICARE, SELFPAY | PROVIDERS: PCP Internal Medicine; Visit Provider Psychiatry & Neurology Psychiatry | DX: F33.2 Major depressive disorder, recurrent severe without psychotic features (principal); F41.1 Generalized anxiety disorder | CPT/HCPCS: 99214 ==

== ENCOUNTER 2021-07-10 22:11 | Emergency (ER) | payer MEDICARE, SELFPAY ==
[2021-07-10 22:30] VITALS: BP 118/79; PULSE 92; RESP 20; TEMP 37.3; O2SAT 94; BMI 23.0
--- NOTE | 2021-07-10 23:47 | ED_ITS ---
HPI - General Adult General: Chief complaint: Abdominal Pain Stated complaint: n/v x 2 days Time Seen by Provider: 07/10/21 23:30 History of Present Illness: HPI narrative: Patient complains about feeling good the last few days. She has had some episodes of nausea and vomiting. Also has had a headache photophobia muscle aches diarrhea and general discomfort. 2 kids that live next door to her worsening from school for Covid exposure and those are their kids. She feels is possible she could have got Covid even though she has had both vaccinations. Is slowly being weaned off diazepam per Dr. Soni. Patient had a history of 3 brain surgeries. Onset (ago): day(s) Associated symptoms: Reports cough, decreased appetite, fevers/chills, headache(s), nausea, vomiting, weakness and other (Myalgia); Deny chest pain, dyspnea or rash Review of Systems Const: Reports: chills and body aches; Denies: fever(s) Eyes: Denies: change in vision or blurry vision ENMT: Denies: throat pain or nasal congestion Card: Denies: chest pain or dyspnea on exertion Resp: Reports: non-productive cough; Denies: dyspnea or productive cough GI: Reports: nausea and vomiting : Denies: flank pain Musc: Denies: extremity pain Skin/Breast: Denies: rash Neuro: Reports: headache(s) Psych: Denies: anxiety or depression Tyrel/Lymph: Denies: easy bruising PFSH ED PFSH: Medical History BPPV (benign paroxysmal positional vertigo) Depression Fibromyalgia Hypertension Metabolic encephalopathy Normal colonoscopy Palpitations Surgical History H/O ovarian cystectomy Hx of cholecystectomy S/P brain surgery As per the patient she has had decompressive surgeries for 8th nerve decompression for vertigo Status post right breast lumpectomy Family History Other Heart disorder Social History Smoking and tobacco status: never smoked Second hand smoke exposure: Yes Smoking risk assessment/counseling performed?: Yes Alcohol intake: never Lives independently: Yes Household members: spouse Housing: House Marital status: Current occupational status: disabled Pets and animals: No History of recent travel: No Current gender identity: Female Physical Exam Const: COMMON NORMALS: no acute distress, average body habitus and patient or iented x3 HENMT: COMMON NORMALS: normocephalic HEAD & SCALP: normal to inspection and normocephalic FACE & SINUS: normal facial exam Eye: COMMON NORMALS: conjunctivae normal GENERAL EYE: appearance normal, both eyes and all related structures CONJUNCTIVA: Yes conjunctivae normal Neck/C-Spine: COMMON NORMALS: no JVD Chest: COMMONS NORMALS: normal inspection of the chest Resp: COMMON NORMALS: normal respiratory effort and clear to auscultation bilaterally AUSCULTATION: clear to auscultation bilaterally Cardio: COMMON NORMALS: no JVD, regular rate and regular rhythm RATE: regular rate RHYTHM: regular rhythm GI: COMMON NORMALS: Soft to palpation INSPECTION: Yes normal to inspection AUSCULTATION: Yes normoactive bowel sounds PALPATION: Yes Soft to palpation and Yes Tenderness to palpation present (GI) Details: LUQ Extremity: COMMON NORMALS: normal to inspection and full ROM Neuro: COMMON NORMALS: patient oriented x3 Course Vital Signs: Vital signs: Vital Signs Temperature 99.2 F 07/11/21 01:00 Pulse Rate 68 07/11/21 01:00 Respiratory Rate 18 07/11/21 01:00 Blood Pressure 141/90 07/11/21 01:00 Pulse Oximetry 95 07/11/21 01:00 MDM - General Adult MDM Narrative: Medical decision making narrative: Covid positive. 7 days out from symptom onset. Monoclonal antibody scheduled. Patient agrees to take. Zofran given for nausea. Lab Data: Labs: Lab Results 07/10/21 07/10/21 07/10/21 Range/Units 23:11 23:11 23:56 WBC Cancelled Corrected WBC Cancelled RBC Cancelled Hgb Cancelled Hct Cancelled MCV Cancelled MCH Cancelled MCHC Cancelled RDW Cancelled Plt Count Cancelled MPV Cancelled Gran % Cancelled Neut % (Auto) Cancelled Lymph % (Auto) Cancelled [place] % (Auto) Cancelled Eos % (Auto) Cancelled Baso % (Auto) Cancelled Neut # (Auto) Cancelled Lymph # (Auto) Cancelled [place] # (Auto) Cancelled Eos # (Auto) Cancelled Baso # (Auto) Cancelled Absolute Gran (aut o) Cancelled Nucleated RBC % (a uto) Cancelled Nucleated RBCs # Cancelled Sodium 142 (136-145) mmol/L Potassium 3.6 (3.5-5.1) mmol/L Chloride 103 (98-107) mmol/L Carbon Dioxide 25 (22-29) mmol/L Anion Gap 17.6 (5-19) BUN 13 (6-20) mg/dL Creatinine 0.6 (0.5-0.9) mg/dL GFR Calculation 102.3 (90-130) mL/min Glucose 106 (65-115) mg/dL Calculated Osmolal ity 295 (285-295) mOsm/k g Calcium 9.6 (8.5-10.5) mg/dL Total Bilirubin 0.3 (0.15-1.2) mg/dL AST 15 (0-32) U/L ALT 9 (0-33) U/L Alkaline Phosphata se 107 H (35-105) IU/L Total Protein 6.9 (6.6-8.7) g/dL Albumin 4.0 (3.5-5.2) g/dL Globulin 2.9 (1.3-4.6) g/dL Lipase 43 (13-60) U/L SARS-CoV-2 Ag (Rap id) Positive H (Negative) 07/11/21 Range/Units 00:08 WBC 12.2 H Corrected WBC RBC 4.44 Hgb 12.8 Hct 40.0 MCV 90.1 MCH 28.8 MCHC 32.0 RDW 12.9 Plt Count 293 MPV 10.1 Gran % Neut % (Auto) 67.9 Lymph % (Auto) 19.4 [place] % (Auto) 8.1 Eos % (Auto) 4.1 Baso % (Auto) 0.3 Neut # (Auto) 8.27 H Lymph # (Auto) 2.4 [place] # (Auto) 1.0 H Eos # (Auto) 0.5 Baso # (Auto) 0.0 Absolute Gran (aut o) Nucleated RBC % (a uto) 0 Nucleated RBCs # 0.0 Sodium (136-145) mmol/L Potassium (3.5-5.1) mmol/L Chloride (98-107) mmol/L Carbon Dioxide (22-29) mmol/L Anion Gap (5-19) BUN (6-20) mg/dL Creatinine (0.5-0.9) mg/dL GFR Calculation (90-130) mL/min Glucose (65-115) mg/dL Calculated Osmolal ity (285-295) mOsm/k g Calcium (8.5-10.5) mg/dL Total Bilirubin (0.15-1.2) mg/dL AST (0-32) U/L ALT (0-33) U/L Alkaline Phosphata se (35-105) IU/L Total Protein (6.6-8.7) g/dL Albumin (3.5-5.2) g/dL Globulin (1.3-4.6) g/dL Lipase (13-60) U/L SARS-CoV-2 Ag (Rap id) (Negative) Discharge Plan Discharge Patient Disposition: Home Clinical Impression: COVID-19 Condition: Stable Prescriptions: New Zofran 4 mg tablet 4 mg PO Q8H 3 Days Qty: 9 RF: 0 No Action Incruse Ellipta 62.5 mcg/actuation blister with device 1 inh inhalation DAILY Qty: 30 RF: 3 multivitamin Tablet 1 tab PO DAILY RF: 0 pantoprazole 40 mg tablet,delayed release (DR/EC) 40 mg PO DAILY Qty: 14 RF: 0 aspirin 81 mg tablet,delayed release (DR/EC) 81 mg PO DAILY@09 RF: 0 duloxetine 60 mg capsule,delayed release(DR/EC) 120 mg PO DAILY@09 Qty: 60 RF: 2 buspirone 5 mg tablet 5 mg PO TID Qty: 90 RF: 2 diazepam 10 mg tablet 5 mg PO Q6H PRN (Reason: Anxiety) RF: 0 Discharge Orders: Discharge ED (Routine); Ordered 07/11/21 Ordered By: Zachary Pittman Other Ambulatory Orders: Request for MCA (Routine) Timeframe: 1 Day Facility: [facility] - Location: [facility] Ordered By: Zachary Pittman Referrals: Antwan Soni DO [Primary Care Provider] - Discharge Diet: Usual diet Discharge Activity: Increase activity as tolerated Patient Instructions: Viral Syndrome (ED) Activity Restrictions/Additional Instructions: Follow-up with medical provider as directed. Take medications as prescribed. Return to the ER or your medical provider if condition worsens. Please read and understand discharge instructions. If any questions ask please. If you have severe shortness of breath please return to the ER. Keep scheduled appointment for monoclonal antibody therapy. Coding Level of Care Code ED [place] for Carlos Rollins Exam Comprehensive
[2021-07-10] MEDS: sodium chloride 0.9% 1,000 ML 999 ML IV (23:50)
[2021-07-10] MEDS: ondansetron 2 mg/ML SDV 2 mL 4 MG IVP (23:51)
[2021-07-11 00:12] LABS: Basophils % 0.3 %; Eosinophils # 0.5 10^3/uL (0.0-0.8); Eosinophils % 4.1 %; Hemoglobin 12.8 g/dL (11.5-15.3); Lymphocytes # 2.4 10^3/uL (0.8-4.8); Lymphocytes % 19.4 %; Mean Corpuscular Hemoglobin 28.8 pg (28.0-34.0); Mean Corpuscular Volume 90.1 fl (81-99); Mean Platelet Volume 10.1 fL (7.4-10.4); Monocytes % 8.1 %; Neutrophils # 8.27 10^3/uL (1.8-7.7); Neutrophils % 67.9 %; Nucleated Red Blood Cells % 0 %; Platelet Count 293 10^3/cmm (130-400); Red Blood Count 4.44 10^6/uL (4.1-5.3); Red Cell Distribution Width 12.9 % (12.1-15.1); White Blood Count 12.2 10^3/uL (4.0-10.0)
[2021-07-11 00:13] LABS: Alanine Aminotransferase 9 U/L (0-33); Alkaline Phosphatase 107 IU/L (35-105); Anion Gap 17.6 (5-19); Aspartate Amino Transferase 15 U/L (0-32); Blood Urea Nitrogen 13 mg/dL (6-20); Calcium 9.6 mg/dL (8.5-10.5); Carbon Dioxide 25 mmol/L (22-29); Chloride 103 mmol/L (98-107); Globulin 2.9 g/dL (1.3-4.6); Glomerular Filtration Rate 102.3 mL/min (90-130); Glucose 106 mg/dL (65-115); Lipase 43 U/L (13-60); Osmolality Calculated 295 mOsm/kg (285-295); Potassium 3.6 mmol/L (3.5-5.1); Sodium 142 mmol/L (136-145); Total Bilirubin 0.3 mg/dL (0.15-1.2); Total Protein 6.9 g/dL (6.6-8.7)
[2021-07-11 00:22] LABS: SARS Covid-2 Antigen Positive (Negative)
[2021-07-11 01:00] VITALS: BP 141/90; PULSE 68; RESP 18; TEMP 37.3; O2SAT 95
== END 2021-07-11 01:02 | disposition home or self-care (01) ==
PROVIDERS: Emergency Medicine; Emergency Provider Nurse Practitioner Family; PCP Internal Medicine
DX: U07.1 COVID-19 (principal); Z79.82 Long term (current) use of aspirin; I10 Essential (primary) hypertension; Z77.22 Contact with and (suspected) exposure to environmental tobacco smoke (acute) (chronic)
CPT/HCPCS: 36415; 80053; 83690; 85025; 87426; 96361; 96365; 96374; 99283; J2405; J7030

== ENCOUNTER 2021-07-11 08:01 | Outpatient (CLI) | payer MEDICARE, SELFPAY ==
[2021-07-11 08:30] VITALS: BP 131/75; PULSE 72; RESP 18; TEMP 37.5; O2SAT 98; BMI 22.1
[2021-07-11 09:15] VITALS: BP 128/85; PULSE 63; RESP 18; O2SAT 99
[2021-07-11 10:11] VITALS: BP 140/84; PULSE 74; RESP 18; TEMP 36.3; O2SAT 98
== END 2021-07-11 08:02 | disposition home or self-care (01) ==
PROVIDERS: PCP Internal Medicine; Visit Provider Nurse Practitioner Family
DX: U07.1 COVID-19 (principal)
CPT/HCPCS: 96365

== ENCOUNTER 2021-09-26 11:50 | Emergency (ER) | payer MEDICARE, SELFPAY ==
[2021-09-26 12:10] VITALS: BP 138/88; PULSE 73; RESP 16; TEMP 36.7; O2SAT 99
--- NOTE | 2021-09-26 12:30 | ED_ITS ---
Documented by User: Loreto Ojeda PA-C 09/26/21 16:15 HPI - Headache General: Chief Complaint: Headache Stated Complaint: [place] [facility] [place] Time Seen by Provider: 09/26/21 12:29 Source: patient Mode of arrival: wheelchair Limitations: no limitations History of Present Illness: HPI Narrative: 61-year-old female presents to the ER today for a headache. Patient reports this began Friday when she woke up. Patient reports this is the worst headache of her life. She lives with a headache every day but this is much different. Patient reports photophobia and nausea/vomiting that started Friday with a headache. Patient reports typically she can go to sleep and sleep a headache off but this is much different. Patient reports she feels terrible with this 1. She denies any recent illnesses or anything that could have triggered this headache. Patient reports it is behind her eyes and across her entire head. Denies any radiation down the neck. Patient denies any dizziness, fever, chills, chest pain, shortness of breath. Patient has taken home meds and [id number] meds with no improvement. Patient reports she has been unable to eat since Friday. MD elicited complaint: headache Onset (ago): day(s) (2) Onset description: suddenly Location: diffuse Severity: severe Pain scale (0-10): 10 Quality & Timing: aching, throbbing, sharp and worst headache of life Exacerbating factors: exertion, light and noise Relieving factors: nothing Associated symptoms: Reports nausea and vomiting; Deny chest pain, fever(s) or rash Treatments prior to arrival: acetaminophen and ibuprofen Review of Systems General: Reports: 10 or more systems reviewed and unremarkable except in HPI and below Const: Denies: fever(s), chills or body aches Eyes: Reports: other (photophobia); Denies: change in vision or blurry vision ENMT: Denies: throat pain, nasal discharge or nasal congestion Card: Denies: chest pain or palpitations Resp: Denies: dyspnea, productive cough or wheezing GI: Reports: nausea and vomiting; Denies: abdominal pain, diarrhea or constipation Musc: Denies: neck pain or back pain Skin/Breast: Denies: rash or pruritus Neuro: Reports: headache(s); Denies: dizziness Psych: Denies: anxiety or depression PFSH ED PFSH: Medical History BPPV (benign paroxysmal positional vertigo) Depression Fibromyalgia Hypertension Metabolic encephalopathy Normal colonoscopy Palpitations Surgical History H/O ovarian cystectomy Hx of cholecystectomy S/P brain surgery As per the patient she has had decompressive surgeries for 8th nerve decompression for vertigo Status post right breast lumpectomy Family History Other Heart disorder Social History Smoking and tobacco status: never smoked Second hand smoke exposure: Yes Smoking risk assessment/counseling performed?: Yes Alcohol intake: never Lives independently: Yes Household members: spouse Housing: House Marital status: Current occupational status: disabled Pets and animals: No History of recent travel: No Current gender identity: Female Physical Exam Const: COMMON NORMALS: average body habitus, patient oriented x3 and alert; apparent distress GENERAL APPEARANCE: cooperative; not comfortable HENMT: COMMON NORMALS: normocephalic, atraumatic, TM's normal bilaterally, Normal external nose present, Normal nasal mucous membranes and turbinates present, moist oral mucous membranes and oropharynx normal HEAD & SCALP: normocephalic and atraumatic FACE & SINUS: sinuses nontender NOSE: Normal external nose present and Normal nasal mucous membranes and turbinates present TYMPANIC MEMBRANE: TM's normal bilaterally Eye: COMMON NORMALS: Equal, round and reactive pupils present, EOMs intact bilaterally and conjunctivae normal CONJUNCTIVA: Yes conjunctivae normal PUPIL: Yes Equal, round and reactive pupils present Neck/C-Spine: COMMON NORMALS: full ROM and no lymphadenopathy Resp: COMMON NORMALS: normal respiratory effort, No retractions and clear to auscultation bilaterally AUSCULTATION: clear to auscultation bilaterally Cardio: COMMON NORMALS: regular rate, regular rhythm and No murmurs present (Cardio) RATE: regular rate RHYTHM: regular rhythm GI: COMMON NORMALS: Normal to inspection, nondistended, normoactive bowel sounds present, Soft to palpation and non-tender PALPATION: Yes Soft to palpation Extremity: COMMON NORMALS: normal to inspection and full ROM Neuro: COMMON NORMALS: patient oriented x3, moves all extremities and no focal motor deficits SENSORIUM/ORIENTATION: Yes alert SPEECH: speech normal Psych: COMMON NORMALS: mental status grossly normal, Normal thought process present and cooperative THOUGHT PROCESS: Normal thought process present Skin: COMMON NORMALS: no rashes or lesions noted GENERAL SKIN EXAM: no rashes or lesions noted Course ED course: Patient presents to the ER today with the worst headache of her life. We will get a CT of her head at this time. We will also do lab work and fluids, Toradol, Benadryl, Zofran. Reevaluation(s): Reevaluation #1: Pt reports pain has improved from a 10 to a 7. Time: 15:45 Reevaluation #2: On reevaluation, patient's pain is now to 5. She feels like she is going to be able to go home and take care of this at home. Time: 16:09 Consultations: Consultation #1: Discussed pt with Dr. Kwan who recommends 2 G of Mag and Reglan. If no improvement consider CTA. Vital Signs: Vital signs: Vital Signs Temperature 98.3 F 09/26/21 12:57 Pulse Rate 68 09/26/21 16:35 Respiratory Rate 18 09/26/21 16:35 Blood Pressure 134/80 09/26/21 16:35 Pulse Oximetry 98 09/26/21 16:35 MDM - Headache MDM Narrative: Medical decision making narrative: 61-year-old female presents to the ER today for a headache that has been persistent since Friday. Patient was seen at an outside clinic and sent to the ER given the severity of the headache. Patient has a history of an 8th cranial nerve ablation for vertigo. She has been trying [id number] medications at home however pain has continued to worsen. Patient reports light sensitivity and nausea and vomiting. She has been unable to keep fluids down since Friday. Patient has a history of headaches and lives with them daily however reports this is significantly worse and the worst headache of her life. A CT was performed which was normal and medications given. Patient reported no improvement with initial medications. We did add Reglan and mag which did take patient's pain from a 10 to a 7. We went ahead and performed a CTA after discussion with Dr. Kwan. CTA was also normal. Patient did report improvement from a 7 to a 5 after2 boluses and all medications were in. Patient feels comfortable to go home and take care of herself at home tonight. We did discuss home medications. We will add Zofran as needed for nausea. Recommended Benadryl before bedtime. Patient should alternate Tylenol and Motrin as discussed. Do not exceed 3000 mg daily of Tylenol. Follow-up with PCP in 3 to 5 days. Return to the ER with any new or worsening symptoms. Patient verbalized understanding and is in agreement with this treatment plan. Lab Data: Labs: Lab Results 09/26/21 09/26/21 13:00 13:00 WBC 9.2 10^3/uL 10^3/ uL (4.0-10.0) RBC 5.07 10^6/uL 10^6 /uL (4.1-5.3) Hgb 14.5 g/dL g/dL (11.5-15.3) Hct 44.6 % % (37.0-47.0) MCV 88.0 fl fl (81-99) MCH 28.6 pg pg (28.0-34.0) MCHC 32.5 g/dL g/dL (30.0-36.0) RDW 13.5 % % (12.1-15.1) Plt Count 357 10^3/cmm 10^3 /cmm (130-400) MPV 10.9 fL H fL (7.4-10.4) Neut % (Auto) 67.8 % % Lymph % (Auto) 22.5 % % [place] % (Auto) 6.1 % % Eos % (Auto) 3.0 % % Baso % (Auto) 0.5 % % Neut # (Auto) 6.23 10^3/uL 10^3 /uL (1.8-7.7) Lymph # (Auto) 2.1 10^3/uL 10^3/ uL (0.8-4.8) [place] # (Auto) 0.6 10^3/uL 10^3/ uL (0.2-0.9) Eos # (Auto) 0.3 10^3/uL 10^3/ uL (0.0-0.8) Baso # (Auto) 0.1 10^3/uL 10^3/ uL (0.0-0.1) Nucleated RBC % (a uto) 0 % % Nucleated RBCs # 0.0 /100WBC /100W BC Sodium 137 mmol/L mmol/L (136-145) Potassium 4.0 mmol/L mmol/L (3.5-5.1) Chloride 98 mmol/L mmol/L (98-107) Carbon Dioxide 30 mmol/L H mmol/ L (22-29) Anion Gap 13.0 (5-19) BUN 12 mg/dL mg/dL (6-20) Creatinine 0.6 mg/dL mg/dL (0.5-0.9) GFR Calculation 102.3 mL/min mL/m in (90-130) Glucose 91 mg/dL mg/dL (65-115) Calculated Osmolal ity 283 mOsm/kg L mOs m/kg (285-295) Calcium 9.4 mg/dL mg/dL (8.5-10.5) Total Bilirubin 0.6 mg/dL mg/dL (0.15-1.2) AST 16 U/L U/L (0-32) ALT 13 U/L U/L (0-33) Alkaline Phosphata se 94 IU/L IU/L (35-105) Total Protein 7.3 g/dL g/dL (6.6-8.7) Albumin 4.5 g/dL g/dL (3.5-5.2) Globulin 2.8 g/dL g/dL (1.3-4.6) Imaging Data^: CT Head: Radiologist's impression: [address] [place] [address] CT Scan Report Signed Patient: Alla Woo Unit #: [id number] : 1960 Age/Sex: 61 / F ADM Date: 09/26/21 Loc: ER Room/Bed: Attending Dr: Ordering Provider/Ordering MD: Loreto Ojeda Date of Service: 09/26/21 Procedure(s): CT head wo con* [id number] Accession Number(s): [id number] Report Number: [id number] WS: [email or web address] CT HEAD NONCONTRAST HISTORY: worst headache of her life TECHNIQUE: Contiguous axial imaging performed through the brain in 2.5 mm imaging. Bone and soft tissue windows. Sagittal and coronal reformats reviewed. All CT scans at [facility] use at least one of these dose optimization techniques: automated exposure control; mA and/or kV adjustment per patient size (includes targeted exams where dose is matched to clinical indication); or iterative reconstruction. DLP: 838.85 mGy.cm COMPARISON: 05/19/2020 No acute intracranial hemorrhage, midline shift or mass effect. Mild cerebral and cerebellar atrophy. Tiny lacunar infarct RIGHT caudate head. Ventricles: Normal size with no hydrocephalus. No inferior displacement of the cerebellar tonsils. Paranasal sinuses: As visualized are clear. Mastoid air cells: Well pneumatized. Calvarium and scalp: Bilateral craniotomy defects are noted involving the occipital bone. Hyperostosis frontalis interna. CT/CT head wo con* [id number] IMPRESSION: 1. No acute intracranial hemorrhage or edema. 2. Stable noncontrast head CT since 05/19/2020. Dictated By: Glenda Solomon DO Signed By: Glenda Solomon DO Signed Date/Time: 09/26/21 1351 DD/ [address]: Radiologist's impression: [facility] [address] [place] [address] CT Scan Report Signed Patient: Alla Woo Unit #: [id number] : 1960 [id number] Age/Sex: 61 / F ADM Date: 09/26/21 Loc: ER Room/Bed: Attending Dr: Ordering Provider/Ordering MD: Loreto Ojeda Date of Service: 09/26/21 Procedure(s): CT angio head 71206 Accession Number(s): [id number] Report Number: [id number] WS: [email or web address] CT ANGIOGRAM CEREBRAL ARTERIES HISTORY: worst headache of her life TECHNIQUE: Pre and postcontrast imaging through the brain. CT angiogram is performed of the cerebral arteries. During arterial injection imaging is obtained from the skull vertex to the skull base in 1.25 mm imaging. Coronal and sagittal reformats are submitted. Additional multi planar reformats of the cerebral arteries are submitted, MIP imaging also reviewed. All CT scans at [facility] use at least one of these dose optimization techniques: automated exposure control; mA and/or kV adjustment per patient size (includes targeted exams where dose is matched to clinical indication); or iterative reconstruction. CONTRAST: Omnipaque 350; 75 mL IV. DLP: 596.34 mGy.cm COMPARISON: 09/26/2021 Intracranial vertebral arteries: Dominant LEFT vertebral artery. Both vertebral arteries are patent. 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 No aneurysm or stenosis. Intracranial Internal carotid arteries: Demonstrates no significant stenosis or plaque. Middle cerebral arteries: Small caliber LEFT MCA but it is intact. No aneurysms or occlusions. Anterior cerebral arteries and ACOM: Normal. Posterior cerebral arteries and PCOM's: Normal. Dural venous sinuses are normally enhancing. Mastoid air cells: Normal. Paranasal sinuses: Normal. Calvarium: Bilateral occipital craniotomy site. CT/CT angio head [id number] IMPRESSION: 1. No aneurysm or vascular malformations. 2. No enhancing mass. Dictated By: Glenda Solomon DO Signed By: Glenda Solomon DO Signed Date/Time: 09/26 153 DD/ 1526 Critical Care Time Critical Care Time: Critical Care Time: No Discharge Plan Discharge Patient Disposition: Home Clinical Impression: Migraine headache Qualifiers: Migraine type: unspecified Status migrainosus presence: with status migrainosus Intractability: intractable Qualified Code(s): G43.911 - Migraine, unspecified, intractable, with status migrainosus Condition: Stable Prescriptions: No Action multivitamin Tablet 1 tab PO DAILY RF: 0 pantoprazole 40 mg tablet,delayed release (DR/EC) 40 mg PO DAILY Qty: 14 RF: 0 aspirin 81 mg tablet,delayed release (DR/EC) 81 mg PO DAILY@09 RF: 0 duloxetine 60 mg capsule,delayed release(DR/EC) 120 mg PO DAILY@09 Qty: 60 RF: 2 buspirone 5 mg tablet 5 mg PO TID Qty: 90 RF: 2 Incruse Ellipta 62.5 mcg/actuation blister with device 1 inh inhalation DAILY Qty: 30 RF: 3 diazepam 10 mg tablet 5 mg PO Q6H PRN (Reason: Anxiety) RF: 0 Discharge Orders: Discharge ED (Routine); Ordered 09/26/21 Ordered By: Loreto Ojeda Referrals: Antwan Soni DO [Primary Care Provider] - Discharge Diet: Usual diet Discharge Activity: Resume usual activity Patient Instructions: Opioid Safety Activity Restrictions/Additional Instructions: Take all medications as prescribed. Take Zofran as needed for nausea. Rest recommended. Take 50 mg of Benadryl at bedtime tonight. Increase fluid intake. Follow-up with PCP in 3 to 5 days. Return to the ER with any new or worsening symptoms. Coding Level of Care Code ED Court Abstractor for Chg Fwd Exam Comprehensive Documented by User: Gerry Kwan MD 10/01/21 23:40 HPI - Headache General: Chief Complaint: Headache Stated Complaint: [place] [facility] [place] Time Seen by Provider: 09/26/21 12:29 PFSH ED PFSH: Medical History BPPV (benign paroxysmal positional vertigo) Depression Fibromyalgia Hypertension Metabolic encephalopathy Normal colonoscopy Palpitations Surgical History H/O ovarian cystectomy Hx of cholecystectomy S/P brain surgery As per the patient she has had decompressive surgeries for 8th nerve decompression for vertigo Status post right breast lumpectomy Family History Other Heart disorder Social History Smoking and tobacco status: never smoked Second hand smoke exposure: Yes Smoking risk assessment/counseling performed?: Yes Alcohol intake: never Lives independently: Yes Household members: spouse Housing: House Marital status: Current occupational status: disabled Pets and animals: No History of recent travel: No Current gender identity: Female Course Vital Signs: Vital signs: Vital Signs Temperature 98.3 F 09/26/21 12:57 Pulse Rate 68 09/26/21 16:35 Respiratory Rate 18 09/26/21 16:35 Blood Pressure 134/80 09/26/21 16:35 Pulse Oximetry 98 09/26/21 16:35 MDM - Headache MDM Narrative: Medical decision making narrative: I discussed this case with Loreto HURT. I have reviewed documentation, labs, imaging. Somewhat challenging evaluation given onset of symptoms greater than [address] head negative however given description of symptoms CTA warranted which does not show any aneurysm and this combination is likely satisfactory to place patient at lower risk for subarachnoid hemorrhage. Additionally patient did have symptom improvement though not complete resolution. Strict follow-up plan and return precautions. Gerry Kwan MD Emergency Medicine Lab Data: Labs: Lab Results 09/26/21 09/26/21 13:00 13:00 WBC 9.2 10^3/uL 10^3/ uL (4.0-10.0) RBC 5.07 10^6/uL 10^6 /uL (4.1-5.3) Hgb 14.5 g/dL g/dL (11.5-15.3) Hct 44.6 % % (37.0-47.0) MCV 88.0 fl fl (81-99) MCH 28.6 pg pg (28.0-34.0) MCHC 32.5 g/dL g/dL (30.0-36.0) RDW 13.5 % % (12.1-15.1) Plt Count 357 10^3/cmm 10^3 /cmm (130-400) MPV 10.9 fL H fL (7.4-10.4) Neut % (Auto) 67.8 % % Lymph % (Auto) 22.5 % % [place] % (Auto) 6.1 % % Eos % (Auto) 3.0 % % Baso % (Auto) 0.5 % % Neut # (Auto) 6.23 10^3/uL 10^3 /uL (1.8-7.7) Lymph # (Auto) 2.1 10^3/uL 10^3/ uL (0.8-4.8) [place] # (Auto) 0.6 10^3/uL 10^3/ uL (0.2-0.9) Eos # (Auto) 0.3 10^3/uL 10^3/ uL (0.0-0.8) Baso # (Auto) 0.1 10^3/uL 10^3/ uL (0.0-0.1) Nucleated RBC % (a uto) 0 % % Nucleated RBCs # 0.0 /100WBC /100W BC Sodium 137 mmol/L mmol/L (136-145) Potassium 4.0 mmol/L mmol/L (3.5-5.1) Chloride 98 mmol/L mmol/L (98-107) Carbon Dioxide 30 mmol/L H mmol/ L (22-29) Anion Gap 13.0 (5-19) BUN 12 mg/dL mg/dL (6-20) Creatinine 0.6 mg/dL mg/dL (0.5-0.9) GFR Calculation 102.3 mL/min mL/m in (90-130) Glucose 91 mg/dL mg/dL (65-115) Calculated Osmolal ity 283 mOsm/kg L mOs m/kg (285-295) Calcium 9.4 mg/dL mg/dL (8.5-10.5) Total Bilirubin 0.6 mg/dL mg/dL (0.15-1.2) AST 16 U/L U/L (0-32) ALT 13 U/L U/L (0-33) Alkaline Phosphata se 94 IU/L IU/L (35-105) Total Protein 7.3 g/dL g/dL (6.6-8.7) Albumin 4.5 g/dL g/dL (3.5-5.2) Globulin 2.8 g/dL g/dL (1.3-4.6) Discharge Plan Discharge Patient Disposition: Home Clinical Impression: Migraine headache Qualifiers: Migraine type: unspecified Status migrainosus presence: with status migrainosus Intractability: intractable Qualified Code(s): G43.911 - Migraine, unspecified, intractable, with status migrainosus Condition: Stable Prescriptions: No Action multivitamin Tablet 1 tab PO DAILY RF: 0 pantoprazole 40 mg tablet,delayed release (DR/EC) 40 mg PO DAILY Qty: 14 RF: 0 aspirin 81 mg tablet,delayed release (DR/EC) 81 mg PO DAILY@09 RF: 0 duloxetine 60 mg capsule,delayed release(DR/EC) 120 mg PO DAILY@09 Qty: 60 RF: 2 buspirone 5 mg tablet 5 mg PO TID Qty: 90 RF: 2 Incruse Ellipta 62.5 mcg/actuation blister with device 1 inh inhalation DAILY Qty: 30 RF: 3 diazepam 10 mg tablet 5 mg PO Q6H PRN (Reason: Anxiety) RF: 0 Discharge Orders: Discharge ED (Routine); Ordered 09/26/21 Ordered By: Loreto Ojeda Referrals: Antwan Soni DO [Primary Care Provider] - Discharge Diet: Usual diet Discharge Activity: Resume usual activity Patient Instructions: Opioid Safety Activity Restrictions/Additional Instructions: Take all medications as prescribed. Take Zofran as needed for nausea. Rest recommended. Take 50 mg of Benadryl at bedtime tonight. Increase fluid intake. Follow-up with PCP in 3 to 5 days. Return to the ER with any new or worsening symptoms. Coding Level of Care Code ED Court Abstractor for Rickg Fwd Exam Comprehensive
--- NOTE | 2021-09-26 12:34 | CT_ITS ---
WS: [id number] CT HEAD NONCONTRAST HISTORY: worst headache of her life TECHNIQUE: Contiguous axial imaging performed through the brain in 2.5 mm imaging. Bone and soft tiss ue windows. Sagittal and coronal reformats reviewed. All CT scans at [facility] use at least one of these dose optimization techniques: automated exposure control; mA and/or kV adjustment per pa tient size (includes targeted exams where dose is matched to clinical indication); or iterative recon struction. DLP: 838.85 mGy.cm COMPARISON: 05/19/2020 No acute intracranial hemorrhage, midline shift or mass effect. Mild cerebral and cerebellar atrophy. Tiny lacunar infarct RIGHT caudate head. Ventricles: Normal size with no hydrocephalus. No inferior displacement of the cerebellar tonsils. Paranasal sinuses: As visualized are clear. Mastoid air cells: Well pneumatized. Calvarium and scalp: Bilateral craniotomy defects are noted involving the occipital bone. Hyperostosi s frontalis interna. CT/CT head wo con* [id number] IMPRESSION: 1. No acute intracranial hemorrhage or edema. 2. Stable noncontrast head CT since 05/19/2020.
[2021-09-26 12:57] VITALS: BP 163/97; PULSE 67; RESP 18; TEMP 36.8; O2SAT 100
[2021-09-26] MEDS: sodium chloride 0.9% 1,000 ML 999 ML IV ×2 (13:14→14:23)
[2021-09-26] MEDS: ketorolac 30 mg/mL INJ 15 MG IVP (13:15)
[2021-09-26 13:16] LABS: Basophils # 0.1 10^3/uL (0.0-0.1); Basophils % 0.5 %; Eosinophils # 0.3 10^3/uL (0.0-0.8); Hematocrit 44.6 % (37.0-47.0); Hemoglobin 14.5 g/dL (11.5-15.3); Lymphocytes # 2.1 10^3/uL (0.8-4.8); Lymphocytes % 22.5 %; Mean Corpuscular HGB Conc 32.5 g/dL (30.0-36.0); Mean Corpuscular Hemoglobin 28.6 pg (28.0-34.0); Mean Platelet Volume 10.9 fL (7.4-10.4); Monocytes # 0.6 10^3/uL (0.2-0.9); Monocytes % 6.1 %; Neutrophils # 6.23 10^3/uL (1.8-7.7); Neutrophils % 67.8 %; Nucleated Red Blood Cells % 0 %; Platelet Count 357 10^3/cmm (130-400); Red Blood Count 5.07 10^6/uL (4.1-5.3); Red Cell Distribution Width 13.5 % (12.1-15.1); White Blood Count 9.2 10^3/uL (4.0-10.0)
[2021-09-26] MEDS: diphenhydrAMINE 50 mg/mL SDV 1mL 25 MG IVP (13:17)
[2021-09-26] MEDS: ondansetron 2 mg/ML SDV 2 mL 4 MG IVP (13:18)
[2021-09-26 13:49] LABS: Alanine Aminotransferase 13 U/L (0-33); Albumin Level 4.5 g/dL (3.5-5.2); Alkaline Phosphatase 94 IU/L (35-105); Aspartate Amino Transferase 16 U/L (0-32); Blood Urea Nitrogen 12 mg/dL (6-20); Calcium 9.4 mg/dL (8.5-10.5); Carbon Dioxide 30 mmol/L (22-29); Chloride 98 mmol/L (98-107); Globulin 2.8 g/dL (1.3-4.6); Glomerular Filtration Rate 102.3 mL/min (90-130); Glucose 91 mg/dL (65-115); Osmolality Calculated 283 mOsm/kg (285-295); Sodium 137 mmol/L (136-145); Total Bilirubin 0.6 mg/dL (0.15-1.2); Total Protein 7.3 g/dL (6.6-8.7)
[2021-09-26 13:50] VITALS: BP 172/94; PULSE 66; RESP 16; O2SAT 96
[2021-09-26] MEDS: metoclopramide 5 mg/mL SDV 2 mL 10 MG IVP (14:21)
[2021-09-26] MEDS: magnesium sulfate premix 2 GM/50 ML PIGGYBACK IV (14:24)
--- NOTE | 2021-09-26 15:02 | CT_ITS ---
WS: [id number] CT ANGIOGRAM CEREBRAL ARTERIES HISTORY: worst headache of her life TECHNIQUE: Pre and postcontrast imaging through the brain. CT angiogram is performed of the cerebral arteries. During arterial injection imaging is obtained from the skull vertex to the skull base in 1. 25 mm imaging. Coronal and sagittal reformats are submitted. Additional multi planar reformats of the cerebral arteries are submitted, MIP imaging also reviewed. All CT scans at [facility] use at least one of these dose optimization techniques: automated exposure control; mA and/or kV adjustme nt per patient size (includes targeted exams where dose is matched to clinical indication); or iterat yeimy reconstruction. CONTRAST: Omnipaque 350; 75 mL IV. DLP: 596.34 mGy.cm COMPARISON: 09/26/2021 Intracranial vertebral arteries: Dominant LEFT vertebral artery. Both vertebral arteries are patent. 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 No aneurysm or stenosis. Intracranial Internal carotid arteries: Demonstrates no significant stenosis or plaque. Middle cerebral arteries: Small caliber LEFT MCA but it is intact. No aneurysms or occlusions. Anterior cerebral arteries and ACOM: Normal. Posterior cerebral arteries and PCOM's: Normal. Dural venous sinuses are normally enhancing. Mastoid air cells: Normal. Paranasal sinuses: Normal. Calvarium: Bilateral occipital craniotomy site. CT/CT angio head [id number] IMPRESSION: 1. No aneurysm or vascular malformations. 2. No enhancing mass.
[2021-09-26] MEDS: iohexol 350 mg/mL 100 mL Btl IV (15:15)
[2021-09-26 15:41] VITALS: BP 137/85; PULSE 70; RESP 17; O2SAT 98
[2021-09-26 16:35] VITALS: BP 134/80; PULSE 68; RESP 18; O2SAT 98
== END 2021-09-26 16:38 | disposition home or self-care (01) ==
PROVIDERS: Emergency Provider Physician Assistant; PCP Internal Medicine
DX: G43.911 Migraine, unspecified, intractable, with status migrainosus (principal); Z79.82 Long term (current) use of aspirin; I10 Essential (primary) hypertension; M79.7 Fibromyalgia; F32.A Depression, unspecified
CPT/HCPCS: 70450; 70496; 80053; 85025; 96361; 96365; 96375; 99284; J1200; J1885; J2405; J2765; J3475; J7030; Q9967

== ENCOUNTER 2022-05-23 14:31 | Outpatient (CLI) | payer MEDICARE, SELFPAY ==
--- NOTE | 2022-05-23 14:43 | MM_ITS ---
WS: [email or web address] BILATERAL 3D TOMOSYNTHESIS DIGITAL SCREENING MAMMOGRAPHY WITH CAD CLINICAL INFORMATION: SCREENING HISTORY: Screening mammogram. No current complaints. COMPARISON: July 06, 2014 TECHNIQUE: Bilateral CC and MLO views. FINDINGS: Scattered fibroglandular densities bilaterally. A few incidental tiny punctate calcifications. No jennifer picious focal mass, asymmetry, calcifications, or architectural distortion. No evidence of malignancy . MM/[place] [id number] IMPRESSION: BI-RADS: 2-Benign FOLLOW UP: 1 Year Follow-up Recommend return to annual screening mammography.
--- NOTE | 2022-05-23 14:43 | XR_ITS ---
WS: [email or web address] SCREENING DEXA SCAN [employer] CLINICAL INFORMATION: POSTMENOPAUSAL COMPARISON: None. FINDINGS: The L1-L4 bone mineral density measures 1.052 g/cm2. This corresponds to a T score score of -1.1 and Z score of 0.3. Left femoral neck bone mineral density measures 0.714 g/cm2. This corresponds to a T score of -2.3 an d Z score of -1.3. Right femoral neck bone mineral density measures 0.671 g/cm2. This corresponds to a T score -2.7of an d Z score of -1.6. Mean femoral neck bone mineral density measures 0.693 g/cm2. This corresponds to a T score of -2.5 an d Z score of -1.4. XR/XR DEXA axial skeleton* [id number] IMPRESSION: Osteopenia lumbar spine. Osteoporosis femoral necks. Patient's FRAX calculated 10 year probability for major osteoporotic fracture i s 21.4 % and osteoporotic hip fracture is 5.8%.
== END 2022-05-23 14:32 | disposition home or self-care (01) ==
LOC: RAD 14:33
PROVIDERS: PCP Internal Medicine; Visit Provider Physician Assistant
DX: Z12.31 Encounter for screening mammogram for malignant neoplasm of breast (principal); Z13.820 Encounter for screening for osteoporosis
CPT/HCPCS: 77063; 77067; 77080

== ENCOUNTER 2022-09-09 20:22 | Emergency (ER) | payer MEDICARE, SELFPAY ==
[2022-09-09 20:26] VITALS: BP 170/107; PULSE 69; RESP 18; TEMP 36.9; O2SAT 97; BMI 20.5
--- NOTE | 2022-09-09 20:34 | ECG_ITS ---
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 Measurements Intervals [place] Rate: 73 P: -35 [place]: 77 QRS: 46 QRSD: 76 T: 44 QT: 382 QTc: 422 Interpretive Statements SINUS RHYTHM WITH SHORT WY INTERVAL POSSIBLE RIGHT VENTRICULAR CONDUCTION DELAY [RSR (QR) IN V1/V2] Compared to ECG 10/12/2020 10:21:02 No significant changes Electronically Signed On 09-10-2022 11:59:17 [employer] MECH[employer]ICAL ENGINEER by April Morocho M.D. [email or web address]
--- NOTE | 2022-09-09 21:27 | W.ED.EXTPRO ---
HPI - Extremity Problem General: Chief complaint: Extremity Injury, Upper Stated complaint: Chest Pains Time Seen by Provider: 09/09/22 21:27 History of Present Illness: Ms. Woo is a 62-year-old lady with significant past medical history of hypertension, CVA, recent COVID-19 diagnosis presented to the emergency department due to back pain and shortness of breath. She reports feeling generalized malaise for approximately 1 week associated with typical COVID-19 symptoms however this morning woke up with severe pain in her back between her shoulder blades. Since that time symptoms have persisted. Worse with movement and palpation. Sharp and spasming quality. Some associated worsening shortness of breath. There is radiation to the left arm. Overall course has persisted. No other specific changes in health, exacerbating, or alleviating factors identified. Onset (ago): hour(s) Pain Consistency: constant Location: other Quality: sharp and other Exacerbating factors: walking, palpation and other Associated symptoms: Reports short of breath Context: recent illness Review of Systems General: Reports: 10 or more systems reviewed and unremarkable except in HPI and below PFSH ED PFSH: Medical History BPPV (benign paroxysmal positional vertigo) Depression Fibromyalgia Hypertension Metabolic encephalopathy Normal colonoscopy Palpitations Surgical History H/O ovarian cystectomy Hx of cholecystectomy S/P brain surgery As per the patient she has had decompressive surgeries for 8th nerve decompression for vertigo Status post right breast lumpectomy Family History Other Heart disorder Social History Smoking and tobacco status: never smoked Second hand smoke exposure: Yes Smoking risk assessment/counseling performed?: Yes Alcohol intake: never Lives independently: Yes Household members: spouse Housing: House Marital status: Current occupational status: disabled Pets and animals: No History of recent travel: No Current gender identity: Female Physical Exam Const: COMMON NORMALS: alert GENERAL APPEARANCE: cooperative and well developed HENMT: COMMON NORMALS: normocephalic and atraumatic HEAD & SCALP: normocephalic and atraumatic Eye: COMMON NORMALS: conjunctivae normal CONJUNCTIVA: Yes conjunctivae normal SCLERA: sclerae normal Neck/C-Spine: COMMON NORMALS: supple GENERAL: Yes trachea midline Resp: COMMON NORMALS: clear to auscultation bilaterally EFFORT & INSPECTION: Yes able to speak in complete sentences AUSCULTATION: clear to auscultation bilaterally Cardio: COMMON NORMALS: regular rate and regular rhythm RATE: regular rate RHYTHM: regular rhythm GI: COMMON NORMALS: Soft to palpation PALPATION: Yes Soft to palpation and No Tenderness to palpation present (GI) PERCUSSION: normal to percussion Back/Pelvis: THORACIC SPINE/UPPER BACK: Yes paraspinal muscle tenderness Extremity: GENERAL: Yes normal exam except as noted and No edema Neuro: COMMON NORMALS: moves all extremities SENSORIUM/ORIENTATION: Yes alert and No Orientation impaired Psych: COMMON NORMALS: mental status grossly normal and Normal thought process present THOUGHT PROCESS: Normal thought process present Course Vital Signs: Vital signs: Vital Signs Temperature 98.5 F 09/09/22 20:26 Pulse Rate 59 L 09/09/22 23:02 Respiratory Rate 16 09/09/22 23:02 Blood Pressure 132/90 09/09/22 23:02 Pulse Oximetry 99 09/09/22 23:02 Oxygen Delivery Me thod 09/09/22 22:32 MDM - Extremity (Nontraumatic) Medical Decision Making 62-year-old lady with recent diagnosis of COVID presenting to the emergency department due to pain between shoulder blades with radiation to left arm. There is a reproducible component on exam however given recent illness and overall clinical picture further evaluation is warranted. Analgesia given. EKG shows sinus rhythm, no STEMI. Laboratory studies with unremarkable hematologic panel. D-dimer is negative. No significant metabolic abnormalities. Chest x-ray with no lobar consolidation or pneumothorax. Improvement with repeat dose of treatment Most likely cause of patient symptoms is musculoskeletal back pain. No red flag symptoms. The results of ED evaluation were discussed with the patient including prescriptions and/or symptomatic cares (if applicable) including appropriate and responsible use, followup plan, and return precautions. The patient verbalized understanding and felt safe for discharge. Medical Records I reviewed the patient's medical records. Lab Data I reviewed the patient's lab results. : 09/09/22 22:18 09/09/22 22:18 Radiology Impressions Chest X-Ray 09/09/22 21:47 IMPRESSION: No acute findings. Laboratory Results WBC 7.5 10^3/uL (4.0-10.0) 09/09/22 22:18 RBC 4.62 10^6/uL (4.1-5.3) 09/09/22 22:18 Hgb 13.0 g/dL (11.5-15.3) 09/09/22 22:18 Hct 41.6 % (37.0-47.0) 09/09/22:18 MCV 90.0 fl (81-99) 09/09/22 22:18 MCH 28.1 pg (28.0-34.0) 09/09/22:18 MCHC 31.3 g/dL (30.0-36.0) 09/09/22:18 RDW 13.7 % (12.1-15.1) 09/09/22 22:18 Plt Count 281 10^3/cmm (130-400) 09/09/22 22:18 MPV 10.4 fL (7.4-10.4) 09/09/22 22:18 Neut % (Auto) 44.9 % 09/09/22 22:18 Lymph % (Auto) 37.9 % 09/09/22 22:18 [place] % (Auto) 8.4 % 09/09/22 22:18 Eos % (Auto) 8.0 % 09/09/22 22:18 Baso % (Auto) 0.7 % 09/09/22 22:18 Neut # (Auto) 3.38 10^3/uL (1.8-7.7) 09/09/22 22:18 Lymph # (Auto) 2.9 10^3/uL (0.8-4.8) 09/09/22 22:18 [place] # (Auto) 0.6 10^3/uL (0.2-0.9) 09/09/22 22:18 Eos # (Auto) 0.6 10^3/uL (0.0-0.8) 09/09/22 22:18 Baso # (Auto) 0.1 10^3/uL (0.0-0.1) 09/09/22 22:18 Nucleated RBC % (auto) 0 % 09/09/22:18 Nucleated RBCs # 0.0 /100WBC 09/09/22 22:18 D-Dimer 0.52 ug/mIFEU (0-0.59) 09/09/22 22:18 Sodium 138 mmol/L (136-145) 09/09/22 22:18 Potassium 4.2 mmol/L (3.5-5.1) 09/09/22 22:18 Chloride 101 mmol/L (98-107) 09/09/22 22:18 Carbon Dioxide 25 mmol/L (22-29) 09/09/22 22:18 Anion Gap 16.2 (5-19) 09/09/22 22:18 BUN 11 mg/dL (8-23) 09/09/22 22:18 Creatinine 0.8 mg/dL (0.5-0.9) 09/09/22 22:18 GFR Calculation 73.2 mL/min (90-130) L 09/09/22 22:18 Glucose 104 mg/dL (65-115) 09/09/22 22:18 Calculated Osmolality 286 mOsm/kg (285-295) 09/09/22 22:18 Calcium 9.6 mg/dL (8.5-10.5) 09/09/22 22:18 Total Bilirubin 0.3 mg/dL (0.15-1.2) 09/09/22 22:18 AST 14 U/L (0-32) 09/09/22 22:18 ALT 10 U/L (0-33) 09/09/22 22:18 Alkaline Phosphatase 75 U/L (35-105) 09/09/22 22:18 Troponin T Baseline 6 ng/L (0-10) 09/09/22 22:18 NT-Pro-B Natriuret Pep 232 pg/mL (0-125) H 09/09/22 22:18 Total Protein 5.9 g/dL (6.6-8.7) L 09/09/22 22:18 Albumin 4.0 g/dL (3.5-5.2) 09/09/22 22:18 Globulin 1.9 g/dL (1.3-4.6) 09/09/22 22:18 Lipase 40 U/L (13-60) 09/09/22 22:18 Discharge Plan Discharge Patient Disposition: Home Clinical Impression: Back pain, Muscle spasm of back Condition: Stable Prescriptions: New Valium 2 mg tablet 2 mg PO TID PRN (Reason: muscle spasm) Qty: 6 0RF No Action multivitamin Tablet 1 tab PO DAILY pantoprazole 40 mg tablet,delayed release (DR/EC) 40 mg PO DAILY Qty: 14 0RF aspirin 81 mg tablet,delayed release (DR/EC) 81 mg PO DAILY@09 duloxetine 60 mg capsule,delayed release(DR/EC) 120 mg PO DAILY@09 Qty: 60 2RF buspirone 5 mg tablet 5 mg PO TID Qty: 90 2RF Incruse Ellipta 62.5 mcg/actuation blister with device 1 inh inhalation DAILY Qty: 30 3RF diazepam 10 mg tablet 5 mg PO Q6H PRN (Reason: Anxiety) Rx Instructions: (MAY TAKE AN ADDITIONAL THROUGHOUT THE DAY) Discharge Orders: Discharge ED (Routine); Ordered 09/09/22 Ordered By: Gerry Kwan Referrals: Antwan Soni, [Primary Care Provider] - Discharge Diet: Usual diet Discharge Activity: Increase activity as tolerated Patient Instructions: Diazepam (By mouth), Muscle Spasm (ED), Back Pain (ED), Opioid Safety, Pain Management Activity Restrictions/Additional Instructions: Thank you for visiting the emergency department. You were seen and evaluated for back pain. The exact cause of your symptoms is unclear though does not appear to be related to your lungs or heart at this time and does not require further inpatient management. Please continue to use [id number] medications for symptom treatment, do not exceed the daily recommended dosages and please keep in mind that many namebrand medications contain the same active ingredients. Please follow-up with a primary care provider. Return to the emergency department for worsening symptoms or anything else that you are concerned about a feel needs emergency department evaluation. Coding Level of Care Code ED Intranet Support for Carlos Fwjoe Exam Comprehensive
--- NOTE | 2022-09-09 21:47 | XRR_ITS ---
PROCEDURE INFORMATION: Exam: XR Chest Exam date and time: 09/09/2022 11:28 PM Age: 62 years old Clinical indication: Chest pressure; Prior surgery; Surgery type: Gb. RT breast lumpectomy; Patient HX: C/O chest pain with SOB. Hypertensive on monitor. ; Additional info: Back pain, SOB TECHNIQUE: Imaging protocol: Radiologic exam of the chest. Views: 1 view. COMPARISON: CR XR chest 2V* [id number] 11/30/2020 1:14 PM FINDINGS: Lungs: Unremarkable. No consolidation. Pleural spaces: Unremarkable. No pleural effusion. No pneumothorax. Heart/Mediastinum: Unremarkable. No cardiomegaly. Bones/joints: Unremarkable. XR/XR chest 1V portable [id number] IMPRESSION: No acute findings.
[2022-09-09 22:21] VITALS: RESP 16
[2022-09-09] MEDS: fentaNYL 50 mcg/mL INJ 2mL IVP (22:21)
[2022-09-09 22:25] LABS: Basophils # 0.1 10^3/uL (0.0-0.1); Basophils % 0.7 %; Eosinophils # 0.6 10^3/uL (0.0-0.8); Hematocrit 41.6 % (37.0-47.0); Lymphocytes # 2.9 10^3/uL (0.8-4.8); Lymphocytes % 37.9 %; Mean Corpuscular HGB Conc 31.3 g/dL (30.0-36.0); Mean Corpuscular Hemoglobin 28.1 pg (28.0-34.0); Mean Platelet Volume 10.4 fL (7.4-10.4); Monocytes # 0.6 10^3/uL (0.2-0.9); Monocytes % 8.4 %; Neutrophils # 3.38 10^3/uL (1.8-7.7); Neutrophils % 44.9 %; Nucleated Red Blood Cells % 0 %; Platelet Count 281 10^3/cmm (130-400); Red Blood Count 4.62 10^6/uL (4.1-5.3); Red Cell Distribution Width 13.7 % (12.1-15.1); White Blood Count 7.5 10^3/uL (4.0-10.0)
[2022-09-09 22:32] VITALS: BP 150/103; PULSE 59; RESP 16; O2SAT 99
[2022-09-09 22:50] LABS: D Dimer 0.52 ug/mIFEU (0-0.59)
[2022-09-09 22:58] LABS: Troponin(5th) Baseline 6 ng/L (0-10)
[2022-09-09] MEDS: acetaminophen 500 mg Tablet 1000 MG PO (23:01)
[2022-09-09] MEDS: cyclobenzaprine 10 mg Tablet PO (23:01)
[2022-09-09] MEDS: ketorolac 30 mg/mL INJ 15 MG IVP (23:01)
[2022-09-09 23:02] VITALS: BP 132/90; PULSE 59; RESP 16; O2SAT 99
[2022-09-09 23:12] LABS: Alanine Aminotransferase 10 U/L (0-33); Alkaline Phosphatase 75 U/L (35-105); Aspartate Amino Transferase 14 U/L (0-32); Blood Urea Nitrogen 11 mg/dL (8-23); Calcium 9.6 mg/dL (8.5-10.5); Carbon Dioxide 25 mmol/L (22-29); Chloride 101 mmol/L (98-107); Globulin 1.9 g/dL (1.3-4.6); Glomerular Filtration Rate 73.2 mL/min (90-130); Glucose 104 mg/dL (65-115); Lipase 40 U/L (13-60); NT Pro B Type Natriuretic Pept 232 pg/mL (0-125); Osmolality Calculated 286 mOsm/kg (285-295); Sodium 138 mmol/L (136-145); Total Bilirubin 0.3 mg/dL (0.15-1.2); Total Protein 5.9 g/dL (6.6-8.7)
[2022-09-09 23:13] LABS: Anion Gap 16.2 (5-19); Potassium 4.2 mmol/L (3.5-5.1)
[2022-09-09] MEDS: diazePAM 2 mg Tablet PO (23:33)
== END 2022-09-10 00:06 | disposition home or self-care (01) ==
PROVIDERS: Emergency Provider Emergency Medicine; PCP Internal Medicine
DX: M54.9 Dorsalgia, unspecified (principal); M62.830 Muscle spasm of back; Z79.82 Long term (current) use of aspirin; Z87.891 Personal history of nicotine dependence; I10 Essential (primary) hypertension
CPT/HCPCS: 71045; 80053; 83690; 83880; 84484; 85025; 85378; 93005; 96374; 96375; 99285; J1885; J3010

== ENCOUNTER 2024-09-13 08:54 | Oncology outpatient (recurring) (ONCR) | payer MEDICARE, OTHER, SELFPAY ==
[2024-09-13 09:46] VITALS: BP 163/110; PULSE 76; RESP 16; TEMP 36.9; O2SAT 97
[2024-09-13 09:55] VITALS: BP 150/90
[2024-09-13] MEDS: omalizumab 150 mg/mL SYR 300 MG SUBCUT (10:00)
[2024-09-13 10:24] VITALS: BP 160/90
--- NOTE | 2024-09-13 10:24 | PC.NURSE ---
patient to monitor blood pressure at home.
== END 2024-10-02 23:59 | disposition home or self-care (01) ==
PROVIDERS: PCP Internal Medicine; Visit Provider Internal Medicine
DX: Z79.899 Other long term (current) drug therapy (principal); L50.9 Urticaria, unspecified
CPT/HCPCS: J2357

== ENCOUNTER 2024-10-12 15:49 | Oncology outpatient (recurring) (ONCR) | payer MEDICARE, OTHER, SELFPAY ==
[2024-10-12] MEDS: omalizumab 150 mg/mL SYR 300 MG SUBCUT (15:52)
== END 2024-11-02 23:59 | disposition home or self-care (01) ==
PROVIDERS: PCP Internal Medicine; Visit Provider Internal Medicine
DX: Z79.899 Other long term (current) drug therapy; L50.1 Idiopathic urticaria
CPT/HCPCS: 96402; J2357

== ENCOUNTER 2024-11-09 07:59 | Oncology outpatient (recurring) (ONCR) | payer MEDICARE, OTHER, SELFPAY ==
[2024-11-09 08:26] VITALS: BP 137/84; PULSE 82; RESP 16; O2SAT 98
[2024-11-09] MEDS: omalizumab 150 mg/mL SYR 300 MG SUBCUT (08:29)
== END 2024-12-03 23:59 | disposition home or self-care (01) ==
PROVIDERS: PCP Family Medicine; Visit Provider Internal Medicine
DX: L50.1 Idiopathic urticaria (principal); Z79.899 Other long term (current) drug therapy
CPT/HCPCS: 96372; J2357

== ENCOUNTER 2024-12-10 08:26 | Oncology outpatient (recurring) (ONCR) | payer MEDICARE, OTHER, SELFPAY ==
[2024-12-10 08:33] VITALS: BP 149/91; PULSE 93; RESP 18; TEMP 36.9; O2SAT 94
[2024-12-10] MEDS: omalizumab 150 mg SDV 300 MG SUBCUT (10:08)
== END 2024-12-31 23:59 | disposition home or self-care (01) ==
PROVIDERS: PCP Family Medicine; Visit Provider Internal Medicine
DX: L50.1 Idiopathic urticaria (principal); Z79.899 Other long term (current) drug therapy
CPT/HCPCS: 96372; J2357

== ENCOUNTER 2025-01-07 08:55 | Oncology outpatient (recurring) (ONCR) | payer MEDICARE, OTHER, SELFPAY ==
[2025-01-07 09:04] VITALS: BP 138/84; PULSE 74; RESP 17; TEMP 36.6; O2SAT 96
[2025-01-07] MEDS: omalizumab 150 mg SDV 300 MG SUBCUT (10:02)
== END 2025-01-31 23:59 | disposition home or self-care (01) ==
PROVIDERS: PCP Family Medicine; Visit Provider Internal Medicine
DX: L50.1 Idiopathic urticaria (principal); Z79.899 Other long term (current) drug therapy
CPT/HCPCS: 96372; J2357

== ENCOUNTER 2025-02-04 08:39 | Oncology outpatient (recurring) (ONCR) | payer MEDICARE, OTHER, SELFPAY ==
[2025-02-04] MEDS: omalizumab 150 mg SDV 300 MG SUBCUT (09:27)
== END 2025-03-02 23:59 | disposition home or self-care (01) ==
PROVIDERS: PCP Family Medicine; Visit Provider Internal Medicine
DX: L50.1 Idiopathic urticaria (principal); Z79.899 Other long term (current) drug therapy
CPT/HCPCS: 96372; J2357

== ENCOUNTER 2025-04-01 09:00 | Oncology outpatient (recurring) (ONCR) | payer MEDICARE, OTHER, SELFPAY ==
[2025-03-04] MEDS: omalizumab 150 mg SDV 300 MG SUBCUT (09:15)
[2025-04-01] MEDS: omalizumab 150 mg SDV 300 MG SUBCUT (09:12)
[2025-04-01 09:19] VITALS: BP 163/93; PULSE 70; RESP 17; TEMP 36.9; O2SAT 97
== END 2025-04-02 23:59 | disposition home or self-care (01) ==
PROVIDERS: PCP Family Medicine; Visit Provider Internal Medicine
DX: Z53.9 Procedure and treatment not carried out, unspecified reason; L50.1 Idiopathic urticaria; Z79.899 Other long term (current) drug therapy
CPT/HCPCS: 96372; J2357

== ENCOUNTER 2025-04-29 08:46 | Oncology outpatient (recurring) (ONCR) | payer MEDICARE, OTHER, SELFPAY ==
[2025-04-29] MEDS: omalizumab 150 mg SDV 300 MG SUBCUT (09:23)
[2025-04-29 09:26] VITALS: PULSE 7; RESP 16; TEMP 36.5; O2SAT 95
== END 2025-05-02 23:59 | disposition home or self-care (01) ==
LOC: ONCMED 08:46
PROVIDERS: PCP Family Medicine; Visit Provider Internal Medicine
DX: L50.1 Idiopathic urticaria (principal); Z79.899 Other long term (current) drug therapy
CPT/HCPCS: 96372; J2357

== ENCOUNTER 2025-05-27 08:57 | Oncology outpatient (recurring) (ONCR) | payer MEDICARE, OTHER, SELFPAY ==
[2025-05-27] MEDS: omalizumab 150 mg SDV 300 MG SUBCUT (09:16)
== END 2025-06-02 23:59 | disposition home or self-care (01) ==
PROVIDERS: PCP Family Medicine; Visit Provider Internal Medicine
DX: L50.1 Idiopathic urticaria (principal); Z79.899 Other long term (current) drug therapy
CPT/HCPCS: 96372; J2357

== ENCOUNTER 2025-06-24 08:54 | Oncology outpatient (recurring) (ONCR) | payer MEDICARE, OTHER, SELFPAY ==
[2025-06-24] MEDS: omalizumab 150 mg SDV 300 MG SUBCUT (09:39)
== END 2025-07-03 23:59 | disposition home or self-care (01) ==
LOC: ONCMED 08:54
PROVIDERS: PCP Family Medicine; Visit Provider Internal Medicine
DX: L50.1 Idiopathic urticaria (principal); Z79.899 Other long term (current) drug therapy
CPT/HCPCS: 96372; J2357

== ENCOUNTER 2025-07-22 09:02 | Oncology outpatient (recurring) (ONCR) | payer MEDICARE, OTHER, SELFPAY ==
[2025-07-22] MEDS: omalizumab 150 mg SDV 300 MG SUBCUT (10:42)
== END 2025-08-02 23:59 | disposition home or self-care (01) ==
PROVIDERS: PCP Family Medicine; Visit Provider Allergy & Immunology
DX: L50.1 Idiopathic urticaria (principal); Z79.899 Other long term (current) drug therapy
CPT/HCPCS: 96372; J2357

== ENCOUNTER 2025-08-22 11:01 | Oncology outpatient (recurring) (ONCR) | payer MEDICARE, OTHER, SELFPAY ==
[2025-08-22] MEDS: omalizumab 150 mg SDV 300 MG SUBCUT (11:37)
== END 2025-09-02 23:59 | disposition home or self-care (01) ==
PROVIDERS: PCP Family Medicine; Visit Provider Allergy & Immunology
DX: L50.1 Idiopathic urticaria (principal); Z79.899 Other long term (current) drug therapy
CPT/HCPCS: 96372; J2357

== ENCOUNTER 2025-09-13 08:53 | Outpatient (CLI) | payer MEDICARE, OTHER, SELFPAY ==
--- NOTE | 2025-09-13 09:04 | MM_ITS ---
WS: [id number] BILATERAL 3D TOMOSYNTHESIS DIGITAL SCREENING MAMMOGRAPHY WITH CAD CLINICAL INFORMATION: SCREENING HISTORY: Screening mammogram. No current complaints. COMPARISON: 2021 TECHNIQUE: Bilateral CC and MLO views. FINDINGS: The breasts are composed of heterogeneous fibroglandular density tissue, which can limit the detection of small underlying mass lesions. No suspicious mass, asymmetry, calcifications, or architectural distortion. No evidence of malignancy. MM/MM scr tomosynthesis [id number] IMPRESSION: DENSITY: The breasts are heterogeneously dense, which may obscure small masses. BI-RADS: 1 - Negative FOLLOW UP: 1 Year Follow-up Recommend return to annual screening mammography.
== END 2025-09-13 08:54 | disposition home or self-care (01) ==
LOC: RAD 08:56
PROVIDERS: PCP Family Medicine; Visit Provider Family Medicine
DX: Z12.31 Encounter for screening mammogram for malignant neoplasm of breast (principal); R92.333 Mammographic heterogeneous density, bilateral breasts; R92.323 Mammographic fibroglandular density, bilateral breasts
CPT/HCPCS: 77063; 77067

== ENCOUNTER 2025-09-19 09:28 | Oncology outpatient (recurring) (ONCR) | payer MEDICARE, OTHER, SELFPAY ==
[2025-09-19] MEDS: omalizumab 150 mg SDV 300 MG SUBCUT (09:55)
== END 2025-10-02 23:59 | disposition home or self-care (01) ==
PROVIDERS: PCP Family Medicine; Visit Provider Allergy & Immunology
DX: L50.1 Idiopathic urticaria (principal); Z79.899 Other long term (current) drug therapy
CPT/HCPCS: 96372; J2357

== ENCOUNTER 2025-10-17 08:55 | Oncology outpatient (recurring) (ONCR) | payer MEDICARE, OTHER, SELFPAY ==
[2025-10-17] MEDS: omalizumab 150 mg SDV 300 MG SUBCUT (09:34)
== END 2025-11-02 23:59 | disposition home or self-care (01) ==
PROVIDERS: PCP Family Medicine; Visit Provider Allergy & Immunology
DX: L50.1 Idiopathic urticaria (principal); Z79.899 Other long term (current) drug therapy
CPT/HCPCS: 96372; J2357